=== PATIENT | male | born 1945 | race Two or more races ===

== ENCOUNTER 2017-09-21 13:43 | Emergency (ER) | payer MEDICARE, OTHER ==
[~2017-09-21] VITALS: Ht 185.4 cm; Wt 72.1 kg
[2017-09-21 13:50] VITALS: BP 144/87
--- NOTE | 2017-09-21 17:06 | NUR ---
CALLED [facility] FOR TRANSPORT ETA OF 1830 WAS GIVEN. TRIP#[id number]
== END 2017-09-21 18:44 | disposition home or self-care (01) ==
LOC: ER 13:46
DX: L89.619 Pressure ulcer of right heel, unspecified stage (principal); E11.9 Type 2 diabetes mellitus without complications; F32.9 Major depressive disorder, single episode, unspecified; G47.00 Insomnia, unspecified; I10 Essential (primary) hypertension; Z86.73 Personal history of transient ischemic attack (TIA), and cerebral infarction without residual deficits
CPT/HCPCS: 99283; A4606 ×2; Z7610

== ENCOUNTER 2017-09-29 12:20 | Inpatient (IN) | payer MEDICARE, OTHER ==
[~2017-09-29] VITALS: Ht 170.2 cm; Wt 70.3 kg
--- NOTE | 2017-09-29 12:20 | NUR ---
[facility],SENT BY DR BRICEÑO FOR FAILURE TO THRIVE POOR PO INTAKE
--- NOTE | 2017-09-29 12:35 | NUR ---
DR BRICEÑO WAS PAGED.
--- NOTE | 2017-09-29 12:42 | NUR ---
R HAND 20G INSERTED, BLOOD DRAWN, CALLED LAB FOR STEAM FINISHER
--- NOTE | 2017-09-29 12:50 | NUR ---
CALLED NURSING LOOM CHECKER AND REQUESTED A MED SURG BED FOR THIS PT.
[2017-09-29 13:10] LABS: BASOPHILS # (AUTO) 0.1 /CMM (0.0-0.2); BASOPHILS % (AUTO) 1.3 % (0.0-2.0); EOSINOPHILS % (AUTO) 3.8 % (0.0-6.0); HEMATOCRIT 31 % (39-51); HEMOGLOBIN 10.3 g/dL (13.5-17.5); LYMPHOCYTES # (AUTO) 1.8 /CMM (0.8-4.8); LYMPHOCYTES % (AUTO) 25.1 % (20.0-44.0); MEAN CORPUSCULAR HGB CONC 34 g/dl (31.0-36.0); MEAN CORPUSCULAR VOLUME 84 fL (80-96); MONOCYTES # (AUTO) 0.4 /CMM (0.1-1.30); MONOCYTES % (AUTO) 4.9 % (2.0-12.0); NEUTROPHILS # (AUTO) 4.6 /CMM (1.8-8.9); NEUTROPHILS % (AUTO) 64.9 % (43.0-81.0); PLATELET COUNT (AUTO) 134 /CMM (150-450); RDW COEFFICIENT OF VARIATION 13.4 (11.5-15.0); RED BLOOD CELL COUNT(AUTO) 3.64 MIL/uL (4.5-6.0); WHITE BLOOD COUNT (AUTO) 7.2 K/uL (4.3-11.0)
[2017-09-29 13:19] LABS: CALCIUM, SERUM 8.3 mg/dL (8.5-10.1); CREATININE 1.2 mg/dL (0.6-1.3); POTASSIUM 4.6 mmol/L (3.5-5.1)
[2017-09-29 13:25] LABS: ALBUMIN 2.9 g/dL (3.4-5.0); BILIRUBIN,DIRECT 0.1 mg/dL (0.0-0.2); BILIRUBIN,TOTAL 0.6 mg/dL (0.2-1.0); TOTAL PROTEIN, SERUM 6.6 g/dL (6.4-8.2)
[2017-09-29] MEDS ORDERED: Z GUARD REMEDY 2 OZ OINT TP PRN (13:30)
[2017-09-29] MEDS ORDERED: HYDROCODONE/APAP 5/325MG 1 EACH TABLET PO PRN (13:30)
[2017-09-29] MEDS ORDERED: MAG HYDROX/AL HYDROX/SIMETH 30 ML UDC PO PRN (13:30)
[2017-09-29] MEDS ORDERED: MAGNESIUM HYDROXIDE 30 ML UDC PO PRN ×2 (13:30→18:00)
[2017-09-29] MEDS ORDERED: ONDANSETRON HCL/PF 4 MG/2 ML VIAL IVP PRN (13:30)
[2017-09-29] MEDS ORDERED: ACETAMINOPHEN 325 MG TABLET PO PRN ×2 (13:30→18:00)
--- NOTE | 2017-09-29 13:35 | NUR ---
UNABLE TO PROVIDE URINE DR DELGADO AWARE
--- NOTE | 2017-09-29 13:48 | NUR ---
PATIENT ASSIGNED TO 310-2, PEDRO PABLO RUGGIERO KINZA
--- NOTE | 2017-09-29 13:56 | NUR ---
given report to [facility] admitting . failure to thrive
[2017-09-29] MEDS ORDERED: ASPI-1169 PO (13:57)
[2017-09-29] MEDS ORDERED: LISI40TA4 PO (13:57)
[2017-09-29] MEDS ORDERED: BISA10SU61 RC (13:57)
[2017-09-29] MEDS ORDERED: HYDR-4076 PO (13:57)
[2017-09-29] MEDS ORDERED: CHOL20004 PO (13:57)
[2017-09-29] MEDS ORDERED: ASCO500T9 PO (13:57)
[2017-09-29] MEDS ORDERED: ZOLP10TA2 PO (13:57)
[2017-09-29] MEDS ORDERED: ATOR10TA PO (13:57)
[2017-09-29] MEDS ORDERED: LIDO30AD10 TP (13:57)
[2017-09-29] MEDS ORDERED: TRAZ-182 PO (13:57)
[2017-09-29] MEDS ORDERED: FERR325T23 PO (13:57)
[2017-09-29] MEDS ORDERED: DOCU-141 PO (13:57)
[2017-09-29] MEDS ORDERED: ZINC220C6 PO (13:57)
[2017-09-29] MEDS ORDERED: AMIN887L PO (13:57)
[2017-09-29] MEDS ORDERED: INSU100V30 SQ (13:57)
[2017-09-29] MEDS ORDERED: ACET325T53 PO (13:57)
[2017-09-29] MEDS ORDERED: TAMS0.4C34 PO (13:57)
[2017-09-29] MEDS ORDERED: ONDA4TAB8 PO (13:57)
[2017-09-29] MEDS ORDERED: MAGN400O6 PO (13:57)
[2017-09-29] MEDS ORDERED: AMLO10TA6 PO (13:57)
[2017-09-29] MEDS ORDERED: METF-440 PO (13:57)
[2017-09-29] MEDS ORDERED: MAGN400T6 PO (13:57)
[2017-09-29] MEDS ORDERED: MULT-447 PO (13:57)
[2017-09-29] MEDS ORDERED: NA P133E RC (13:57)
[2017-09-29 15:00] VITALS: BP 109/73
--- NOTE | 2017-09-29 15:00 | NUR ---
RN NOTES PATIENT RECEIVED FROM ER VIA GURNEY, PT AWAKE ALERT AND VERBALLY RESPONSIVE ABLE TO MAKE NEEDS KNOWN. RESPIRATIONS EVEN AND UNLABORED, DENIES ANY PAIN OR DISCOMFORT. 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 IV ACCESS TO RIGHT HAND PATENT AND INTACT NO REDNESS OR INFILTRATION NOTED. DR. BRICEÑO AWARE PT IS ON UNIT, AWARE OF MED RECON WILL CARRY OUT ADMISSION ORDERS. ORIENTED PT TO ROOM AND UNIT, WILL CONTINUE TO MONITOR
[2017-09-29] MEDS: ENOXAPARIN SODIUM 40 MG/0.4 ML DISP.SYRIN SQ SCH (15:12)
[2017-09-29] MEDS ORDERED: hydrALAZINE HCL 25 MG TABLET PO PRN (18:00)
[2017-09-29] MEDS ORDERED: ZOLPIDEM TARTRATE 10 MG TABLET PO PRN (18:00)
[2017-09-29] MEDS ORDERED: BISACODYL SUPP (10 MG) 10 MG/SUPP.RECT SUPP.RECT RC PRN (18:00)
[2017-09-29] MEDS ORDERED: NA PHOS,M-B/NA PHOS,DI-BA 1 EA ENEMA RC PRN (18:00)
[2017-09-29] MEDS ORDERED: ONDANSETRON 4 MG TAB.RAPDIS PO PRN (18:00)
--- NOTE | 2017-09-29 19:36 | NUR ---
RN CLOSING NOTES PATIENT AWAKE ALERT AND VERBALLY RESPONSIVE,RESPIRATIONS EVEN AND UNLABORED, DENIES ANY PAIN OR DISCOMFORT. 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 IV ACCESS TO RIGHT HAND PATENT AND INTACT NO REDNESS OR INFILTRATION NOTED. DR. BRICEÑO AWARE PT IS ON UNIT, AWARE OF MED RECON WILL CARRY OUT ADMISSION ORDERS. ORIENTED PT TO ROOM AND UNIT, ENDORSED TO NEXT SHIFT FOR CONTINUITY OF CARE
[2017-09-29 20:00] VITALS: BP 117/72
--- NOTE | 2017-09-29 20:00 | NUR ---
MS JO-ANN INITIAL NOTES SEEN PT IN BED ON SITTING POSITION AWAKE AND ALERT WATCHING TV AT THIS TIME. DENIES ANY PAIN OR ANY DISCOMFORT. BREATHING EVEN AND NON-LABORED . KEPT HIM WARM AND COMFORTABLE AT ALL TIME. PLACE CALL LIGHT AT REACH. WILL CONTINUE TO MONITOR.
[2017-09-29] MEDS: MAGNESIUM OXIDE 400 MG TABLET PO SCH (21:18)
[2017-09-29] MEDS: TAMSULOSIN 0.4 MG CAP.SR.24H PO SCH (21:18)
[2017-09-29] MEDS: TRAZODONE 50 MG TABLET PO SCH (21:19)
[2017-09-29] MEDS: ATORVASTATIN 10 MG TABLET PO SCH (21:19)
[2017-09-29] MEDS: ZOLPIDEM TARTRATE 5 MG TABLET PO PRN (21:19)
--- NOTE | 2017-09-30 | NUR ---
MS MACHINIST GENERAL NOTES PT SLEEPING COMFORTABLY AFTER SLEEP MEDICATION GIVEN ORDERED. RESPIRATION EVEN AND NON-LABORED. KEPT HIM WARM AND COMFORTABLE AT ALL TIMES. PLACE CALL LIGHT AT REACH.
--- NOTE | 2017-09-30 06:54 | NUR ---
MS COTTON PICKER CLOSING NOTES PT WOKE UP AND MORNING CARE DONE . SLEPT WELL AND STABLE RAPHAEL THE NIGHT AND ALL DUE MEDS GIVEN . KEPT HIM WARM AND COMFORTABLE AT ALL TIMES. PLACE CALL LIGHT AT REACH. ENDORSE TO AM NURSE FOR CONTINUITY OF CARE. PLACE CALL LIGHT AT REACH.
[2017-09-30 06:55] LABS: BASOPHILS # (AUTO) 0.1 /CMM (0.0-0.2); HEMATOCRIT 29 % (39-51); HEMOGLOBIN 9.4 g/dL (13.5-17.5); LYMPHOCYTES # (AUTO) 1.8 /CMM (0.8-4.8); LYMPHOCYTES % (AUTO) 28.7 % (20.0-44.0); MEAN CORPUSCULAR HGB CONC 33 g/dl (31.0-36.0); MEAN CORPUSCULAR VOLUME 85 fL (80-96); MONOCYTES # (AUTO) 0.5 /CMM (0.1-1.30); MONOCYTES % (AUTO) 7.2 % (2.0-12.0); NEUTROPHILS # (AUTO) 3.7 /CMM (1.8-8.9); NEUTROPHILS % (AUTO) 59.1 % (43.0-81.0); PLATELET COUNT (AUTO) 123 /CMM (150-450); RDW COEFFICIENT OF VARIATION 14.3 (11.5-15.0); RED BLOOD CELL COUNT(AUTO) 3.36 MIL/uL (4.5-6.0); WHITE BLOOD COUNT (AUTO) 6.3 K/uL (4.3-11.0)
[2017-09-30 07:18] LABS: CALCIUM, SERUM 8.5 mg/dL (8.5-10.1); CREATININE 0.9 mg/dL (0.6-1.3); PHOSPHORUS 3.2 mg/dL (2.5-4.9)
[2017-09-30 08:00] VITALS: BP 106/50
--- NOTE | 2017-09-30 08:00 | NUR ---
MS RN NOTES PATIENT IN BED RESTING NO SOB OR ACUTE DISTRESS NOTED. PATIENT ALERT, ORIENTED X 3. PERIPHERAL IV INTACT PATENT. BED IN LOW LOCKED POSITION, CALL LIGHT WITHIN REACH. WILL CONTINUE TO MONITOR.
[2017-09-30] MEDS: ASPIRIN 81 MG TAB.CHEW PO SCH (08:23)
[2017-09-30] MEDS: CHOLECALCIFEROL 1,000 UNIT TABLET (VIT D3) PO SCH (08:23)
[2017-09-30] MEDS: FERROUS SULFATE (325 MG) 325 MG/TAB TABLET PO SCH ×2 (08:23→16:47)
[2017-09-30] MEDS: ZINC SULFATE 220 MG CAPSULE PO SCH (08:23)
[2017-09-30] MEDS: ASCORBIC ACID 500 MG TABLET PO SCH (08:23)
[2017-09-30] MEDS: MULTIVIT, IRON, MIN NO. 8, FA 1 TAB PO SCH (08:23)
[2017-09-30] MEDS: DOCUSATE SODIUM 100 MG CAPSULE PO SCH (08:23)
[2017-09-30] MEDS: AMLODIPINE BESYLATE 10 MG TABLET PO SCH (08:24)
[2017-09-30] MEDS: LISINOPRIL (20MG) 20 MG TABLET PO SCH (08:24)
[2017-09-30] MEDS: LIDOCAINE 5% (PATCH) 1 EA PATCH TP SCH (08:24)
[2017-09-30] MEDS: PROSTAT (PYXIS) 30 ML UDC PO SCH (09:00)
[2017-09-30] MEDS ORDERED: LIDOCAINE 1% INJ 50 ML MDV IJ ONE (14:00)
--- NOTE | 2017-09-30 15:30 | NUR ---
MS RN NOTES PATIENT SEEN BY DR LOMBARDI PEDIATRIST CONSENT OBTAINED FOR DEBRIDEMENT OF THE LEFT HEEL. PATIENT VERBALIZED UNDERSTANDING OF PROCEDURE. DEBRIDEMENT PERFORMED PATIENT TOLERATED WELL. WILL CONTINUE TO MONITOR FOR BLEEDING.
[2017-09-30 16:00] VITALS: BP 143/86
--- NOTE | 2017-09-30 18:42 | NUR ---
MS RN NOTES PATIENT IN BED RESTING NO SOB OR ACUTE DISTRESS NOTED. ALL DUE MEDICATIONS ADMINISTERED. ALL NEEDS MET. WILL ENDORSE CARE TP PM SHIFT.
[2017-09-30 20:00] VITALS: BP 127/77
[2017-09-30] MEDS: ATORVASTATIN 10 MG TABLET PO SCH (21:10)
[2017-09-30] MEDS: TRAZODONE 50 MG TABLET PO SCH (21:10)
[2017-09-30] MEDS: MAGNESIUM OXIDE 400 MG TABLET PO SCH (21:10)
[2017-09-30] MEDS: TAMSULOSIN 0.4 MG CAP.SR.24H PO SCH (21:10)
[2017-09-30] MEDS: ENOXAPARIN SODIUM 40 MG/0.4 ML DISP.SYRIN SQ SCH (21:10)
[2017-09-30] MEDS: ZOLPIDEM TARTRATE 5 MG TABLET PO PRN (22:29)
[2017-10-01 04:00] VITALS: BP 135/84
--- NOTE | 2017-10-01 06:16 | NUR ---
MS RN NOTES AWAKE & RESPONSIVE. NOT IN ANY DISTRESS. NO SOB NOTED. DENIES ANY PAIN OR DISCOMFORT AT THIS TIME. WITH IV-HL PATENT & INTACT. MONITORED ACCORDINGLY. CALL LIGHT WITHIN REACH. BED IN LOWEST POSITION. SR UP X 2 FOR SAFETY. WILL ENDORSE TO NEXT SHIFT.
--- NOTE | 2017-10-01 07:15 | NUR ---
RN NOTES PT IS LAYING DOWN IN BED, RESTING COMFORTABLY. PT ON RA, RESPIRATIONS ARE EVEN AND UNLABORED. IV ON R HAND INTACT AND SL. NO SIGNS OF DISTRESS NOTED. SAFETY MEASURES ARE IN PLACE, CALL LIGHT IS IN REACH. WILL CONTINUE TO MONITOR.
[2017-10-01 08:00] VITALS: BP 120/75
[2017-10-01] MEDS: CHOLECALCIFEROL 1,000 UNIT TABLET (VIT D3) PO SCH (08:24)
[2017-10-01] MEDS: ASPIRIN 81 MG TAB.CHEW PO SCH (08:24)
[2017-10-01] MEDS: ZINC SULFATE 220 MG CAPSULE PO SCH (08:24)
[2017-10-01] MEDS: ASCORBIC ACID 500 MG TABLET PO SCH (08:24)
[2017-10-01] MEDS: FERROUS SULFATE (325 MG) 325 MG/TAB TABLET PO SCH ×2 (08:24→16:38)
[2017-10-01] MEDS: MULTIVIT, IRON, MIN NO. 8, FA 1 TAB PO SCH (08:24)
[2017-10-01] MEDS: DOCUSATE SODIUM 100 MG CAPSULE PO SCH (08:24)
[2017-10-01] MEDS: AMLODIPINE BESYLATE 10 MG TABLET PO SCH (08:24)
[2017-10-01] MEDS: LISINOPRIL (20MG) 20 MG TABLET PO SCH (08:24)
[2017-10-01] MEDS: PROSTAT (PYXIS) 30 ML UDC PO SCH (08:25)
[2017-10-01] MEDS: LIDOCAINE 5% (PATCH) 1 EA PATCH TP SCH (08:25)
[2017-10-01 16:00] VITALS: BP 129/78
[2017-10-01 16:03] VITALS: BP 129/78
--- NOTE | 2017-10-01 18:31 | NUR ---
RN NOTES PT IS SITTING UP IN BED, AWAKE AND ALERT. PT ON RA, RESPIRATIONS ARE EVEN AND UNLABORED. IV ON R HAND INTACT AND SL. ALL MEDS WERE GIVEN ORDERED AND PT NEEDS MET. WOUND TREATMENT DONE ORDERED. NO SIGNS OF DISTRESS NOTED. SAFETY MEASURES ARE IN PLACE, CALL LIGHT IS IN REACH. WILL ENDORSE TO ENGAGEMENT LEAD RN FOR CONTINUITY OF CARE.
[2017-10-01 20:00] VITALS: BP 126/76
[2017-10-01 20:43] VITALS: BP 169/105
[2017-10-01] MEDS: TAMSULOSIN 0.4 MG CAP.SR.24H PO SCH (21:50)
[2017-10-01] MEDS: MAGNESIUM OXIDE 400 MG TABLET PO SCH (21:50)
[2017-10-01] MEDS: TRAZODONE 50 MG TABLET PO SCH (21:50)
[2017-10-01] MEDS: ATORVASTATIN 10 MG TABLET PO SCH (21:50)
[2017-10-01] MEDS: ENOXAPARIN SODIUM 40 MG/0.4 ML DISP.SYRIN SQ SCH (21:51)
[2017-10-01] MEDS: ZOLPIDEM TARTRATE 5 MG TABLET PO PRN (22:03)
--- NOTE | 2017-10-01 22:11 | NUR ---
AMBIEN 5 MG TAB 1 PO GIVEN FOR SLEEP, PER PATIENT'S REQUEST
--- NOTE | 2017-10-02 06:10 | NUR ---
MS RN NOTES RECEIVED PT FROM [facility] , ENDORSED BY BAHMAN SHAFFER . PT IS AWAKE, A/O X 3 , VERBALLY RESPONSIVE NO DISTRESS NOR SOB NOTED. DENIES ANY PAIN OR DISCOMFORT AT THIS TIME. IV ON RIGHT HAND INTACT AND PATENT, NO S/S OF INFILTRATION NOTED. WITH CLEAN AND INTACT DRESSING ON RIGHT HEEL. ALL NEEDS ATTENDED AND MET. BARNEY CONT TO MONITOR
--- NOTE | 2017-10-02 06:12 | NUR ---
TRANSFERRED TO ROOM 2071, REPORT GIVEN TO BAHMAN DE LA TORRE FOR CONTINUITY OF CARE
--- NOTE | 2017-10-02 07:00 | NUR ---
MS RN NOTES PT IN BED, RESTING AT THIS TIME, APPEARS COMFORTABLE. NO DISTRESS, NO SOB NOTED, STABLE. NEEDS ATTENDED. IV SITE ON RIGHT HAND INTACT AND PATENT. CALL LIGHT WITHIN REACH. SAFETY PRECAUTIONS OBSERVED. WILL ENDORSE TO NEXT SHIFT FOR KINZA.
--- NOTE | 2017-10-02 07:30 | NUR ---
AM RN NOTE Receive patient awake, A/O X3 verbally responsive. No SOB noted resp even and non-labored. RU arm contracted. IV site intact and patent. Bed in low locked position. Will continue to monitor. Call light with in reach.
[2017-10-02 08:00] VITALS: BP 128/75
[2017-10-02] MEDS: ASCORBIC ACID 500 MG TABLET PO SCH (08:48)
[2017-10-02] MEDS: AMLODIPINE BESYLATE 10 MG TABLET PO SCH (08:48)
[2017-10-02] MEDS: FERROUS SULFATE (325 MG) 325 MG/TAB TABLET PO SCH ×2 (08:48→16:17)
[2017-10-02] MEDS: DOCUSATE SODIUM 100 MG CAPSULE PO SCH (08:48)
[2017-10-02] MEDS: CHOLECALCIFEROL 1,000 UNIT TABLET (VIT D3) PO SCH (08:49)
[2017-10-02] MEDS: MULTIVIT, IRON, MIN NO. 8, FA 1 TAB PO SCH (08:49)
[2017-10-02] MEDS: ZINC SULFATE 220 MG CAPSULE PO SCH (08:49)
[2017-10-02] MEDS: LIDOCAINE 5% (PATCH) 1 EA PATCH TP SCH (08:49)
[2017-10-02] MEDS: LISINOPRIL (20MG) 20 MG TABLET PO SCH (08:49)
[2017-10-02] MEDS: ASPIRIN 81 MG TAB.CHEW PO SCH (08:49)
[2017-10-02] MEDS: PROSTAT (PYXIS) 30 ML UDC PO SCH (08:57)
[2017-10-02 16:00] VITALS: BP 120/78
--- NOTE | 2017-10-02 18:40 | NUR ---
AM RN NOTE Patient resting in his bed, no acute distress noted. Will endorse care to next shift.
[2017-10-02 20:00] VITALS: BP 123/77
[2017-10-02] MEDS: ENOXAPARIN SODIUM 40 MG/0.4 ML DISP.SYRIN SQ SCH (21:09)
[2017-10-02] MEDS: ZOLPIDEM TARTRATE 5 MG TABLET PO PRN (22:51)
[2017-10-02] MEDS: ATORVASTATIN 10 MG TABLET PO SCH (22:51)
[2017-10-02] MEDS: TRAZODONE 50 MG TABLET PO SCH (22:51)
[2017-10-02] MEDS: MAGNESIUM OXIDE 400 MG TABLET PO SCH (22:51)
[2017-10-02] MEDS: TAMSULOSIN 0.4 MG CAP.SR.24H PO SCH (22:52)
--- NOTE | 2017-10-03 07:34 | NUR ---
MS RN OPENING NOTE PATIENT IS ALERT AND ORIENTED X3. NO PAIN AT THIS TIME. NO SOB OR DISTRESS NOTED. CALL LIGHT WITHIN REACH. SAFETY MEASURES IMPLEMENTED. ABLE TO COMMUNICATE NEEDS. IV INTACT AND PATENT NO REDNESS OR SWELLING NOTED. WOUND DRESSING TO BE DONE DAILY. AWAITING SNF PLACEMENT WILL FOLLOW UP WITH CASE MANAGEMENT. WILL CONTINUE TO MONITOR THROUGHOUT SHIFT.
[2017-10-03 08:00] VITALS: BP 130/88
[2017-10-03] MEDS: ASPIRIN 81 MG TAB.CHEW PO SCH (08:56)
[2017-10-03] MEDS: DOCUSATE SODIUM 100 MG CAPSULE PO SCH (08:56)
[2017-10-03] MEDS: ASCORBIC ACID 500 MG TABLET PO SCH (08:56)
[2017-10-03] MEDS: LISINOPRIL (20MG) 20 MG TABLET PO SCH (08:56)
[2017-10-03] MEDS: ZINC SULFATE 220 MG CAPSULE PO SCH (08:56)
[2017-10-03] MEDS: FERROUS SULFATE (325 MG) 325 MG/TAB TABLET PO SCH ×2 (08:56→16:11)
[2017-10-03] MEDS: MULTIVIT, IRON, MIN NO. 8, FA 1 TAB PO SCH (08:56)
[2017-10-03] MEDS: CHOLECALCIFEROL 1,000 UNIT TABLET (VIT D3) PO SCH (08:56)
[2017-10-03] MEDS: AMLODIPINE BESYLATE 10 MG TABLET PO SCH (08:57)
[2017-10-03] MEDS: LIDOCAINE 5% (PATCH) 1 EA PATCH TP SCH (08:57)
[2017-10-03] MEDS: PROSTAT (PYXIS) 30 ML UDC PO SCH (08:57)
[2017-10-03] MEDS: HYDROGEL DRESSING 90 GM TUBE TP SCH (09:30)
--- NOTE | 2017-10-03 12:59 | NUR ---
MS RN NOTE WOUND DRESSING CHANGED, WILL CHANGED NEEDED IF SOILED.
[2017-10-03 16:00] VITALS: BP 125/83
--- NOTE | 2017-10-03 19:47 | NUR ---
MS RN CLOSING NOTES PATIENT IN STABLE CONDITION. IN NO APPARENT DISTRESS. BEDSIDE RAILS ARE UPX2. BED IS LOCKED AND LOWERED. CALL LIGHT IS WITHIN REACH. IV LINE IS INTACT AND PATENT. WILL ENDORSE CARE TO BORDEREAU CLERK NURSE FOR KINZA.
--- NOTE | 2017-10-03 19:55 | NUR ---
RN OPENING NOTES RECEIVED REPORT FROM DAYSHIFT RN RADHA. FOUND Pt AWAKE, RESTING IN BED, WATCHING TV. NO S/S OF ACUTE DISTRESS OR SOB NOTED. Pt IS A/OX3, VERBAL, ABLE TO MAKE NEEDS KNOWN. NO C/O PAIN AT THIS TIME. IV ACCESS ON RHAND #20G, SL. SAFETY MEASURES IN PLACE. BED LOW, LOCKED, HOB ELEVATED, SIDE RAILS UP, CALL LIGHT AND BEDSIDE TABLE WITHIN REACH. WILL CONTINUE TO MONITOR Pt THROUGHOUT THE NIGHT FOR SAFETY.
[2017-10-03 20:00] VITALS: BP 115/75
[2017-10-03] MEDS: MAGNESIUM OXIDE 400 MG TABLET PO SCH (22:29)
[2017-10-03] MEDS: TAMSULOSIN 0.4 MG CAP.SR.24H PO SCH (22:29)
[2017-10-03] MEDS: TRAZODONE 50 MG TABLET PO SCH (22:29)
[2017-10-03] MEDS: ATORVASTATIN 10 MG TABLET PO SCH (22:29)
[2017-10-03] MEDS: ENOXAPARIN SODIUM 40 MG/0.4 ML DISP.SYRIN SQ SCH (22:30)
[2017-10-03] MEDS: ZOLPIDEM TARTRATE 5 MG TABLET PO PRN (22:32)
--- NOTE | 2017-10-03 22:51 | NUR ---
RN NOTES Pt REFUSED PICTURE OF SACRUM. ONLY ALLOWED PICTURE TO BE TAKEN OF HIS RT HEEL WOUND.
--- NOTE | 2017-10-04 06:55 | NUR ---
RN CLOSING NOTES NO SIGNIFICANT CHANGES IN Pt's CONDITION. Pt REMAINS STABLE AT THIS TIME. NO S/S OF ACUTE DISTRESS OR SOB NOTED DURING THE NIGHT. ALL NEEDS MET AND ATTENDED TO. SAFETY MEASURES IN PLACE. WILL ENDORSE TO DAYSHIFT RN FOR Pt's KINZA.
--- NOTE | 2017-10-04 07:37 | NUR ---
MS RN OPENING NOTES RECEIVED PATIENT IN STABLE CONDITION. IN NO APPARENT DISTRESS. BEDSIDE RAILS ARE UPX2. BED IS LOCKED AND LOWERED. CALL LIGHT IS WITHIN REACH. IV LINE IS INTACT AND PATENT. WILL CONTINUE TO MONITOR.
[2017-10-04 08:00] VITALS: BP 125/79
[2017-10-04] MEDS: ZINC SULFATE 220 MG CAPSULE PO SCH (08:25)
[2017-10-04] MEDS: AMLODIPINE BESYLATE 10 MG TABLET PO SCH (08:25)
[2017-10-04] MEDS: FERROUS SULFATE (325 MG) 325 MG/TAB TABLET PO SCH ×2 (08:25→16:11)
[2017-10-04] MEDS: ASCORBIC ACID 500 MG TABLET PO SCH (08:25)
[2017-10-04] MEDS: CHOLECALCIFEROL 1,000 UNIT TABLET (VIT D3) PO SCH (08:25)
[2017-10-04] MEDS: LISINOPRIL (20MG) 20 MG TABLET PO SCH (08:26)
[2017-10-04] MEDS: MULTIVIT, IRON, MIN NO. 8, FA 1 TAB PO SCH (08:26)
[2017-10-04] MEDS: ASPIRIN 81 MG TAB.CHEW PO SCH (08:26)
[2017-10-04] MEDS: DOCUSATE SODIUM 100 MG CAPSULE PO SCH (08:26)
[2017-10-04] MEDS: LIDOCAINE 5% (PATCH) 1 EA PATCH TP SCH (08:27)
[2017-10-04] MEDS: PROSTAT (PYXIS) 30 ML UDC PO SCH (08:27)
[2017-10-04] MEDS: HYDROGEL DRESSING 90 GM TUBE TP SCH (08:27)
--- NOTE | 2017-10-04 19:00 | NUR ---
MS RN CLOSING NOTES PATIENT IN STABLE CONDITION. IN NO APPARENT DISTRESS. BEDSIDE RAILS ARE UPX2. BED IS LOCKED AND LOWERED. CALL LIGHT IS WITHIN REACH. ALL NEEDS WERE MET. IV LINE IS INTACT AND PATENT. WILL ENDORSE CARE TO SUPERVISOR PORCELAIN DEPARTMENT NURSE FOR KINZA.
[2017-10-04 20:00] VITALS: BP 160/68
[2017-10-04] MEDS: TRAZODONE 50 MG TABLET PO SCH (22:04)
[2017-10-04] MEDS: ATORVASTATIN 10 MG TABLET PO SCH (22:04)
[2017-10-04] MEDS: MAGNESIUM OXIDE 400 MG TABLET PO SCH (22:04)
[2017-10-04] MEDS: TAMSULOSIN 0.4 MG CAP.SR.24H PO SCH (22:04)
[2017-10-04] MEDS: ENOXAPARIN SODIUM 40 MG/0.4 ML DISP.SYRIN SQ SCH (22:07)
[2017-10-04] MEDS: ZOLPIDEM TARTRATE 5 MG TABLET PO PRN (22:08)
--- NOTE | 2017-10-05 06:55 | NUR ---
RN CLOSING NOTES NO SIGNIFICANT CHANGES IN Pt's CONDITION. Pt REMAINS STABLE AT THIS TIME. NO S/S OF ACUTE DISTRESS OR SOB NOTED DURING THE NIGHT. ALL NEEDS MET AND ATTENDED TO. SAFETY MEASURES IN PLACE. POSSIBLE DC TODAY IN THE AM. WILL ENDORSE TO DAYSHIFT RN FOR Pt's KINZA.
--- NOTE | 2017-10-05 07:25 | NUR ---
RN NOTES PT IS SITTING UP IN BED, RESTING COMFORTABLY. PT ON RA, RESPIRATIONS ARE EVEN AND UNLABORED. IV ON R HAND INTACT AND SL. NO SIGNS OF DISTRESS NOTED. SAFETY MEASURES ARE IN PLACE, CALL LIGHT IS IN REACH. WILL CONTINUE TO MONITOR.
[2017-10-05 08:00] VITALS: BP 119/68
[2017-10-05] MEDS: ASPIRIN 81 MG TAB.CHEW PO SCH (08:32)
[2017-10-05] MEDS: MULTIVIT, IRON, MIN NO. 8, FA 1 TAB PO SCH (08:32)
[2017-10-05] MEDS: CHOLECALCIFEROL 1,000 UNIT TABLET (VIT D3) PO SCH (08:32)
[2017-10-05] MEDS: PROSTAT (PYXIS) 30 ML UDC PO SCH (08:32)
[2017-10-05] MEDS: LISINOPRIL (20MG) 20 MG TABLET PO SCH (08:32)
[2017-10-05] MEDS: FERROUS SULFATE (325 MG) 325 MG/TAB TABLET PO SCH ×2 (08:32→16:23)
[2017-10-05] MEDS: LIDOCAINE 5% (PATCH) 1 EA PATCH TP SCH (08:32)
[2017-10-05] MEDS: AMLODIPINE BESYLATE 10 MG TABLET PO SCH (08:32)
[2017-10-05] MEDS: DOCUSATE SODIUM 100 MG CAPSULE PO SCH (08:32)
[2017-10-05] MEDS: ASCORBIC ACID 500 MG TABLET PO SCH (08:32)
[2017-10-05] MEDS: ZINC SULFATE 220 MG CAPSULE PO SCH (08:32)
[2017-10-05] MEDS: HYDROGEL DRESSING 90 GM TUBE TP SCH (08:37)
[2017-10-05 12:00] VITALS: BP 111/71
[2017-10-05 16:00] VITALS: BP 117/68
--- NOTE | 2017-10-05 18:53 | NUR ---
RN NOTES PT IS SITTING UP IN BED, RESTING COMFORTABLY. PT ON RA, RESPIRATIONS ARE EVEN AND UNLABORED. IV ON R HAND INTACT AND PATENT. ALL MEDS WERE GIVEN ORDERED AND PT NEEDS MET. WOUND CARE PROVIDED ORDERED. NO SIGNS OF DISTRESS NOTED. SAFETY MEASURES ARE IN PLACE, CALL LIGHT IS IN REACH. WILL ENDORSE TO FAMILY LAW LEGAL ASSISTANT RN FOR CONTINUITY OF CARE.
--- NOTE | 2017-10-05 19:55 | NUR ---
RN OPENING NOTES RECEIVED REPORT FROM DAVY FRANZ. FOUND Pt AWAKE, RESTING IN BED. NO S/S OF ACUTE DISTRESS OR SOB NOTED. Pt IS A/OX3, VERBAL, ABLE TO MAKE NEEDS KNOWN. NO C/O PAIN AT THIS TIME. IV ACCESS ON RHAND #20G, SL. SAFETY MEASURES IN PLACE. BED LOW, LOCKED, HOB ELEVATED, SIDE RAILS UP, CALL LIGHT AND BEDSIDE TABLE WITHIN REACH. WILL CONTINUE TO MONITOR Pt THROUGHOUT THE NIGHT FOR SAFETY.
[2017-10-05 20:00] VITALS: BP 108/69
[2017-10-05] MEDS: ENOXAPARIN SODIUM 40 MG/0.4 ML DISP.SYRIN SQ SCH (21:44)
[2017-10-05] MEDS: TAMSULOSIN 0.4 MG CAP.SR.24H PO SCH (21:44)
[2017-10-05] MEDS: ZOLPIDEM TARTRATE 5 MG TABLET PO PRN (21:44)
[2017-10-05] MEDS: MAGNESIUM OXIDE 400 MG TABLET PO SCH (21:45)
[2017-10-05] MEDS: TRAZODONE 50 MG TABLET PO SCH (21:45)
[2017-10-05] MEDS: ATORVASTATIN 10 MG TABLET PO SCH (21:45)
--- NOTE | 2017-10-06 06:55 | NUR ---
RN CLOSING NOTES NO SIGNIFICANT CHANGES IN Pt's CONDITION. Pt REMAINS STABLE AT THIS TIME. NO S/S OF ACUTE DISTRESS OR SOB NOTED DURING THE NIGHT. ALL NEEDS MET AND ATTENDED TO. SAFETY MEASURES IN PLACE. WAITING FOR DC TODAY IN THE AM. WILL ENDORSE TO DAYSHIFT RN FOR Pt's KINZA.
--- NOTE | 2017-10-06 08:09 | NUR ---
RN NOTES PATIENT A/OX3, NO SOB NOTED, DENIES PAIN OR DISCOMFORT, RIGHT HEEL DRESSING C/D/I. NEEDS ATTENDED AND ANTICIPATED, CALL LIGHT WITHIN REACH, WILL CONTINUE TO MONITOR.
[2017-10-06] MEDS: LISINOPRIL (20MG) 20 MG TABLET PO SCH (09:00)
[2017-10-06] MEDS: AMLODIPINE BESYLATE 10 MG TABLET PO SCH (09:00)
[2017-10-06] MEDS: PROSTAT (PYXIS) 30 ML UDC PO SCH (09:00)
[2017-10-06 09:04] VITALS: BP 97/63
[2017-10-06] MEDS: ASPIRIN 81 MG TAB.CHEW PO SCH (09:25)
[2017-10-06] MEDS: FERROUS SULFATE (325 MG) 325 MG/TAB TABLET PO SCH (09:25)
[2017-10-06] MEDS: DOCUSATE SODIUM 100 MG CAPSULE PO SCH (09:25)
[2017-10-06] MEDS: CHOLECALCIFEROL 1,000 UNIT TABLET (VIT D3) PO SCH (09:26)
[2017-10-06] MEDS: ZINC SULFATE 220 MG CAPSULE PO SCH (09:26)
[2017-10-06] MEDS: MULTIVIT, IRON, MIN NO. 8, FA 1 TAB PO SCH (09:26)
[2017-10-06] MEDS: ASCORBIC ACID 500 MG TABLET PO SCH (09:27)
[2017-10-06] MEDS: LIDOCAINE 5% (PATCH) 1 EA PATCH TP SCH (09:29)
[2017-10-06] MEDS: HYDROGEL DRESSING 90 GM TUBE TP SCH (09:31)
--- NOTE | 2017-10-06 14:15 | NUR ---
DISCHARGE NOTE PATIENT A/OX3, VERBALLY RESPONSIVE, RECEIVED DISCHARGE INSTRUCTIONS AND VERBALIZED UNDERSTANDING, PATIENT SIGNED DISCHARGE PAPERWORKS, SKIN ASSESSMENT COMPLETED, PHOTOS TAKEN AND PLACED IN CHART. WOUND TREATMENT RENDERED, DRESSING CHANGED. PIV REMOVED, APPLIED GAUZE AND TAPE. [facility]. PATIENT LEFT VIA AMBULANCE IN NO DISTRESS. BELONGINGS RECONCILED, PATIENT BROUGHT EYEGLASSES, CELLPHONE AND HOSPICE SOCIAL WORKER WITH HIM.
== END 2017-10-06 14:15 | DRG 570 ==
LOC: ER 12:21 → MED 14:32 → MEDSG2 10-02 06:07
PROVIDERS: ADMIT Internal Medicine; ATTEND Internal Medicine
PROC: 0JBR0ZZ Excision of Left Foot Subcutaneous Tissue and Fascia, Open Approach (ICD-10-PCS; principal; 2017-09-30)
DX: L89.613 Pressure ulcer of right heel, stage 3 (principal); E43 Unspecified severe protein-calorie malnutrition; R53.2 Functional quadriplegia; I69.351 Hemiplegia and hemiparesis following cerebral infarction affecting right dominant side; E11.9 Type 2 diabetes mellitus without complications; R62.7 Adult failure to thrive; I10 Essential (primary) hypertension; F32.9 Major depressive disorder, single episode, unspecified; E78.5 Hyperlipidemia, unspecified; Z79.4 Long term (current) use of insulin; Z79.84 Long term (current) use of oral hypoglycemic drugs; Z79.82 Long term (current) use of aspirin; Z79.899 Other long term (current) drug therapy; E55.9 Vitamin D deficiency, unspecified; N40.0 Benign prostatic hyperplasia without lower urinary tract symptoms; E66.01 Morbid (severe) obesity due to excess calories; Z68.24 Body mass index [BMI] 24.0-24.9, adult
CPT/HCPCS: 36415; 80048-TC; 80076-TC; 83735-TC; 84100-TC; 85025-TC; 87081-TC; A4606; A6248; A6402; A6403; J1650; J3490; Z7610

== ENCOUNTER 2019-07-27 05:24 | Emergency (ER) | payer MEDICARE, OTHER ==
[~2019-07-27] VITALS: Ht 170.2 cm; Wt 85.3 kg
[~2019-07-27 05:24] MED LIST: ACET325T53 PO; AMIN887L PO; AMLO10TA7 PO; ASCO500T9 PO; ASPI-1169 PO; BISA10SU61 RC; BLOO-668 IN; CHOL20004 PO; DOCU-141 PO; FERR325T23 PO; HYDR-4076 PO; HYDR-4384 PO; INSU100V11 SQ; LISI40TA4 PO; MAGN400O6 PO; MAGN400T8 PO; METF-440 PO; MULT-447 PO; NA P133E RC; POLY15DR40 EACHEYE; TAMS0.4C34 PO; TRAZ-182 PO; ZINC220C6 PO; ZOLP10TA2 PO
--- NOTE | 2019-07-27 05:38 | NUR ---
ETIENNE FROM [facility]. TO ER BED 9. AAOX2. NO RESP DISTRESS NOTED, BREATHING EVEN AND UNLABORED. PT IS BED BOUND. BROUGHT IN D/T FOUND ON FLOOR BEDSIDE HIS BED C/O PAIN ON FROM AND BACK PELVIC AREA (HIPS), R ANKLE PAIN AND A BUMP AT THE BACK OF THE HEAD. PER EMS REPORT, PT'S BED WAS ALREADY ON A LOW SETTING FOR FALL PRECAUTION, NO PADS NOTED. PT DENIES KO. NO NOTED BUMP AT THE BACK OF THE HEAD UPON PALPATION BUT PT DO COMPLAIN OF PAIN. BACK OG THE HEAD 5/10, PELVIS 7/10 AND R ANKLE 2/10. PT IS NOTED WITH CONTRACTURE ON RANGEL AND AND BILAT FOOT. AWAITING MD FOR EVAL.
--- NOTE | 2019-07-27 05:49 | NUR ---
PT VERBALIZED AT THIS TIME THE HE IS ALSO HURTING ON HIS NECK, RATES PAIN 7/10. ROM INTACT.
[2019-07-27] MEDS ORDERED: LIDOCAINE 2% JEL UROJET 10 ML MM ONE ×2 (06:37→07:30)
--- NOTE | 2019-07-27 07:03 | NUR ---
CANDLES POURER AT BEDSIDE FOR BLOOD DRAW
--- NOTE | 2019-07-27 07:03 | NUR ---
URINE COLLECTED VIA IN AND OUT CATH WITH STRICT STERILE TECHNIQUE OBSERVED DURING PROCEDURE.
[2019-07-27 07:21] LABS: BASOPHILS # (AUTO) 0.2 /CMM (0.0-0.2); BASOPHILS % (AUTO) 1.7 % (0.0-2.0); EOSINOPHILS % (AUTO) 0.6 % (0.0-6.0); HEMATOCRIT 36 % (39-51); HEMOGLOBIN 11.6 g/dL (13.5-17.5); LYMPHOCYTES # (AUTO) 0.9 /CMM (0.8-4.8); LYMPHOCYTES % (AUTO) 8.8 % (20.0-44.0); MEAN CORPUSCULAR HGB CONC 32 g/dl (31.0-36.0); MEAN CORPUSCULAR VOLUME 87 fL (80-96); MONOCYTES # (AUTO) 0.5 /CMM (0.1-1.30); MONOCYTES % (AUTO) 4.2 % (2.0-12.0); NEUTROPHILS # (AUTO) 9.1 /CMM (1.8-8.9); NEUTROPHILS % (AUTO) 84.7 % (43.0-81.0); PLATELET COUNT (AUTO) 98 /CMM (150-450); RED BLOOD CELL COUNT(AUTO) 4.14 MIL/uL (4.5-6.0); WHITE BLOOD COUNT (AUTO) 10.8 K/uL (4.3-11.0)
--- NOTE | 2019-07-27 07:22 | NUR ---
RECEIVED REPORT FROM BAHMAN FIGUEROA FOR KINZA, PT IS AAOX2, NOT IN RESPIRATORY DISTRESS, V/S STABLE, KEPT RESTED AND COMFORTABLE, WILL CONTINUE TO MONITOR.
--- NOTE | 2019-07-27 07:23 | NUR ---
PT ENDORSED TO BAHMAN KRISHNA FOR KINZA
[2019-07-27 07:29] LABS: APPEARANCE,URINE Cloudy (CLEAR); BILIRUBIN,URINE Negative (NEGATIVE); BLOOD, URINE Small Ery/uL (NEGATIVE); COLOR,URINE Yellow (YELLOW); KETONES,URINE Trace (NEGATIVE); LEUKOCYTE ESTERASE ,URINE Trace (NEGATIVE); NITRITE, URINE Negative (NEGATIVE); PH,URINE 5.5 (5.0-8.0); PROTEIN,URINE 30 mg/dl (NEGATIVE); UGLUCOSE Negative (NEGATIVE); UROBILINOGEN,URINE 0.2 EU/dL (0.2)
[2019-07-27 07:37] LABS: ALANINE AMINOTRANSFERASE 43 U/L (12-78); ALBUMIN 3.7 g/dL (3.4-5.0); ALKALINE PHOSPHATASE 126 U/L (46-116); ASPARTATE AMINOTRANSFERASE 26 U/L (15-37); BILIRUBIN,DIRECT 0.1 mg/dL (0.0-0.2); BILIRUBIN,TOTAL 0.5 mg/dL (0.2-1.0); CALCIUM, SERUM 9.5 mg/dL (8.5-10.1); CARBON DIOXIDE 22 mmol/L (21-32); CHLORIDE 104 mmol/L (98-107); CREATININE 1.6 mg/dL (0.6-1.3); GLUCOSE 160 mg/dL (74-106); POTASSIUM 4.6 mmol/L (3.5-5.1); SODIUM SERUM 138 mmol/L (136-145); TOTAL PROTEIN, SERUM 7.8 g/dL (6.4-8.2); UREA NITROGEN, BLOOD 33 mg/dL (7-18)
[2019-07-27 07:53] LABS: BACTERIA,URINE 3+ /HPF (None Seen); RBC,URINE 0-2 /HPF (0-2)
[2019-07-27 08:17] LABS: EOSINOPHILS % (MANUAL) 3 % (0-4); LYMPHOCYTES % (MANUAL) 8 % (16-48); MONOCYTES % (MANUAL) 3 % (0-11.0); NEUTROPHILS % (MANUAL) 86 (42-76)
[2019-07-27] MEDS ORDERED: CEFTRIAXONE 1 G VIAL ONE (09:16)
[2019-07-27] MEDS ORDERED: LIDOCAINE /MPF 1% VIAL 5 ML VIAL ONE (09:17)
--- NOTE | 2019-07-27 09:29 | NUR ---
called transport eta is 15 min trip number [id number] cindi
[2019-07-27] MEDS ORDERED: CEFTRIAXONE 1 G VIAL IM ONE (09:30)
--- NOTE | 2019-07-27 09:35 | NUR ---
REPORT GIVEN TO RON RUGGIERO OF [facility].
--- NOTE | 2019-07-27 09:40 | NUR ---
FOOD TRAY PROVIDED.
--- NOTE | 2019-07-27 10:03 | NUR ---
REPORT GIVEN TO EMT FOR PT TRANSFER BACK TO [facility].
--- NOTE | 2019-07-27 10:04 | NUR ---
Patient discharged to home in stable condition. Written and verbal after care instructions given. Patient verbalizes understanding of instruction.
[2019-07-27 10:05] VITALS: BP 148/64
== END 2019-07-27 10:18 | disposition home or self-care (01) ==
LOC: ER 05:26
DX: S09.8XXA Other specified injuries of head, initial encounter (principal); R41.0 Disorientation, unspecified; N39.0 Urinary tract infection, site not specified; I10 Essential (primary) hypertension; E78.5 Hyperlipidemia, unspecified; E11.9 Type 2 diabetes mellitus without complications; Z86.73 Personal history of transient ischemic attack (TIA), and cerebral infarction without residual deficits; Z79.899 Other long term (current) drug therapy; Z79.4 Long term (current) use of insulin; Z79.82 Long term (current) use of aspirin; Z79.84 Long term (current) use of oral hypoglycemic drugs; X58.XXXA Exposure to other specified factors, initial encounter; Y93.89 Activity, other specified; Y92.89 Other specified places as the place of occurrence of the external cause; Y99.8 Other external cause status
CPT/HCPCS: 36415; 70450; 72125; 80048; 80076; 81001; 84484; 85025; 87086; 96372; 99285; J0696; J3490 ×2; 81000-TC

== ENCOUNTER 2020-10-23 10:45 | Inpatient (IN) | payer MEDICARE, OTHER ==
[2020-10-23] VITALS (7 sets, daily range): BP systolic 103–171; BP diastolic 59–75
[~2020-10-23] VITALS: Ht 170.2 cm; Wt 87.1 kg
[~2020-10-23 10:45] MED LIST changes: +AMLO-213 PO; -AMLO10TA7 PO; +ASCO-352 PO; -ASCO500T9 PO; +LISI40TA13 PO; -LISI40TA4 PO
--- NOTE | 2020-10-23 11:00 | NUR ---
THE PATIENT IS KAREN MCKEON, FROM SNF, FOR EVALUATION OF LEFT HEEL DIABETIC ULCER. DENIES PAIN. IN ROOM AIR AND DENIES SOB. RESPIRATION REGULAR AND UNLABORED. ATTACHED TO THE MONITOR. WILL CONTINUE TO MONITOR THE PATIENT.
[2020-10-23] MEDS ORDERED: VANCOMYCIN 1 GM in IV D5W 250 ML IV ONE (11:30)
[2020-10-23] MEDS ORDERED: PIPERACILLIN /TAZOBACTAM 3.375 G in IV D5W 50 ML IV ONE (11:30)
[2020-10-23] MEDS ORDERED: IV NS 0.9% 1,000 ML IV ONE (11:30)
[2020-10-23 11:46] LABS: BASOPHILS # (AUTO) 0.1 /CMM (0.0-0.2); BASOPHILS % (AUTO) 1.1 % (0.0-2.0); EOSINOPHILS % (AUTO) 0.5 % (0.0-6.0); LYMPHOCYTES % (AUTO) 9.7 % (20.0-44.0); MEAN CORPUSCULAR HGB CONC 32 g/dl (31.0-36.0); MEAN CORPUSCULAR VOLUME 87 fL (80-96); MONOCYTES # (AUTO) 0.7 /CMM (0.1-1.30); NEUTROPHILS # (AUTO) 8.4 /CMM (1.8-8.9); NEUTROPHILS % (AUTO) 81.7 % (43.0-81.0); PLATELET COUNT (AUTO) 148 /CMM (150-450); RED BLOOD CELL COUNT(AUTO) 2.31 MIL/uL (4.5-6.0); WHITE BLOOD COUNT (AUTO) 10.3 K/uL (4.3-11.0)
[2020-10-23 11:49] LABS: CALCIUM, SERUM 8.3 mg/dL (8.5-10.1); CARBON DIOXIDE 24 mmol/L (21-32); CHLORIDE 105 mmol/L (98-107); CREATININE 1.9 mg/dL (0.6-1.3); GLUCOSE 228 mg/dL (74-106); HEMATOCRIT 20 % (39-51); POTASSIUM 4.3 mmol/L (3.5-5.1); SODIUM SERUM 139 mmol/L (136-145); UREA NITROGEN, BLOOD 48 mg/dL (7-18)
[2020-10-23 11:51] LABS: HEMOGLOBIN 6.3 g/dL (13.5-17.5)
[2020-10-23] MEDS ORDERED: hydrALAZINE HCL 25 MG TABLET PO PRN (12:00)
[2020-10-23] MEDS ORDERED: ACETAMINOPHEN 325 MG TABLET PO PRN (12:00)
[2020-10-23] MEDS ORDERED: MAGNESIUM HYDROXIDE 30 ML UDC PO PRN (12:00)
[2020-10-23] MEDS ORDERED: BISACODYL SUPP (10 MG) 10 MG/SUPP.RECT SUPP.RECT RC PRN (12:00)
--- NOTE | 2020-10-23 12:14 | NUR ---
covid swab done and sent to the lab
[2020-10-23 12:18] LABS: C-REACTIVE PROTEIN 15.8 mg/dL (0.0-0.9)
--- NOTE | 2020-10-23 13:30 | NUR ---
Dina velásquez in [facility] - 10/23/20 at 1331 by ROXANNE NURSING SUP GAVE [facility] BED 101.
--- NOTE | 2020-10-23 13:30 | NUR ---
NURSING SUP GAVE M/S BED 101.
[2020-10-23] MEDS ORDERED: ESCI5TAB PO (13:59)
[2020-10-23] MEDS ORDERED: RISP0.5T5 PO (13:59)
[2020-10-23] MEDS ORDERED: MELA3TAB41 PO (13:59)
[2020-10-23] MEDS ORDERED: CRAN425C6 PO (13:59)
[2020-10-23] MEDS ORDERED: CYCL30DR OP (13:59)
[2020-10-23] MEDS ORDERED: ACET325T53 PO (13:59)
[2020-10-23] MEDS ORDERED: KRIL1CAP PO (13:59)
[2020-10-23] MEDS ORDERED: ATOR20TA PO (13:59)
[2020-10-23 15:30] LABS: BAND % (MANUAL) 1 % (0.0-5.0); LYMPHOCYTES % (MANUAL) 11 % (16-48); MONOCYTES % (MANUAL) 6 % (0-11.0); NEUTROPHILS % (MANUAL) 82 (42-76)
--- NOTE | 2020-10-23 16:25 | NUR ---
report given to nurse tapia
--- NOTE | 2020-10-23 17:00 | NUR ---
ADMITTING NOTES RECEIVED PATIENT VIA GURNEY FROM ER, MED SURG STATUS, A/OX3, ON ROOM AIR, NO SOB, IV LINE NOT FLUSHING, INFILTRATED, BED REST, WOUND NOTED ON L HEEL, PICTURES TAKEN AND PLACED IN CHART, SAFETY MEASURES IN PLACE, BED LOCKED IN LOWEST POSITION, WILL CONT TO MONITOR
--- NOTE | 2020-10-23 17:04 | NUR ---
THE PATIENT IS TRANSFERED TO ASSIGNED ROOM PER POLICY.
[2020-10-23] MEDS: METFORMIN 500 MG TABLET PO SCH (17:34)
[2020-10-23] MEDS: FERROUS SULFATE (325 MG) 325 MG/TAB TABLET PO SCH (17:34)
[2020-10-23 18:12] LABS: HEMOGLOBIN 6.3 g/dL (13.5-17.5)
--- NOTE | 2020-10-23 19:30 | NUR ---
MS RN NOTE RECEIVED PATIENT ON ISOLATION RO R/O COVID. PATIENT IN BED. A/OX3. TOLERATING ROOM AIR. RESPIRATIONS ARE EVEN AND UNLABORED. NO S/S SOB NOTED. NO C/O PAIN AT THIS TIME. IN NO APPARENT DISTRESS. ORDER FOR MIDLINE TO BE INSERTED. BED IS LOW AND LOCKED, HOB ELEVATED IN SEMI FOWLERS, SIDE RIALS UP X2, CALL LIGHT WITHIN REACH. WILL CONTINUE TO MONITOR.
--- NOTE | 2020-10-23 20:30 | NUR ---
MS RN NOTE LAB CALLED TO INFORM BLOOD IS READY. OBTAINED CONSENT FOR BLOOD TRANSFUSION, PLACED IN CHART.
--- NOTE | 2020-10-23 20:49 | NUR ---
MS RN NOTE INFORMED DR. RODGERS PATIENT TEMP IS 99.5 BEFORE BLOOD TRANSFUSION. MD TELEPHONE ORDER PRE-MEDICATE WITH TYLENOL 650MG AND BENADRYL 25MG PO. ORDERS READ BACK NOTED AND CARRIED OUT.
[2020-10-23] MEDS: ACETAMINOPHEN 325 MG TABLET PO PRN (20:59)
[2020-10-23] MEDS ORDERED: diphenhydrAMINE HCL 25 MG CAPSULE PO ONE (21:00)
[2020-10-23] MEDS: ENOXAPARIN SODIUM 40 MG/0.4 ML DISP.SYRIN SQ SCH (21:00)
--- NOTE | 2020-10-23 21:00 | NUR ---
MS RN NOTE DID NOT ADMINISTER LOVENOX 40MG D/T LOW H/H 6.3.
[2020-10-23] MEDS: ZOSYN IVPB 2.25 G in IV D5W 50ml IV SCH (21:11)
[2020-10-23] MEDS: MAGNESIUM OXIDE 400 MG TABLET PO SCH (21:17)
[2020-10-23] MEDS: TAMSULOSIN 0.4 MG CAP.SR.24H PO SCH (21:17)
[2020-10-23] MEDS: IV NS 0.9% 1,000 ML IV PRN (21:44)
--- NOTE | 2020-10-23 21:55 | NUR ---
MS RN NOTE ABOUT TO BEGIN BLOOD TRANSFUSION. PATIENT REFUSED TO HAVE VITAL SIGNS TAKEN ON THE ARM SO THE BP WAS TAKEN ON PATIENTS RIGHT LEG. INFORMED PATIENT TO LET ME KNOW OR PRESS CALL LIGHT IF FELT ANY ADVERSE REACTION SUCH BACK PAIN, SWEATING, SOB.
[2020-10-23] MEDS: TRAZODONE 50 MG TABLET PO SCH (22:57)
[2020-10-24] MEDS ORDERED: ZOSYN IVPB 3.375 G in IV D5W 50ml IV SCH
[2020-10-24 00:34] VITALS: BP 161/72
[2020-10-24] MEDS: ZOSYN IVPB 2.25 G in IV D5W 50ml IV SCH ×4 (01:00→20:23)
[2020-10-24 04:00] VITALS: BP 178/77
[2020-10-24] MEDS: VANCOMYCIN 0.75 GM in IV D5W 250 ML IV SCH ×2 (05:08→23:23)
[2020-10-24 06:24] VITALS: BP 115/69
--- NOTE | 2020-10-24 06:30 | NUR ---
MS RN NOTE REMAINS ON ISOLATION RO R/O COVID. RESTING IN BED. A/OX3. REMAINS TOLERATING ROOM AIR.NO RESP DISTRESS. NO C/O PAIN. NO DISTRESS. IV ACCESS IN LILIBETH MIDLINE RUNNING NS@75ML/HR. ADMINISTERED 1 UNIT PRBC THIS SHIFT WITH NO ADVERSE REACTION. BED REMAINS LOW AND LOCKED, HOB ELEVATED IN SEMI FOWLERS, SIDE RIALS UP X2, CALL LIGHT WITHIN REACH. WILL ENDORSE TO ONCOMING SHIFT.
[2020-10-24 06:51] LABS: CALCIUM, SERUM 7.7 mg/dL (8.5-10.1); CARBON DIOXIDE 23 mmol/L (21-32); CHLORIDE 107 mmol/L (98-107); CREATININE 1.8 mg/dL (0.6-1.3); GLUCOSE 138 mg/dL (74-106); POTASSIUM 4.5 mmol/L (3.5-5.1); SODIUM SERUM 139 mmol/L (136-145); UREA NITROGEN, BLOOD 42 mg/dL (7-18)
[2020-10-24] MEDS: BLOOD SUGAR DIAGNOSTIC 1 EACH STRIP IN SCH (07:34)
[2020-10-24] MEDS: PANTOPRAZOLE 40 MG TABLET.DR PO SCH (07:38)
--- NOTE | 2020-10-24 07:45 | NUR ---
RN NOTE PATIENT IS IN BED WITH HOB AT SEMI FOWLERS POSITION. PATIENT IS ON ROOM AIR WITH NO SIGNS OF LABORED BREATHING. PATIENT IS AOX3. LILIBETH MIDLINE IS PATENT AND INTACT. BED IS LOCKED IN THE LOWEST POSITION, 3 GUARD RAILS RAISED, CALL PEREA WITHIN REACH, AND ALL HOSPITAL SAFETY PRECAUTIONS ARE BEING FOLLOWED. WILL CONTINUE TO MONITOR THROUGHOUT SHIFT.
[2020-10-24] MEDS: ASPIRIN 81 MG TAB.CHEW PO SCH (08:04)
[2020-10-24] MEDS: ASCORBIC ACID 500 MG TABLET PO SCH (08:04)
[2020-10-24] MEDS: AMLODIPINE BESYLATE 10 MG TABLET PO SCH (08:04)
[2020-10-24] MEDS: ZINC SULFATE 220 MG CAPSULE PO SCH (08:04)
[2020-10-24] MEDS: LISINOPRIL (20MG) 20 MG TABLET PO SCH (08:04)
[2020-10-24] MEDS: DOCUSATE SODIUM 100 MG CAPSULE PO SCH (08:04)
[2020-10-24] MEDS: FERROUS SULFATE (325 MG) 325 MG/TAB TABLET PO SCH ×2 (08:04→16:23)
[2020-10-24] MEDS: METFORMIN 500 MG TABLET PO SCH ×2 (08:05→16:23)
--- NOTE | 2020-10-24 09:00 | NUR ---
was notified re; hgb 6.3 hct 21 and orders given will give 2 units prbc when ready
[2020-10-24 10:28] LABS: BASOPHILS # (AUTO) 0.1 /CMM (0.0-0.2); BASOPHILS % (AUTO) 0.6 % (0.0-2.0); EOSINOPHILS % (AUTO) 1.2 % (0.0-6.0); HEMATOCRIT 22 % (39-51); HEMOGLOBIN 7.1 g/dL (13.5-17.5); LYMPHOCYTES # (AUTO) 1.4 /CMM (0.8-4.8); LYMPHOCYTES % (AUTO) 14.5 % (20.0-44.0); MEAN CORPUSCULAR HGB CONC 32 g/dl (31.0-36.0); MEAN CORPUSCULAR VOLUME 85 fL (80-96); MONOCYTES # (AUTO) 0.8 /CMM (0.1-1.30); MONOCYTES % (AUTO) 8.3 % (2.0-12.0); NEUTROPHILS # (AUTO) 7.1 /CMM (1.8-8.9); NEUTROPHILS % (AUTO) 75.4 % (43.0-81.0); PLATELET COUNT (AUTO) 144 /CMM (150-450); RED BLOOD CELL COUNT(AUTO) 2.63 MIL/uL (4.5-6.0); WHITE BLOOD COUNT (AUTO) 9.5 K/uL (4.3-11.0)
[2020-10-24] MEDS ORDERED: LORAZEPAM INJ 2 MG/ML VIAL IV PRN (11:30)
--- NOTE | 2020-10-24 11:30 | NUR ---
RN NOTE DR. RODGERS NOTIFIED OF HGB OF 7.1. OKAY TO HOLD OFF ON INFUSING RBC TODAY.
[2020-10-24 12:00] VITALS: BP 124/68
--- NOTE | 2020-10-24 14:00 | NUR ---
RN NOTE PATIENT REFUSED URINE COLLECTION VIA CLEAN CATCH.
[2020-10-24] MEDS: IV NS 0.9% 1,000 ML IV PRN (18:43)
--- NOTE | 2020-10-24 19:18 | NUR ---
RN NOTE PATIENT IS IN BED WITH HOB AT SEMI FOWLERS POSITION. PATIENT IS ON ROOM AIR WITH NO SIGNS OF LABORED BREATHING. PATIENT IS AOX3. LILIBETH MIDLINE IS PATENT AND INTACT. BED IS LOCKED IN THE LOWEST POSITION, 3 GUARD RAILS RAISED, CALL PEREA WITHIN REACH, AND ALL HOSPITAL SAFETY PRECAUTIONS ARE BEING FOLLOWED. ALL DUE MEDS GIVEN AND PATIENT REMAINED STABLE THROUGHOUT SHIFT. WILL ENDORSE TO PATIENT EXPERIENCE COORDINATOR RN.
[2020-10-24 20:00] VITALS: BP 135/67
[2020-10-24] MEDS: ENOXAPARIN SODIUM 40 MG/0.4 ML DISP.SYRIN SQ SCH (20:24)
--- NOTE | 2020-10-24 20:24 | NUR ---
RN NOTE DID NOT ADMINISTER LOVENOX 40MG D/T PATIENT H/H LOW. 7.06/14.
--- NOTE | 2020-10-24 20:49 | NUR ---
RN NOTE INFORMED DR. RODGERS THAT PATIENT HAS URINE STUDIES AND IS INCONTINENT. PATIENT STATED HE WOULD LIKE TO BE STRAIGHT CATHED. MD TELEPHONE ORDER OK TO STRAIGHT CATH. ORDER READ BACK, NOTED AND CARRIED OUT.
[2020-10-24] MEDS: TAMSULOSIN 0.4 MG CAP.SR.24H PO SCH (21:52)
[2020-10-24] MEDS: ACETAMINOPHEN 325 MG TABLET PO PRN (21:52)
[2020-10-24] MEDS: TRAZODONE 50 MG TABLET PO SCH (21:52)
[2020-10-24] MEDS: MAGNESIUM OXIDE 400 MG TABLET PO SCH (21:52)
[2020-10-25] VITALS (8 sets, daily range): BP systolic 102–140; BP diastolic 53–74
[2020-10-25] MEDS: ZOSYN IVPB 2.25 G in IV D5W 50ml IV SCH ×4 (01:14→20:16)
[2020-10-25 02:28] LABS: BILIRUBIN,URINE NEGATIVE (NEGATIVE); COLOR,URINE YELLOW (YELLOW); LEUKOCYTE ESTERASE ,URINE MODERATE (NEGATIVE); NITRITE, URINE NEGATIVE (NEGATIVE); PH,URINE 5.5 (5.0-8.0); PROTEIN,URINE NEGATIVE (NEGATIVE); UGLUCOSE NEGATIVE (NEGATIVE); UROBILINOGEN,URINE 0.2 EU/dL (0.2)
[2020-10-25 02:41] LABS: CREATININE, URINE 88.8 MG/DL (30.0-125.0)
[2020-10-25 02:45] LABS: BACTERIA,URINE Rare /HPF (None Seen); SQUAMOUS EPITHELIAL CELL,UR None Seen /HPF (None Seen)
[2020-10-25 02:46] LABS: URIC ACID CRYSTALS,URINE Many /HPF (None Seen)
[2020-10-25 03:19] LABS: EOSINOPHIL,URINE None Seen
--- NOTE | 2020-10-25 04:23 | NUR ---
MS RN NOTE RECEIVED PATIENT ON ISOLATION TO R/O COVID 19. PATIENT IN BED. A/OX3. TOLERATING ROOM AIR. RESPIRATIONS ARE EVEN AND UNLABORED. NO S/S SOB NOTED. NO C/O PAIN AT THIS TIME. IN NO APPARENT DISTRESS. IV ACCESS LILIBETH MIDLINE RUNNING NS@75ML/HR. BED IS LOW AND LOCKED, HOB ELEVATED IN SEMI FOWLERS, SIDE RIALS UP X2, CALL LIGHT WITHIN REACH. WILL CONTINUE TO MONITOR THROUGHOUT SHIFT. Addendum: 10/25/20 at 0625 by RAUL BERGMAN RN date for this note is 10/24/20 at 1930 - opening note to shift
[2020-10-25] MEDS: ACETAMINOPHEN 325 MG TABLET PO PRN (04:47)
--- NOTE | 2020-10-25 06:25 | NUR ---
MS RN NOTE PATIENT IS NEGATIVE FOR COVID19. PATIENT IS RESTING IN BED. A/OX3. NO RESP DISTRESS. NO PAIN. TYLENOL GIVEN THROUGHOUT SHIFT TO MANAGE TEMPERATURE. NO DISTRESS. IV ACCESS MAINTAINED IN LILIBETH MIDLINE RUNNING NS@75ML/HR. BED REMAINS LOW AND LOCKED, HOB ELEVATED IN SEMI FOWLERS, SIDE RIALS UP X2, CALL LIGHT WITHIN REACH. WILL ENDORSE TO COMING SHIFT.
[2020-10-25 06:40] LABS: BASOPHILS # (AUTO) 0.1 /CMM (0.0-0.2); BASOPHILS % (AUTO) 0.7 % (0.0-2.0); EOSINOPHILS % (AUTO) 1.1 % (0.0-6.0); HEMATOCRIT 22 % (39-51); LYMPHOCYTES # (AUTO) 1.3 /CMM (0.8-4.8); LYMPHOCYTES % (AUTO) 13.5 % (20.0-44.0); MEAN CORPUSCULAR HGB CONC 32 g/dl (31.0-36.0); MEAN CORPUSCULAR VOLUME 84 fL (80-96); MONOCYTES # (AUTO) 0.8 /CMM (0.1-1.30); MONOCYTES % (AUTO) 8.4 % (2.0-12.0); NEUTROPHILS # (AUTO) 7.6 /CMM (1.8-8.9); NEUTROPHILS % (AUTO) 76.3 % (43.0-81.0); PLATELET COUNT (AUTO) 131 /CMM (150-450); RED BLOOD CELL COUNT(AUTO) 2.61 MIL/uL (4.5-6.0); WHITE BLOOD COUNT (AUTO) 9.9 K/uL (4.3-11.0)
[2020-10-25 06:49] LABS: ALANINE AMINOTRANSFERASE 20 U/L (12-78); ALBUMIN 1.8 g/dL (3.4-5.0); ALKALINE PHOSPHATASE 76 U/L (46-116); ASPARTATE AMINOTRANSFERASE 21 U/L (15-37); BILIRUBIN,TOTAL 0.5 mg/dL (0.2-1.0); CALCIUM, SERUM 7.9 mg/dL (8.5-10.1); CARBON DIOXIDE 22 mmol/L (21-32); CHLORIDE 108 mmol/L (98-107); CREATININE 1.8 mg/dL (0.6-1.3); GLUCOSE 86 mg/dL (74-106); MAGNESIUM 2.4 mg/dL (1.8-2.4); PHOSPHORUS 2.7 mg/dL (2.5-4.9); SODIUM SERUM 136 mmol/L (136-145); TOTAL PROTEIN, SERUM 6.1 g/dL (6.4-8.2); UREA NITROGEN, BLOOD 37 mg/dL (7-18)
--- NOTE | 2020-10-25 07:30 | NUR ---
RN OPENING NOTE PT AWAKE IN BED. A/O X3 AND SAUDI ARABIAN SPEAKING. NO COMPLAINT OF PAIN OR NAUSEA AT THE TIME. CURRENTLY ON RA WITH NO SOB OR RESPIRATORY DISTRESS PRESENT. NO EDEMA PRESENT. PT IS ON BEDREST WITH DIAPER PRESENT. R ARM IS CONTRACTED. L HEEL WOUND PRESENT AND WOUND CARE APPLIED. FALL RISK PRECAUTIONS. MIDLINE PRESENT ON LILIBETH AND FLUSHES WELL. SAFETY MEASURES IN PLACE. SIDE RAILS RAISED. BED LOWERED. CALL LIGHT WITHIN REACH. WILL CONTINUE TO MONITOR.
[2020-10-25] MEDS: BLOOD SUGAR DIAGNOSTIC 1 EACH STRIP IN SCH (07:43)
--- NOTE | 2020-10-25 07:44 | NUR ---
RN NOTE RECEIVED CRITICAL LAB VALUE FROM LAB OF HGB 7.0/ MD NOTIFIED. ORDER OF 1U PRBC TO BE TRANSFUSED. WILL CONTINUE TO MONITOR.
[2020-10-25] MEDS: DOCUSATE SODIUM 100 MG CAPSULE PO SCH (08:40)
[2020-10-25] MEDS: ASPIRIN 81 MG TAB.CHEW PO SCH (08:40)
[2020-10-25] MEDS: FERROUS SULFATE (325 MG) 325 MG/TAB TABLET PO SCH ×2 (08:40→17:23)
[2020-10-25] MEDS: AMLODIPINE BESYLATE 10 MG TABLET PO SCH (08:41)
[2020-10-25] MEDS: ZINC SULFATE 220 MG CAPSULE PO SCH (08:41)
[2020-10-25] MEDS: METFORMIN 500 MG TABLET PO SCH ×2 (08:41→17:23)
[2020-10-25] MEDS: PANTOPRAZOLE 40 MG TABLET.DR PO SCH (08:41)
[2020-10-25] MEDS: LISINOPRIL (20MG) 20 MG TABLET PO SCH (08:41)
[2020-10-25] MEDS: ASCORBIC ACID 500 MG TABLET PO SCH (08:41)
--- NOTE | 2020-10-25 08:49 | NUR ---
WOUND CARE CONSULT: PT PRESENTS WITH MULTIPLE AREAS OF SKIN DISCOLORATION AND SCARRING INCLUDING SACRUM AND RT HEEL, PRESENT ON ADMISSION. PT IS FOLLOWED BY CASHIER GREETER FOR LEFT FOOT WOUND, PRESENT ON ADMISSION. RECOMMENDATIONS MADE FOR SKIN PROTECTION. DISCUSSED WITH NURSING STAFF. MD IN AGREEMENT WITH PLAN OF CARE.
[2020-10-25] MEDS ORDERED: Z GUARD REMEDY 2 OZ OINT TP PRN (09:00)
[2020-10-25] MEDS: DAKINS QUARTER STRENGTH (0.125%) 480 ML BOTTLE TOP SCH (09:37)
[2020-10-25] MEDS: Z GUARD REMEDY 2 OZ OINT TP SCH (09:37)
--- NOTE | 2020-10-25 10:19 | NUR ---
RN NOTE PT 1 UNIT OF PRBC TRANSFUSION STARTED. PRE TRANSFUSION VITALS CHECKED. WILL CONTINUE TO MONITOR.
--- NOTE | 2020-10-25 14:18 | NUR ---
RN NOTE PT FINISHED TRANSFUSION ON 1U ON PRBC. NO SIGNS OF ADVERSE REACTION. V/S WNL. SAFETY MEASURES IN PLACE. WILL CONTINUE TO MONITOR.
[2020-10-25] MEDS: IV NS 0.9% 1,000 ML IV PRN (17:23)
--- NOTE | 2020-10-25 20:00 | NUR ---
MS RN NOTE RECEIVED PATIENT IN BED. A/OX3. DAY RN REPORTED DELUSIONS, NONE AT THIS TIME. TOLERATING ROOM AIR. RESPIRATIONS ARE EVEN AND UNLABORED. NO S/S SOB NOTED. NO C/O PAIN AT THIS TIME. IN NO APPARENT DISTRESS. IV ACCESS LILIBETH MIDLINE RUNNING NS@75ML/HR. BED IS LOW AND LOCKED, HOB ELEVATED IN SEMI FOWLERS, SIDE RIALS UP X2, CALL LIGHT WITHIN REACH. WILL CONTINUE TO MONITOR THROUGHOUT SHIFT.
[2020-10-25] MEDS: ENOXAPARIN SODIUM 40 MG/0.4 ML DISP.SYRIN SQ SCH (20:16)
--- NOTE | 2020-10-25 20:16 | NUR ---
RN NOTE DID NOT ADMINISTER LOVEOX 40MG D/T PATIENT H/H LOW 12/12.
[2020-10-25] MEDS: TRAZODONE 50 MG TABLET PO SCH (21:39)
[2020-10-25] MEDS: MAGNESIUM OXIDE 400 MG TABLET PO SCH (21:39)
[2020-10-25] MEDS: TAMSULOSIN 0.4 MG CAP.SR.24H PO SCH (21:40)
[2020-10-25] MEDS: VANCOMYCIN 0.75 GM in IV D5W 250 ML IV SCH (22:53)
[2020-10-26] MEDS: ZOSYN IVPB 2.25 G in IV D5W 50ml IV SCH ×4 (01:01→20:31)
[2020-10-26 04:00] VITALS: BP 123/66
[2020-10-26 06:07] LABS: BASOPHILS # (AUTO) 0.1 /CMM (0.0-0.2); BASOPHILS % (AUTO) 0.6 % (0.0-2.0); EOSINOPHILS % (AUTO) 1.3 % (0.0-6.0); HEMATOCRIT 23 % (39-51); HEMOGLOBIN 7.6 g/dL (13.5-17.5); LYMPHOCYTES # (AUTO) 1.4 /CMM (0.8-4.8); MEAN CORPUSCULAR HGB CONC 32 g/dl (31.0-36.0); MEAN CORPUSCULAR VOLUME 83 fL (80-96); MONOCYTES # (AUTO) 0.8 /CMM (0.1-1.30); MONOCYTES % (AUTO) 7.6 % (2.0-12.0); NEUTROPHILS # (AUTO) 8.4 /CMM (1.8-8.9); NEUTROPHILS % (AUTO) 77.5 % (43.0-81.0); PLATELET COUNT (AUTO) 126 /CMM (150-450); RED BLOOD CELL COUNT(AUTO) 2.82 MIL/uL (4.5-6.0); WHITE BLOOD COUNT (AUTO) 10.8 K/uL (4.3-11.0)
[2020-10-26 06:08] LABS: CALCIUM, SERUM 7.7 mg/dL (8.5-10.1); CARBON DIOXIDE 20 mmol/L (21-32); CHLORIDE 107 mmol/L (98-107); CREATININE 1.7 mg/dL (0.6-1.3); GLUCOSE 80 mg/dL (74-106); POTASSIUM 3.8 mmol/L (3.5-5.1); SODIUM SERUM 138 mmol/L (136-145); UREA NITROGEN, BLOOD 35 mg/dL (7-18)
--- NOTE | 2020-10-26 06:15 | NUR ---
MS RN NOTE PATIENT RESTING IN BED. A/OX2-3. NO DELUSIONS THROUGHOUT SHIFT. REMAINS TOLERATING ROOM AIR. NO RESP DISTRESS. NO PAIN. NO DISTRESS. ALL NEEDS MET. IV ACCESS LILIBETH MIDLINE RUNNING NS@75ML/HR. BED REMAINS LOW AND LOCKED, HOB ELEVATED IN SEMI FOWLERS, SIDE RIALS UP X2, CALL LIGHT WITHIN REACH. WOUND CARE PROVIDED. WILL ENDORSE TO ONCOMING SHIFT.
--- NOTE | 2020-10-26 07:30 | NUR ---
MS RN AM NOTE PT AWAKE IN BED. A/O X3, ABLE TO EXPRESS SELF, CURRENTLY ON RA WITH NO SOB OR RESPIRATORY DISTRESS PRESENT. RESPIRATION UNLABORED. NO COMPLAINT OF PAIN OR NAUSEA AT THE TIME. MIDLINE PRESENT ON LILIBETH AND FLUSHES WELL. ONGOING IVF AT 75 ML/HR. SITE CLEAR. SOFT DIET. ASSIST IN FEEDING. NO EDEMA PRESENT. PT IS ON BEDREST WITH DIAPER PRESENT. R ARM IS CONTRACTED. L HEEL WOUND PRESENT AND WOUND CARE APPLIED. FALL RISK PRECAUTIONS. SAFETY MEASURES IN PLACE. SIDE RAILS RAISED. BED LOWERED. CALL LIGHT WITHIN REACH. WILL CONTINUE TO MONITOR.
[2020-10-26 08:00] VITALS: BP 128/68
[2020-10-26] MEDS: BLOOD SUGAR DIAGNOSTIC 1 EACH STRIP IN SCH (08:08)
[2020-10-26] MEDS: FERROUS SULFATE (325 MG) 325 MG/TAB TABLET PO SCH ×2 (08:20→16:41)
[2020-10-26] MEDS: METFORMIN 500 MG TABLET PO SCH ×2 (08:20→16:41)
[2020-10-26] MEDS: ZINC SULFATE 220 MG CAPSULE PO SCH (08:20)
[2020-10-26] MEDS: DOCUSATE SODIUM 100 MG CAPSULE PO SCH (08:20)
[2020-10-26] MEDS: ASCORBIC ACID 500 MG TABLET PO SCH (08:20)
[2020-10-26] MEDS: PANTOPRAZOLE 40 MG TABLET.DR PO SCH (08:20)
[2020-10-26] MEDS: LISINOPRIL (20MG) 20 MG TABLET PO SCH (08:21)
[2020-10-26] MEDS: AMLODIPINE BESYLATE 10 MG TABLET PO SCH (08:21)
[2020-10-26] MEDS: DAKINS QUARTER STRENGTH (0.125%) 480 ML BOTTLE TOP SCH (08:25)
[2020-10-26] MEDS: ASPIRIN 81 MG TAB.CHEW PO SCH (08:25)
[2020-10-26] MEDS: Z GUARD REMEDY 2 OZ OINT TP SCH (08:26)
--- NOTE | 2020-10-26 09:30 | NUR ---
RN NOTES DUE MEDS GIVEN
[2020-10-26] MEDS: IV NS 0.9% 1,000 ML IV PRN (11:27)
[2020-10-26] MEDS ORDERED: CT SWABBABLE VALVE TRANS SET 1 EA INFUS.SET MC ONE (14:25)
[2020-10-26] MEDS ORDERED: IV NS 0.9% 250 ML IV ONE (14:25)
[2020-10-26] MEDS ORDERED: IOHEXOL-350 100 ML VIAL IV ONE (14:25)
[2020-10-26 16:00] VITALS: BP 119/68
--- NOTE | 2020-10-26 18:25 | NUR ---
MS RN CLOSING NOTE PT RESTING COMFORTABLY IN BED. A/O X3, ON RA WITH NO SOB OR RESPIRATORY DISTRESS, RESPIRATION UNLABORED. DENIES PAIN, MIDLINE PRESENT ON LILIBETH AND FLUSHES WELL. ONGOING IVF AT 75 ML/HR. SITE CLEAR. SOFT DIET. ASSIST IN FEEDING. USES DIAPER. R ARM IS CONTRACTED. L HEEL WOUND PRESENT AND CDI DRESSING. SAFETY MEASURES IN PLACE. SIDE RAILS RAISED. BED LOWERED. CALL LIGHT WITHIN REACH. PM CARE DONE EARLIER. ALL NEEDS MET. NO OTHER SIGNIFICANT CHANGE IN CONDITION. WILL ENDORSE TO NEXT SHIFT FOR KINZA.
[2020-10-26 20:00] VITALS: BP 117/68
[2020-10-26] MEDS: MAGNESIUM OXIDE 400 MG TABLET PO SCH (20:37)
[2020-10-26] MEDS: ENOXAPARIN SODIUM 40 MG/0.4 ML DISP.SYRIN SQ SCH (20:39)
[2020-10-26] MEDS: TAMSULOSIN 0.4 MG CAP.SR.24H PO SCH (21:11)
[2020-10-26] MEDS: TRAZODONE 50 MG TABLET PO SCH (21:11)
[2020-10-26] MEDS: VANCOMYCIN 0.75 GM in IV D5W 250 ML IV SCH (23:12)
[2020-10-27] MEDS: ZOSYN IVPB 2.25 G in IV D5W 50ml IV SCH ×3 (02:10→13:00)
--- NOTE | 2020-10-27 03:50 | NUR ---
RN notes In bed resting comfortably with no distress noted. Breathing even and unlabored. On room air, tolerating well. Alert with confusion. No complaint of pain or discomfort. No significant change of condition. Vital signs wnl. Kept clean and dry. Will endorse to next shift for continuity of care.
[2020-10-27 04:00] VITALS: BP 116/68
[2020-10-27 06:15] LABS: BASOPHILS # (AUTO) 0.1 /CMM (0.0-0.2); BASOPHILS % (AUTO) 0.6 % (0.0-2.0); HEMATOCRIT 25 % (39-51); LYMPHOCYTES # (AUTO) 1.2 /CMM (0.8-4.8); LYMPHOCYTES % (AUTO) 12.1 % (20.0-44.0); MEAN CORPUSCULAR HGB CONC 33 g/dl (31.0-36.0); MEAN CORPUSCULAR VOLUME 83 fL (80-96); MONOCYTES # (AUTO) 0.6 /CMM (0.1-1.30); MONOCYTES % (AUTO) 6.7 % (2.0-12.0); NEUTROPHILS # (AUTO) 7.6 /CMM (1.8-8.9); NEUTROPHILS % (AUTO) 78.6 % (43.0-81.0); PLATELET COUNT (AUTO) 125 /CMM (150-450); RED BLOOD CELL COUNT(AUTO) 2.96 MIL/uL (4.5-6.0); WHITE BLOOD COUNT (AUTO) 9.7 K/uL (4.3-11.0)
[2020-10-27] MEDS: IV NS 0.9% 1,000 ML IV PRN ×2 (06:31→20:14)
[2020-10-27 07:07] LABS: CALCIUM, SERUM 7.5 mg/dL (8.5-10.1); CARBON DIOXIDE 19 mmol/L (21-32); CHLORIDE 108 mmol/L (98-107); CREATININE 2.1 mg/dL (0.6-1.3); GLUCOSE 108 mg/dL (74-106); MAGNESIUM 2.2 mg/dL (1.8-2.4); POTASSIUM 3.8 mmol/L (3.5-5.1); SODIUM SERUM 139 mmol/L (136-145); UREA NITROGEN, BLOOD 35 mg/dL (7-18)
[2020-10-27] MEDS: BLOOD SUGAR DIAGNOSTIC 1 EACH STRIP IN SCH (07:41)
[2020-10-27] MEDS: PANTOPRAZOLE 40 MG TABLET.DR PO SCH (07:42)
[2020-10-27] MEDS: DOCUSATE SODIUM 100 MG CAPSULE PO SCH (09:09)
[2020-10-27] MEDS: ASPIRIN 81 MG TAB.CHEW PO SCH (09:10)
[2020-10-27] MEDS: ASCORBIC ACID 500 MG TABLET PO SCH (09:10)
[2020-10-27] MEDS: ZINC SULFATE 220 MG CAPSULE PO SCH (09:10)
[2020-10-27] MEDS: AMLODIPINE BESYLATE 10 MG TABLET PO SCH (09:10)
[2020-10-27] MEDS: FERROUS SULFATE (325 MG) 325 MG/TAB TABLET PO SCH ×3 (09:10→16:22)
[2020-10-27] MEDS: METFORMIN 500 MG TABLET PO SCH ×3 (09:10→16:22)
[2020-10-27] MEDS: Z GUARD REMEDY 2 OZ OINT TP SCH (09:12)
[2020-10-27] MEDS: DAKINS QUARTER STRENGTH (0.125%) 480 ML BOTTLE TOP SCH (09:12)
--- NOTE | 2020-10-27 11:18 | NUR ---
Patient gown and linen change after vomiting episode. Daren Lam RN
[2020-10-27] MEDS: LISINOPRIL (20MG) 20 MG TABLET PO SCH (11:31)
[2020-10-27] MEDS: ONDANSETRON 4 MG TAB.RAPDIS PO PRN ×2 (11:32→16:19)
[2020-10-27 16:00] VITALS: BP 125/69
--- NOTE | 2020-10-27 19:30 | NUR ---
MS RN NOTE RECEIVED PATIENT IN BED. A/OX3. TOLERATING ROOM AIR. RESPIRATIONS ARE EVEN AND UNLABORED. NO S/S SOB NOTED. NO C/O PAIN AT THIS TIME. IN NO APPARENT DISTRESS. IV ACCESS LILIBETH MIDLINE RUNNING NS@75ML/HR. BED IS LOW AND LOCKED, HOB ELEVATED IN SEMI FOWLERS, SIDE RIALS UP X2, CALL LIGHT WITHIN REACH. INFORMED PATIENT I WILL BE TAKEN PHOTOS OF HIS WOUNDS PER OUR PROTOCOL, PATIENT AGREED. WILL CONTINUE TO MONITOR THROUGHOUT SHIFT.
[2020-10-27 20:00] VITALS: BP 121/66
[2020-10-27] MEDS: AMPICILLIN SODIUM 2 GM in IV NS 0.9% 100 ML IV SCH (20:14)
[2020-10-27] MEDS: TAMSULOSIN 0.4 MG CAP.SR.24H PO SCH (21:16)
[2020-10-27] MEDS: TRAZODONE 50 MG TABLET PO SCH (21:16)
[2020-10-27] MEDS: MAGNESIUM OXIDE 400 MG TABLET PO SCH (21:16)
[2020-10-27] MEDS: VANCOMYCIN 0.75 GM in IV D5W 250 ML IV SCH (22:49)
[2020-10-27] MEDS: ENOXAPARIN SODIUM 40 MG/0.4 ML DISP.SYRIN SQ SCH (22:54)
[2020-10-28 04:00] VITALS: BP 123/60
[2020-10-28] MEDS: AMPICILLIN SODIUM 2 GM in IV NS 0.9% 100 ML IV SCH ×2 (04:09→12:46)
[2020-10-28 05:52] LABS: BASOPHILS # (AUTO) 0.1 /CMM (0.0-0.2); BASOPHILS % (AUTO) 0.7 % (0.0-2.0); EOSINOPHILS % (AUTO) 1.1 % (0.0-6.0); HEMATOCRIT 23 % (39-51); HEMOGLOBIN 7.3 g/dL (13.5-17.5); LYMPHOCYTES # (AUTO) 1.3 /CMM (0.8-4.8); LYMPHOCYTES % (AUTO) 14.1 % (20.0-44.0); MEAN CORPUSCULAR HGB CONC 32 g/dl (31.0-36.0); MEAN CORPUSCULAR VOLUME 85 fL (80-96); MONOCYTES # (AUTO) 0.6 /CMM (0.1-1.30); MONOCYTES % (AUTO) 6.9 % (2.0-12.0); NEUTROPHILS # (AUTO) 7.1 /CMM (1.8-8.9); NEUTROPHILS % (AUTO) 77.2 % (43.0-81.0); PLATELET COUNT (AUTO) 117 /CMM (150-450); RED BLOOD CELL COUNT(AUTO) 2.74 MIL/uL (4.5-6.0); WHITE BLOOD COUNT (AUTO) 9.3 K/uL (4.3-11.0)
--- NOTE | 2020-10-28 06:17 | NUR ---
MS RN NOTE RESTING IN BED. A/OX3. REMAINS TOLERATING ROOM AIR. NO RESP DISTRESS. NO C/O PAIN. NO C/O OF NAUSEA. NO DISTRESS. IV ACCESS MAINTAINED LILIBETH MIDLINE RUNNING NS@75ML/HR. BED REMAINS LOW AND LOCKED, HOB ELEVATED IN SEMI FOWLERS, SIDE RIALS UP X2, CALL LIGHT WITHIN REACH. WOUND PCS TAKEN PER PROTOCOL, PLACED IN CHART. WILL ENDORSE TO NEXT SHIFT.
[2020-10-28 06:35] LABS: CALCIUM, SERUM 7.6 mg/dL (8.5-10.1); CARBON DIOXIDE 18 mmol/L (21-32); CHLORIDE 109 mmol/L (98-107); CREATININE 3.1 mg/dL (0.6-1.3); GLUCOSE 72 mg/dL (74-106); MAGNESIUM 2.2 mg/dL (1.8-2.4); SODIUM SERUM 140 mmol/L (136-145); UREA NITROGEN, BLOOD 38 mg/dL (7-18)
[2020-10-28] MEDS: BLOOD SUGAR DIAGNOSTIC 1 EACH STRIP IN SCH (08:16)
[2020-10-28] MEDS: PANTOPRAZOLE 40 MG TABLET.DR PO SCH (08:16)
[2020-10-28] MEDS: ASPIRIN 81 MG TAB.CHEW PO SCH (08:36)
[2020-10-28] MEDS: LISINOPRIL (20MG) 20 MG TABLET PO SCH (08:37)
[2020-10-28] MEDS: METFORMIN 500 MG TABLET PO SCH ×2 (08:37→16:08)
[2020-10-28] MEDS: ZINC SULFATE 220 MG CAPSULE PO SCH (08:38)
[2020-10-28] MEDS: AMLODIPINE BESYLATE 10 MG TABLET PO SCH (08:38)
[2020-10-28] MEDS: DOCUSATE SODIUM 100 MG CAPSULE PO SCH (08:38)
[2020-10-28] MEDS: FERROUS SULFATE (325 MG) 325 MG/TAB TABLET PO SCH ×2 (08:38→16:07)
[2020-10-28] MEDS: ASCORBIC ACID 500 MG TABLET PO SCH (08:38)
[2020-10-28] MEDS: Z GUARD REMEDY 2 OZ OINT TP SCH (08:40)
[2020-10-28] MEDS: DAKINS QUARTER STRENGTH (0.125%) 480 ML BOTTLE TOP SCH (08:40)
[2020-10-28] MEDS: GLUCERNA SHAKE 237 ML CAN PO SCH ×3 (08:52→16:09)
--- NOTE | 2020-10-28 09:30 | NUR ---
RN NOTES DUE MEDS GIVEN
--- NOTE | 2020-10-28 11:16 | NUR ---
RN NOTES SPOKE WITH DR. LAWSON, PER HER, PATIENT STILL HAS ABSCESS COMING OUT FROM HIS LEFT HEEL AND INFECTION IS VERY HARD WITH BONE EXPOSED AND STILL RECOMMENDS BKA, SHE SPOKE WITH PATIENT BUT PATIENT DOES NOT WANT BKA. WILL INFORM DR. RODGERS.
[2020-10-28] MEDS: ONDANSETRON 4 MG TAB.RAPDIS PO PRN ×2 (12:17→21:14)
[2020-10-28] MEDS: IV NS 0.9% 1,000 ML IV PRN (12:43)
[2020-10-28 14:09] VITALS: BP 140/69
[2020-10-28] MEDS: CEFTRIAXONE 1 G in IV D5W 50 ML IV SCH (15:23)
--- NOTE | 2020-10-28 18:52 | NUR ---
MS RN CLOSING NOTE PT RESTING COMFORTABLY IN BED. A/O X3, ON RA WITH NO SOB OR RESPIRATORY DISTRESS, RESPIRATION UNLABORED. DENIES PAIN, MIDLINE PRESENT ON LILIBETH AND FLUSHES WELL. ONGOING IVF AT 75 ML/HR. SITE CLEAR. SOFT DIET. ASSIST IN FEEDING. USES DIAPER. R ARM IS CONTRACTED. L HEEL WOUND PRESENT AND CDI DRESSING. SEEN BY DR. LAWSON EARLIER. SAFETY MEASURES IN PLACE. SIDE RAILS RAISED. BED LOWERED. CALL LIGHT WITHIN REACH. PM CARE DONE EARLIER. ALL NEEDS MET. NO OTHER SIGNIFICANT CHANGE IN CONDITION. WILL ENDORSE TO NEXT SHIFT FOR [facility].
--- NOTE | 2020-10-28 19:30 | NUR ---
MS RN NOTE RECEIVED PATIENT IN BED. A/OX3. TOLERATING ROOM AIR. RESPIRATIONS ARE EVEN AND UNLABORED. NO S/S SOB NOTED. NO C/O PAIN AT THIS TIME. IN NO APPARENT DISTRESS. IV ACCESS LILIBETH MIDLINE RUNNING NS@75ML/HR. BED IS LOW AND LOCKED, HOB ELEVATED IN SEMI FOWLERS, SIDE RIALS UP X2, CALL LIGHT WITHIN REACH. WILL CONTINUE TO MONITOR THROUGHOUT SHIFT.
[2020-10-28 20:00] VITALS: BP 126/63
[2020-10-28] MEDS ORDERED: Sodium Bicarbonate 75 MEQ in IV 1/2NS 1000 ML 1,000 ML IV PRN (20:00)
[2020-10-28] MEDS: TRAZODONE 50 MG TABLET PO SCH (21:05)
[2020-10-28] MEDS: TAMSULOSIN 0.4 MG CAP.SR.24H PO SCH (21:05)
[2020-10-28] MEDS: MAGNESIUM OXIDE 400 MG TABLET PO SCH (21:05)
--- NOTE | 2020-10-28 21:30 | NUR ---
MS RN NOTE INFORMED DR. RODGERS THAT PATIENT HAS SCHEDULE LOVENOX 40MG AND H/H IS 7.3. TELEPHONE ORDER OK TO GIVE.
[2020-10-28] MEDS: ENOXAPARIN SODIUM 40 MG/0.4 ML DISP.SYRIN SQ SCH (21:48)
[2020-10-28] MEDS ORDERED: VANCOMYCIN 0.75 GM in IV D5W 250 ML IV SCH (23:00)
[2020-10-29 04:00] VITALS: BP 139/69
--- NOTE | 2020-10-29 06:25 | NUR ---
MS RN NOTE PATIENT RESTING IN BED. A/OX3. REMAINS TOLERATING ROOM AIR. NO RESP DISTRESS. NO PAIN, PATIENT DID HAVE AN EPISODE OF EMESIS, 200ML, CLEAR, SLIGHTLY YELLOW, RIGHT AFTER MED ADMINISTRATION, NAUSEA MANAGED WITH ZOFRAN. NO DISTRESS. IV ACCESS LILIBETH MIDLINE RUNNING NA BICARB 75MEQ@100ML/HR. BED IS LOW AND LOCKED, HOB ELEVATED IN SEMI FOWLERS, SIDE RIALS UP X2, CALL LIGHT WITHIN REACH. WILL ENDORSE TO ONCOMING SHIFT.
[2020-10-29 06:37] LABS: CALCIUM, SERUM 7.8 mg/dL (8.5-10.1); CARBON DIOXIDE 16 mmol/L (21-32); CHLORIDE 109 mmol/L (98-107); CREATININE 4.1 mg/dL (0.6-1.3); GLUCOSE 65 mg/dL (74-106); SODIUM SERUM 140 mmol/L (136-145); UREA NITROGEN, BLOOD 39 mg/dL (7-18)
[2020-10-29 08:00] VITALS: BP 155/70
[2020-10-29] MEDS: GLUCERNA SHAKE 237 ML CAN PO SCH ×3 (08:00→17:00)
[2020-10-29] MEDS: BLOOD SUGAR DIAGNOSTIC 1 EACH STRIP IN SCH (08:10)
[2020-10-29] MEDS ORDERED: DEXTROSE 50%-WATER 50 ML DISP.SYRIN IVP ONE (08:30)
--- NOTE | 2020-10-29 08:32 | NUR ---
BS 63. OJ GIVEN AND PT HAD TWO EPISODES OF EMESIS. CALLED TO MD AND RECEIVED T.O. FOR ZOFRAN IV, 1/2 AMP D50 AND CHANGE IVF TO D51/2 NS WITH SODIUM BICARB. ORDERS REPEATED BACK AND WILL CARRY OUT.
[2020-10-29] MEDS: ONDANSETRON HCL/PF 4 MG/2 ML VIAL IV PRN ×2 (08:49→17:40)
[2020-10-29] MEDS ORDERED: SODIUM BICARBONATE IV SCH (09:00)
[2020-10-29] MEDS ORDERED: D5 IV SCH (09:00)
[2020-10-29] MEDS: ASPIRIN 81 MG TAB.CHEW PO SCH (09:00)
[2020-10-29] MEDS: DOCUSATE SODIUM 100 MG CAPSULE PO SCH (09:00)
[2020-10-29] MEDS: ASCORBIC ACID 500 MG TABLET PO SCH (09:00)
[2020-10-29] MEDS: LISINOPRIL (20MG) 20 MG TABLET PO SCH (09:00)
[2020-10-29] MEDS: AMLODIPINE BESYLATE 10 MG TABLET PO SCH (09:00)
[2020-10-29] MEDS ORDERED: NACL IV SCH (09:00)
[2020-10-29] MEDS: FERROUS SULFATE (325 MG) 325 MG/TAB TABLET PO SCH ×2 (09:00→17:00)
[2020-10-29] MEDS: ZINC SULFATE 220 MG CAPSULE PO SCH (09:00)
[2020-10-29] MEDS: DAKINS QUARTER STRENGTH (0.125%) 480 ML BOTTLE TOP SCH (09:05)
[2020-10-29] MEDS: Z GUARD REMEDY 2 OZ OINT TP SCH (09:06)
[2020-10-29] MEDS: CEFTRIAXONE 1 G in IV D5W 50 ML IV SCH (15:35)
[2020-10-29 17:07] VITALS: BP 142/71
--- NOTE | 2020-10-29 18:35 | NUR ---
RN CLOSING NOTE Giovany is A/ox3, in no acute distress, VSS on room air. BS resolved from 63 to 132. Had 2 episodes of emesis today, refuse PO meds and refuse meals. MD made aware and given Zofran IV, D50, IVF Nabicarb in d51/2 NS @100mls/hr. Pt denies pain or SOB. Wound care completed as ordered, S/B podiatry and Dr. knott, continues to recommend BKA but pt refuses. Psych consult per MD to evaluate pt's LOC and ability to provide consent. As per pt request, he did not want me to call his sister. Skin protection measures implemented, pt turned and repositioned q2hrs, call light within reach, fall safety and aspiration precautions in place, will endorse to next shift for KINZA.
[2020-10-29 20:00] VITALS: BP 140/71
[2020-10-29] MEDS ORDERED: Sodium Bicarbonate 150 MEQ in IV D5W 1,000 ML IV STA (20:49)
[2020-10-29] MEDS: TRAZODONE 50 MG TABLET PO SCH (21:36)
[2020-10-29] MEDS: TAMSULOSIN 0.4 MG CAP.SR.24H PO SCH (21:36)
[2020-10-29] MEDS: MAGNESIUM OXIDE 400 MG TABLET PO SCH (21:36)
[2020-10-29] MEDS: ENOXAPARIN SODIUM 40 MG/0.4 ML DISP.SYRIN SQ SCH (21:37)
[2020-10-30 04:00] VITALS: BP 119/69
--- NOTE | 2020-10-30 06:01 | NUR ---
MS RN NOTE PT REFUSED MORNING LABS DRAW. ASKED HIM X 3.
[2020-10-30] MEDS: BLOOD SUGAR DIAGNOSTIC 1 EACH STRIP IN SCH (07:49)
[2020-10-30 08:00] VITALS: BP 133/69
[2020-10-30] MEDS: GLUCERNA SHAKE 237 ML CAN PO SCH ×3 (08:24→17:34)
[2020-10-30 09:03] LABS: CALCIUM, SERUM 7.6 mg/dL (8.5-10.1); CARBON DIOXIDE 20 mmol/L (21-32); CREATININE 4.6 mg/dL (0.6-1.3); GLUCOSE 169 mg/dL (74-106); UREA NITROGEN, BLOOD 38 mg/dL (7-18)
[2020-10-30 09:31] LABS: CHLORIDE 106 mmol/L (98-107); POTASSIUM 3.2 mmol/L (3.5-5.1); SODIUM SERUM 137 mmol/L (136-145)
[2020-10-30] MEDS: ASPIRIN 81 MG TAB.CHEW PO SCH (10:04)
[2020-10-30] MEDS: FERROUS SULFATE (325 MG) 325 MG/TAB TABLET PO SCH ×2 (10:04→17:34)
[2020-10-30] MEDS: DOCUSATE SODIUM 100 MG CAPSULE PO SCH (10:04)
[2020-10-30] MEDS: LISINOPRIL (20MG) 20 MG TABLET PO SCH (10:05)
[2020-10-30] MEDS: ASCORBIC ACID 500 MG TABLET PO SCH (10:05)
[2020-10-30] MEDS: AMLODIPINE BESYLATE 10 MG TABLET PO SCH (10:05)
[2020-10-30] MEDS: DAKINS QUARTER STRENGTH (0.125%) 480 ML BOTTLE TOP SCH (10:05)
[2020-10-30] MEDS: ZINC SULFATE 220 MG CAPSULE PO SCH (10:05)
[2020-10-30] MEDS: Z GUARD REMEDY 2 OZ OINT TP SCH (10:06)
[2020-10-30 12:00] VITALS: BP 131/72
--- NOTE | 2020-10-30 14:02 | NUR ---
Wound Care performed dressing change on patient heel. Daren Lam RN
[2020-10-30] MEDS: CEFTRIAXONE 1 G in IV D5W 50 ML IV SCH (15:09)
[2020-10-30 16:00] VITALS: BP 144/76
--- NOTE | 2020-10-30 19:30 | NUR ---
RN OPENING NOTES: RECEIVED PT A/OX3 IN BED RESTING COMFORTABLY. PATIENT IN NO S/SX OF ACUTE DISTRESS AT THIS TIME. NO SOB NOTED. PATIENT'S BREATHING IS EVEN AND UNLABORED. PATIENT IS ON ROOM AIR; TOLERATING WELL WITH 02 SAT OF 95% AT THE TIME OF RECEIVED .PATIENT ON TELE MONITORING READING SINUS RHYTHM HR IS @90S AT THE TIME OF RECEIVED. PATIENT ON SOFT DIET; TOLERATES WELL. NOTED IV SITE ON L UA MIDLINE; PATENT, INTACT AND FLUSHING WELL; NO S/S OF INFECTION OR INFILTRATION. WITH IV FLUID RUNNING ORDERED. SAFETY MEASURES HAVE BEEN PROVIDED AND IMPLEMENTED. PATIENT BED ALARM IS ON. HEAD OF BED ELEVATED. BED IS LOCKED, IN LOWEST POSITION AND SIDE RAILS UP. CALL LIGHT WITHIN REACH OF THE PATIENT. APPLICABLE ISOLATION PRECAUTIONS IN PLACE. WILL CONTINUE TO MONITOR AND REASSESS FOR ANY CHANGES AND WILL CARRY OUT ANY ONGOING AND ACTIVE MD ORDER.
[2020-10-30 20:00] VITALS: BP 143/79
[2020-10-30] MEDS ORDERED: SODIUM BICARBONATE SYR 150 MEQ in IV D5/0.45 NACL 1,000 ML IV SCH (20:30)
--- NOTE | 2020-10-30 20:50 | NUR ---
RN NOTES COMMUNICATED WITH DR. RODGERS REGARDING POTASSIUM LEVEL OF PT THAT WAS NOT COVERED DURING THE MORNING SHIFT, POTASSIUM IS @3.2 RESULT IN THE MORNING. VERIFIED WITH MD IF HE WANTS TO REPLACE AND HE ORDERED POTASSIUM 20MEQ IV. WILL CARRY OUT ORDERED. WOOD TURNER MADE AWARE.
[2020-10-30] MEDS ORDERED: POTASSIUM CL. PREMIX PERIPHER. 50 ML IV SCH (21:00)
[2020-10-30] MEDS ORDERED: risperiDONE 1 MG TABLET PO SCH (21:00)
[2020-10-30] MEDS ORDERED: Sodium Bicarbonate 150 MEQ in IV D5/0.45 NACL 1,000 ML IV SCH (21:00)
[2020-10-30] MEDS ORDERED: Sodium Bicarbonate 100 MEQ in IV D5/0.45 NACL 1,000 ML IV SCH (21:00)
[2020-10-30] MEDS ORDERED: TRAZODONE 50 MG TABLET PO SCH (22:00)
[2020-10-30] MEDS: POTASSIUM CL. PREMIX PERIPHER. 50 ML IV SCH ×2 (22:09→23:19)
[2020-10-30] MEDS: MAGNESIUM OXIDE 400 MG TABLET PO SCH (22:10)
[2020-10-30] MEDS: TAMSULOSIN 0.4 MG CAP.SR.24H PO SCH (22:11)
[2020-10-30] MEDS: HEPARIN SODIUM, PORCINE 5000 UNITS/1 ML VIAL SQ SCH (22:13)
--- NOTE | 2020-10-30 23:00 | NUR ---
RN NOTES NO CHANGE IN PATIENT CONDITION AT THIS TIME PATIENT VITALS STABLE, NO SIGNS OF ACUTE RESPIRATORY DISTRESS. THERMAL ENGINEER MADE AWARE. WILL CONTINUE TO MONITOR AND REASSESS FOR ANY CHANGES THROUGHOUT THE SHIFT.
[2020-10-31 04:00] VITALS: BP 140/68
--- NOTE | 2020-10-31 04:00 | NUR ---
RN NOTES PATIENT REMAINS IN NO ACUTE RESPIRATORY DISTRESS AT THIS TIME, NO CHANGES TO CONDITION/STATUS. AM PATIENT CARE DONE. SENIOR RD ENGINEER WELL AWARE. WILL CONTINUE TO MONITOR AND REASSESS FOR ANY CHANGES THROUGHOUT THE SHIFT
--- NOTE | 2020-10-31 06:51 | NUR ---
RN CLOSING NOTE: PATIENT REMAINS IN ROOM IN NO SIGNS OF RESPIRATORY DISTRESS, PATIENT STILL ON ROOM AIR;TOLERATING WELL SATURATING @ >95% SP02. SAFETY MEASURES IMPLEMENTED, BED IN LOWEST POSITION, LOCKED, SIDE RAILS UP, CALL LIGHT WITHIN REACH. ALL NEEDS AND ORDERS ADDRESSED DURING THE SHIFT. IV ACCESS MAINTAINED INTACT, SECURED AND FLUSHING WELL. ALL DUE MEDS GIVEN ORDERED & SCHEDULED ; PATIENT TOLERATED WELL. PATIENT KEPT CLEAN AND COMFORTABLE WITHIN THE SHIFT. PATIENT ENDORSED TO INCOMING SHIFT RN WITH STABLE VITAL SIGN AND FOR CONTINUITY OF CARE.
--- NOTE | 2020-10-31 07:25 | NUR ---
RN OPENING NOTE PATIENT RECEIVED IN BED RESTING IN SEMI-FOWLERS POSITION. PATIENT IN NO SIGNS OF RESPIRATORY DISTRESS. PATIENT ON ROOM AIR TOLERATING WELL. LEFT UPPER ARM MIDLINE IV ACCESS MAINTAINED INTACT AND PATIENT AND FLUSHING WELL. SAFETY PRECAUTIONS IMPLEMENTED, BED LOCKED IN LOWEST POSITION, SIDE RAILS UP X2, CALL LIGHT WITHIN REACH. WILL CONTINUE TO MONITOR AND PROVIDE CARE THROUGHOUT SHIFT.
[2020-10-31] MEDS: BLOOD SUGAR DIAGNOSTIC 1 EACH STRIP IN SCH (07:30)
[2020-10-31 08:00] VITALS: BP 137/72
[2020-10-31] MEDS: GLUCERNA SHAKE 237 ML CAN PO SCH ×3 (08:00→17:15)
[2020-10-31] MEDS: LISINOPRIL (20MG) 20 MG TABLET PO SCH ×2 (09:00→09:04)
[2020-10-31] MEDS: AMLODIPINE BESYLATE 10 MG TABLET PO SCH ×2 (09:00→09:03)
[2020-10-31] MEDS: ZINC SULFATE 220 MG CAPSULE PO SCH ×2 (09:00→09:03)
[2020-10-31] MEDS: HEPARIN SODIUM, PORCINE 5000 UNITS/1 ML VIAL SQ SCH ×3 (09:00→20:56)
[2020-10-31] MEDS: DOCUSATE SODIUM 100 MG CAPSULE PO SCH ×2 (09:00→09:02)
[2020-10-31] MEDS: ASCORBIC ACID 500 MG TABLET PO SCH ×2 (09:00→09:03)
[2020-10-31] MEDS: ASPIRIN 81 MG TAB.CHEW PO SCH ×2 (09:00→09:02)
[2020-10-31] MEDS: FERROUS SULFATE (325 MG) 325 MG/TAB TABLET PO SCH ×2 (09:02→17:17)
[2020-10-31] MEDS: Z GUARD REMEDY 2 OZ OINT TP SCH (09:04)
[2020-10-31] MEDS: DAKINS QUARTER STRENGTH (0.125%) 480 ML BOTTLE TOP SCH (09:04)
[2020-10-31 10:05] LABS: CALCIUM, SERUM 7.9 mg/dL (8.5-10.1); CARBON DIOXIDE 20 mmol/L (21-32); CHLORIDE 104 mmol/L (98-107); CREATININE 4.2 mg/dL (0.6-1.3); GLUCOSE 133 mg/dL (74-106); POTASSIUM 3.3 mmol/L (3.5-5.1); SODIUM SERUM 139 mmol/L (136-145); UREA NITROGEN, BLOOD 34 mg/dL (7-18)
--- NOTE | 2020-10-31 11:24 | NUR ---
patient refused all morning meds. cons of refusing meds explained to patient. patient A&Ox3 and verbalized understanding and still refused. patient also expressed disagreement and refusal with possible BKA.
[2020-10-31] MEDS: POTASSIUM CL. PREMIX PERIPHER. 50 ML IV SCH ×2 (13:45→14:00)
[2020-10-31] MEDS: SODIUM BICARBONATE IV SCH (14:15)
[2020-10-31] MEDS: D5 IV SCH (14:15)
[2020-10-31] MEDS: NACL IV SCH (14:15)
[2020-10-31] MEDS: CEFTRIAXONE 1 G in IV D5W 50 ML IV SCH (15:00)
[2020-10-31 16:00] VITALS: BP 135/73
--- NOTE | 2020-10-31 19:00 | NUR ---
RN CLOSING NOTE PATIENT IN BED RESTING IN SEMI-FOWLERS POSITION. PATIENT IN NO SIGNS OF RESPIRATORY DISTRESS. PATIENT ON ROOM AIR TOLERATING WELL. LEFT UPPER ARM MIDLINE IV ACCESS MAINTAINED INTACT AND PATIENT AND FLUSHING WELL RUNNING SODIUM BICARB D5 1/2 NS AT 60 ML/HR. SAFETY PRECAUTIONS IMPLEMENTED, BED LOCKED IN LOWEST POSITION, SIDE RAILS UP X2, CALL LIGHT WITHIN REACH. WILL ENDORSE CARE TO UPCOMING SHIFT.
[2020-10-31 20:00] VITALS: BP 148/77
[2020-10-31] MEDS: risperiDONE 1 MG TABLET PO SCH (20:52)
[2020-10-31] MEDS: MAGNESIUM OXIDE 400 MG TABLET PO SCH (21:23)
[2020-10-31] MEDS: TAMSULOSIN 0.4 MG CAP.SR.24H PO SCH (21:23)
[2020-11-01 04:00] VITALS: BP 132/68
[2020-11-01] MEDS: NACL IV SCH ×2 (06:13→06:20)
[2020-11-01] MEDS: D5 IV SCH ×2 (06:13→06:20)
[2020-11-01] MEDS: SODIUM BICARBONATE IV SCH ×2 (06:13→06:20)
--- NOTE | 2020-11-01 06:56 | NUR ---
RN notes In bed. resting comfortably with no distress noted. Breathing even and unlabored. On room air tolerating well. Alert and oriented, able to verbally communicate needs. No complaint of pain or discomfort. Kept clean and dry. Will endorse to next shift for continuity of care.
[2020-11-01] MEDS: GLUCERNA SHAKE 237 ML CAN PO SCH ×3 (08:00→16:15)
[2020-11-01] MEDS: BLOOD SUGAR DIAGNOSTIC 1 EACH STRIP IN SCH (08:05)
[2020-11-01] MEDS: LISINOPRIL (20MG) 20 MG TABLET PO SCH (09:00)
[2020-11-01] MEDS: DOCUSATE SODIUM 100 MG CAPSULE PO SCH ×2 (09:00→09:52)
[2020-11-01] MEDS: ASCORBIC ACID 500 MG TABLET PO SCH ×2 (09:00→09:52)
[2020-11-01] MEDS: ASPIRIN 81 MG TAB.CHEW PO SCH (09:00)
[2020-11-01] MEDS: AMLODIPINE BESYLATE 10 MG TABLET PO SCH ×2 (09:00→09:52)
[2020-11-01] MEDS: ZINC SULFATE 220 MG CAPSULE PO SCH ×2 (09:00→09:52)
[2020-11-01] MEDS ORDERED: VANCOMYCIN 0.75 GM in IV D5W 250 ML IV SCH ×2 (09:00→15:00)
--- NOTE | 2020-11-01 09:00 | NUR ---
SPOKE TO DR RODGERS REGARDING ASPIRIN AND HEPARIN DUE TO LOW HGB AND PLATELETS. PER MD TO GIVE BOTH MEDS.
[2020-11-01] MEDS: DAKINS QUARTER STRENGTH (0.125%) 480 ML BOTTLE TOP SCH (09:53)
[2020-11-01] MEDS: FERROUS SULFATE (325 MG) 325 MG/TAB TABLET PO SCH ×2 (09:53→16:15)
[2020-11-01] MEDS: Z GUARD REMEDY 2 OZ OINT TP SCH (09:54)
[2020-11-01] MEDS: HEPARIN SODIUM, PORCINE 5000 UNITS/1 ML VIAL SQ SCH ×2 (10:07→22:34)
[2020-11-01 13:45] LABS: CALCIUM, SERUM 7.7 mg/dL (8.5-10.1); CARBON DIOXIDE 30 mmol/L (21-32); CHLORIDE 102 mmol/L (98-107); CREATININE 3.1 mg/dL (0.6-1.3); GLUCOSE 137 mg/dL (74-106); SODIUM SERUM 139 mmol/L (136-145); UREA NITROGEN, BLOOD 22 mg/dL (7-18)
[2020-11-01] MEDS ORDERED: POTASSIUM CL. PREMIX PERIPHER. 50 ML IV SCH (14:30)
[2020-11-01 16:00] VITALS: BP 142/78
[2020-11-01] MEDS: CEFTRIAXONE 1 G in IV D5W 50 ML IV SCH (16:03)
[2020-11-01] MEDS: POTASSIUM CL. PREMIX PERIPHER. 50 ML IV SCH ×3 (18:47→22:33)
--- NOTE | 2020-11-01 19:26 | NUR ---
RN CLOSING NOTES Patient is alert and oriented. Patient is on room air. Left upper arm midline noted, flushed well. Patient did not eat breakfast, lunch or dinner. Patient had 1 apple and one banana. Endorsed to next shift to give two bags of potassium. Bed is in lowest and locked position. Call light within reach.
[2020-11-01 20:00] VITALS: BP 129/81
[2020-11-01] MEDS: TAMSULOSIN 0.4 MG CAP.SR.24H PO SCH (22:35)
[2020-11-01] MEDS: risperiDONE 1 MG TABLET PO SCH (22:35)
[2020-11-01] MEDS: MAGNESIUM OXIDE 400 MG TABLET PO SCH (22:35)
[2020-11-02 04:00] VITALS: BP 143/63
--- NOTE | 2020-11-02 06:37 | NUR ---
RN notes Resting comfortably in bed. No respiratory distress noted. Breathing even and unlabored. On room air tolerating well. Alert and oriented, able to verbally communicate needs. No complaint of pain or discomfort. Vital signs wnl. Compliant with medications and allowed blood draw. Kept clean and dry. Will endorse to next shift for continuity of care.
[2020-11-02] MEDS: BLOOD SUGAR DIAGNOSTIC 1 EACH STRIP IN SCH (07:34)
[2020-11-02 07:39] LABS: CALCIUM, SERUM 7.5 mg/dL (8.5-10.1); CARBON DIOXIDE 28 mmol/L (21-32); CHLORIDE 103 mmol/L (98-107); CREATININE 2.6 mg/dL (0.6-1.3); GLUCOSE 106 mg/dL (74-106); POTASSIUM 3.4 mmol/L (3.5-5.1); SODIUM SERUM 138 mmol/L (136-145); UREA NITROGEN, BLOOD 19 mg/dL (7-18)
[2020-11-02 08:00] VITALS: BP 136/78
[2020-11-02] MEDS: GLUCERNA SHAKE 237 ML CAN PO SCH ×3 (08:00→16:31)
[2020-11-02] MEDS: DOCUSATE SODIUM 100 MG CAPSULE PO SCH (08:50)
[2020-11-02] MEDS: ASCORBIC ACID 500 MG TABLET PO SCH (08:50)
[2020-11-02] MEDS: ZINC SULFATE 220 MG CAPSULE PO SCH (08:51)
[2020-11-02] MEDS: LISINOPRIL (20MG) 20 MG TABLET PO SCH (08:51)
[2020-11-02] MEDS: AMLODIPINE BESYLATE 10 MG TABLET PO SCH (08:51)
[2020-11-02] MEDS: ASPIRIN 81 MG TAB.CHEW PO SCH (08:51)
[2020-11-02] MEDS: FERROUS SULFATE (325 MG) 325 MG/TAB TABLET PO SCH ×2 (08:51→16:31)
[2020-11-02] MEDS: HEPARIN SODIUM, PORCINE 5000 UNITS/1 ML VIAL SQ SCH ×2 (08:59→21:31)
[2020-11-02] MEDS: Z GUARD REMEDY 2 OZ OINT TP SCH (09:00)
[2020-11-02] MEDS: DAKINS QUARTER STRENGTH (0.125%) 480 ML BOTTLE TOP SCH (09:00)
--- NOTE | 2020-11-02 12:32 | NUR ---
RN OPENING NOTES RN OPENING NOTES Patient is alert and oriented. Patient is on room air with 02 saturation of 99%. Left upper arm midline noted, flushed well and saline locked. Bed is in lowest and locked position. Call light within reach.
[2020-11-02 16:00] VITALS: BP 146/82
[2020-11-02] MEDS: CEFTRIAXONE 1 G in IV D5W 50 ML IV SCH (16:25)
--- NOTE | 2020-11-02 19:09 | NUR ---
RN CLOSING NOTES Patient is alert and oriented.Patient ate 25% breakfast and 25% lunch and refused dinner. Offered alternatives but to no avail. Patient refused Glucerna , offered x 3. Patient is on room air with 02 saturation of 96%. Left upper arm midline noted, flushed well and saline locked. Bed is in lowest and locked position. Call light within reach.
[2020-11-02 20:00] VITALS: BP 142/68
--- NOTE | 2020-11-02 20:00 | NUR ---
RN NOTE RECEIVED PT IN BED, ALERT AND ORIENTED. VERBALLY RESPONSIVE. NO SIGNS OF ANY DISTRESS, TOLERATING ROOM AIR. O2 SAT AT 99%. PT WITH LILIBETH MIDLINE PATENT AND INTACT, FLUSHES WELL. WOUND DRESSING ON L HEEL CLEAN DRY AND INTACT. WILL CONTINUE TO MONITOR. ALL SAFETY MEASURES IN PLACE. CALL LIGHT WITHIN REACH, BED LOCKED IN LOWEST POSITION. SIDE RAILS UP.
[2020-11-02] MEDS: risperiDONE 1 MG TABLET PO SCH (21:30)
[2020-11-02] MEDS: TAMSULOSIN 0.4 MG CAP.SR.24H PO SCH (21:30)
[2020-11-02] MEDS: MAGNESIUM OXIDE 400 MG TABLET PO SCH (21:30)
[2020-11-03] VITALS (8 sets, daily range): BP systolic 117–142; BP diastolic 63–81
--- NOTE | 2020-11-03 00:57 | NUR ---
RN NOTE PT SLEEPING, AROUSES EASILY. NO SIGNS OF DISTRESS NOTED. WILL CONTINUE TO MONITOR.
[2020-11-03 06:25] LABS: BASOPHILS % (AUTO) 0.6 % (0.0-2.0); EOSINOPHILS % (AUTO) 3.9 % (0.0-6.0); HEMATOCRIT 21 % (39-51); LYMPHOCYTES # (AUTO) 1.2 /CMM (0.8-4.8); LYMPHOCYTES % (AUTO) 18.4 % (20.0-44.0); MEAN CORPUSCULAR HGB CONC 33 g/dl (31.0-36.0); MEAN CORPUSCULAR VOLUME 82 fL (80-96); MONOCYTES # (AUTO) 0.5 /CMM (0.1-1.30); MONOCYTES % (AUTO) 7.7 % (2.0-12.0); NEUTROPHILS # (AUTO) 4.4 /CMM (1.8-8.9); NEUTROPHILS % (AUTO) 69.4 % (43.0-81.0); PLATELET COUNT (AUTO) 118 /CMM (150-450); WHITE BLOOD COUNT (AUTO) 6.3 K/uL (4.3-11.0)
--- NOTE | 2020-11-03 06:30 | NUR ---
RN NOTE PT AWAKE, WATCHING TV. DENIES ANY PAIN. NOT IN ANY ACUTE DISTRESS. TOLERATING ROOM AIR. REMAIN AFEBRILE, NO CHANGES IN LOC NOTED. KEPT CLEAN AND COMFORTABLE. REPOSITIONED. ALL SAFETY MEASURES IN PLACE. WILL ENDORSE TO NEXT SHIFT NURSE FOR KINZA.
[2020-11-03 06:50] LABS: CALCIUM, SERUM 7.6 mg/dL (8.5-10.1); CARBON DIOXIDE 31 mmol/L (21-32); CHLORIDE 102 mmol/L (98-107); GLUCOSE 101 mg/dL (74-106); MAGNESIUM 1.6 mg/dL (1.8-2.4); PHOSPHORUS 2.1 mg/dL (2.5-4.9); POTASSIUM 3.2 mmol/L (3.5-5.1); SODIUM SERUM 138 mmol/L (136-145); UREA NITROGEN, BLOOD 14 mg/dL (7-18)
--- NOTE | 2020-11-03 07:00 | NUR ---
RN NOTE RECEIVED CALL FROM LAB, PT HGB 7.0. EVENT COORDINATOR DR GARCIA NOTIFIED, AWAITING FOR ORDERS.
--- NOTE | 2020-11-03 07:22 | NUR ---
RN NOTE LOW HGB REPORTED TO ONCOMING NURSEEULOGIO.
[2020-11-03] MEDS ORDERED: POTASSIUM CHLORIDE 20 MEQ TAB.PRT.SR PO ONE ×2 (08:00→20:00)
[2020-11-03] MEDS ORDERED: MAGNESIUM OXIDE 400 MG TABLET PO ONE (08:00)
[2020-11-03] MEDS: HEPARIN SODIUM, PORCINE 5000 UNITS/1 ML VIAL SQ SCH ×2 (09:00→21:00)
[2020-11-03] MEDS: ASPIRIN 81 MG TAB.CHEW PO SCH (09:00)
[2020-11-03] MEDS: GLUCERNA SHAKE 237 ML CAN PO SCH ×2 (09:12→12:14)
[2020-11-03] MEDS: BLOOD SUGAR DIAGNOSTIC 1 EACH STRIP IN SCH (09:12)
[2020-11-03] MEDS: LISINOPRIL (20MG) 20 MG TABLET PO SCH (09:13)
[2020-11-03] MEDS: AMLODIPINE BESYLATE 10 MG TABLET PO SCH (09:13)
[2020-11-03] MEDS: FERROUS SULFATE (325 MG) 325 MG/TAB TABLET PO SCH ×2 (09:13→18:12)
[2020-11-03] MEDS: ASCORBIC ACID 500 MG TABLET PO SCH (09:14)
[2020-11-03] MEDS: DOCUSATE SODIUM 100 MG CAPSULE PO SCH (09:14)
[2020-11-03] MEDS: ZINC SULFATE 220 MG CAPSULE PO SCH (09:14)
[2020-11-03] MEDS: DAKINS QUARTER STRENGTH (0.125%) 480 ML BOTTLE TOP SCH (09:14)
[2020-11-03] MEDS: Z GUARD REMEDY 2 OZ OINT TP SCH (09:15)
--- NOTE | 2020-11-03 09:15 | NUR ---
RN NOTE HELD HEPARIN AND ASA DUE TO LOW HGB, PLATELET COUNT
[2020-11-03] MEDS ORDERED: NEUTRA PHOS 1 POWD.PACKET PO ONE (11:30)
[2020-11-03] MEDS: CEFTRIAXONE 1 G in IV D5W 50 ML IV SCH (15:55)
[2020-11-03] MEDS: VANCOMYCIN 0.75 GM in IV D5W 250 ML IV SCH (16:48)
--- NOTE | 2020-11-03 19:30 | NUR ---
RN OPENING NOTE RECEIVED PT IN BED AWAKE, ON ROOM AIR. NO SOB OR RESP DISTRESS NOTED. PT TOLERATING WELL. O2 SAT 100% PT IS A/O X2 COOPERATIVE WITH CARE. PT ON MED SURG MONITORING. PT HAS BLOOD TRANSFUSION ONGOING. TOLERATING WELL. LILIBETH MIDLINE FLUSHED ASEPTICALLY. LEFT HEEL WOUND NOTED. SAFETY MEASURES IN PLACE HOB ELEVATED SIDE RAILS UP X2 BED LOCKED IN LOWEST POSITION WITH BED ALARM ON. CALL LIGHT WITHIN REACH.
--- NOTE | 2020-11-03 20:29 | NUR ---
RN NOTE POTASSIUM OF 3.2 FROM AM LABS, NOTIFIED DIESEL MECHANIC HELPER DR GARCIA. ORDERS FOR 40MEQ POTASSIUM CHLORIDE PO ONCE, CARRIED OUT. Addendum: 11/03/20 at 2107 by JUAN F DAVIS RN PREVIOUS ADMINISTRATION, RECORDS FROM 0900 ADMINISTERED ACCORDING TO EMAR. 2000 DOSE NOT GIVEN. WILL RETURN PULLED OUT POTASSIUM CHLORIDE.
[2020-11-03] MEDS: MAGNESIUM OXIDE 400 MG TABLET PO SCH (21:27)
[2020-11-03] MEDS: TAMSULOSIN 0.4 MG CAP.SR.24H PO SCH (21:27)
[2020-11-03] MEDS: risperiDONE 1 MG TABLET PO SCH (21:27)
[2020-11-04 01:09] LABS: OCCULT BLOOD STOOL NEGATIVE (NEGATIVE)
[2020-11-04 04:00] VITALS: BP 143/70
[2020-11-04 06:31] LABS: BASOPHILS # (AUTO) 0.1 /CMM (0.0-0.2); BASOPHILS % (AUTO) 0.7 % (0.0-2.0); EOSINOPHILS % (AUTO) 3.5 % (0.0-6.0); HEMATOCRIT 25 % (39-51); LYMPHOCYTES # (AUTO) 1.3 /CMM (0.8-4.8); LYMPHOCYTES % (AUTO) 19.2 % (20.0-44.0); MEAN CORPUSCULAR HGB CONC 33 g/dl (31.0-36.0); MEAN CORPUSCULAR VOLUME 84 fL (80-96); MONOCYTES # (AUTO) 0.6 /CMM (0.1-1.30); MONOCYTES % (AUTO) 8.7 % (2.0-12.0); NEUTROPHILS # (AUTO) 4.7 /CMM (1.8-8.9); NEUTROPHILS % (AUTO) 67.9 % (43.0-81.0); PLATELET COUNT (AUTO) 133 /CMM (150-450); RED BLOOD CELL COUNT(AUTO) 2.94 MIL/uL (4.5-6.0)
[2020-11-04 06:59] LABS: ALANINE AMINOTRANSFERASE 12 U/L (12-78); ALBUMIN 1.7 g/dL (3.4-5.0); ALKALINE PHOSPHATASE 68 U/L (46-116); ASPARTATE AMINOTRANSFERASE 14 U/L (15-37); BILIRUBIN,TOTAL 0.5 mg/dL (0.2-1.0); CALCIUM, SERUM 7.7 mg/dL (8.5-10.1); CARBON DIOXIDE 31 mmol/L (21-32); CHLORIDE 103 mmol/L (98-107); CREATININE 1.7 mg/dL (0.6-1.3); GLUCOSE 104 mg/dL (74-106); MAGNESIUM 1.7 mg/dL (1.8-2.4); PHOSPHORUS 1.4 mg/dL (2.5-4.9); POTASSIUM 3.8 mmol/L (3.5-5.1); SODIUM SERUM 138 mmol/L (136-145); TOTAL PROTEIN, SERUM 5.8 g/dL (6.4-8.2); UREA NITROGEN, BLOOD 13 mg/dL (7-18)
[2020-11-04 07:12] LABS: IRON, SERUM 39 ug/dl (50-175); TOTAL IRON BINDING CAPACITY 87 ug/dl (250-450)
[2020-11-04 07:23] LABS: FERRITIN 623 ng/mL (8-388)
--- NOTE | 2020-11-04 07:27 | NUR ---
RN CLOSING NOTE PT STILL REMAINS ON ROOM AIR NO DISTRESS NOTED. ALL NEEDS ATTENDED AT THIS TIME. NO SIGNIFICANT CHANGES TO PT CONDITION THROUGHOUT SHIFT. PT AFEBRILE. ALL SAFETY MEASURES IN PLACE. HOB ELEVATED. SIDE RAILS UP X2 BED LOCKED IN LOWEST POSITION WITH BED ALARM ON. CALL LIGHT WITHIN REACH. WILL ENDORSE TO DAY SHIFT FOR CONTINUATION OF CARE.
[2020-11-04] MEDS: BLOOD SUGAR DIAGNOSTIC 1 EACH STRIP IN SCH (07:30)
--- NOTE | 2020-11-04 07:30 | NUR ---
RN OPENING NOTE PATIENT RECEIVED IN BED RESTING IN SEMI-FOWLERS POSITION. PATIENT ON ROOM AIR TOLERATING WELL. NO SOB OR RESP DISTRESS NOTED. LILIBETH MIDLINE INTACT AND PATENT FLUSHING WELL. LEFT HEEL WOUND NOTED. SAFETY PRECAUTIONS IMPLEMENTED, HOB ELEVATED, SIDE RAILS UP X2, BED LOCKED IN LOWEST POSITION, BED ALARM ON, CALL LIGHT WITHIN REACH. WILL CONTINUE TO MONITOR AND PROVIDE CARE THROUGHOUT SHIFT.
[2020-11-04 08:00] VITALS: BP 144/75
--- NOTE | 2020-11-04 08:46 | NUR ---
WOUND CARE CONSULT/FOLLOW UP: PT EATING AT THIS TIME. REVIEWED CHART,NURSING DOCUMENTATION AND PHOTO WHICH INDICATES INCONTINENCE ASSOCIATED SKIN DAMAGE OVER PREVIOUS SACRAL SCARRING. SCARRING WAS NOTED TO BE PRESENT ON ADMISSION. RECOMMENDATIONS MADE FOR SKIN PROTECTION AND DISCUSSED WITH NURSING STAFF. FIRST STEP LOW AIRLOSS MATTRESS IS ON ORDER. MD IN AGREEMENT WITH PLAN OF CARE.
[2020-11-04] MEDS: DAKINS QUARTER STRENGTH (0.125%) 480 ML BOTTLE TOP SCH (09:00)
[2020-11-04] MEDS: HEPARIN SODIUM, PORCINE 5000 UNITS/1 ML VIAL SQ SCH ×3 (09:00→21:11)
[2020-11-04] MEDS: ZINC SULFATE 220 MG CAPSULE PO SCH ×2 (09:00→09:56)
[2020-11-04] MEDS: Z GUARD REMEDY 2 OZ OINT TP SCH (09:00)
[2020-11-04] MEDS: DOCUSATE SODIUM 100 MG CAPSULE PO SCH ×2 (09:00→09:55)
[2020-11-04] MEDS: ASPIRIN 81 MG TAB.CHEW PO SCH (09:55)
[2020-11-04] MEDS: ASCORBIC ACID 500 MG TABLET PO SCH (09:55)
[2020-11-04] MEDS: FERROUS SULFATE (325 MG) 325 MG/TAB TABLET PO SCH ×2 (09:55→16:03)
[2020-11-04] MEDS: AMLODIPINE BESYLATE 10 MG TABLET PO SCH (09:58)
[2020-11-04] MEDS: LISINOPRIL (20MG) 20 MG TABLET PO SCH (09:58)
[2020-11-04] MEDS ORDERED: K PHOS NEUTRAL 250 MG TABLET PO ONE (11:30)
[2020-11-04] MEDS: ESCITALOPRAM OXALATE (10 MG) 10 MG TABLET PO SCH (13:46)
[2020-11-04] MEDS: CEFTRIAXONE 1 G in IV D5W 50 ML IV SCH (14:24)
[2020-11-04 16:00] VITALS: BP 130/69
--- NOTE | 2020-11-04 18:50 | NUR ---
RN OPENING NOTE PATIENT IN BED RESTING IN SEMI-FOWLERS POSITION. PATIENT ON ROOM AIR TOLERATING WELL. NO SOB OR RESP DISTRESS NOTED. LILIBETH MIDLINE INTACT AND PATENT FLUSHING WELL. LEFT HEEL WOUND NOTED. SAFETY PRECAUTIONS IMPLEMENTED, HOB ELEVATED, SIDE RAILS UP X2, BED LOCKED IN LOWEST POSITION, BED ALARM ON, CALL LIGHT WITHIN REACH. CONSENT SIGNED FOR LEFT LOWER EXTREMITY ANGIOGRAM. WILL ENDORSE CARE TO UPCOMING SHIFT.
[2020-11-04 20:00] VITALS: BP 141/77
--- NOTE | 2020-11-04 20:34 | NUR ---
RN NOTE RECEIVED PT IN BED, ALERT AND ORIENTED. ON ROOM AIR, NO SIGNS OF ANY DISTRESS, O2 SAT AT 99%. DENIES ANY PAIN AT THIS TIME. PT WITH LILIBETH MIDLINE PATENT AND INTACT, FLUSHES WELL. WOUND DRESSING ON L HEEL CLEAN DRY AND INTACT. WITH SWELLING ON LEFT HEEL. WILL CONTINUE TO MONITOR. ALL SAFETY MEASURES IN PLACE. CALL LIGHT WITHIN REACH, BED LOCKED IN LOWEST POSITION. SIDE RAILS UP.
[2020-11-04] MEDS: TAMSULOSIN 0.4 MG CAP.SR.24H PO SCH (21:09)
[2020-11-04] MEDS: MAGNESIUM OXIDE 400 MG TABLET PO SCH (21:09)
[2020-11-04] MEDS: risperiDONE 1 MG TABLET PO SCH (21:09)
[2020-11-04] MEDS ORDERED: Sodium Phosphate 30 MMOL in IV NS 0.9% 250 ML IV SCH (21:30)
[2020-11-04] MEDS ORDERED: Magnesium 1GM/D5W 100ML PREMIX 100 ML IV SCH ×2 (21:30→22:00)
[2020-11-04] MEDS: IV NS 0.9% 1,000 ML IV SCH (22:17)
[2020-11-04] MEDS ORDERED: Magnesium 1GM/D5W 100ML PREMIX 100 ML IV ONE (23:00)
--- NOTE | 2020-11-05 00:31 | NUR ---
RN NOTE IV SODIUM PHOSPHATE NOT GIVEN DUE TO UNAVAILABILITY, CHECKED BY CHARGE NURSE AND NSG DIESEL POWER SHOVEL OPERATOR. PAGED DR CARVER. PER MD OK TO WAIT IN AM FOR PHARMACY. IV MG 1GM GIVEN AND IVF NS ALREADY STARTED. WILL CONTINUE TO MONITOR.
[2020-11-05 04:00] VITALS: BP 143/75
--- NOTE | 2020-11-05 06:49 | NUR ---
RN NOTE PT REMAINS IN BED, SLEEPING, AROUSES EASILY. NO SIGNIFICANT CHANGES NOTED. CONTINUE ON IV NS AT 75ML/HR. NO SIGNS OF INFILTRATION. DENIES ANY PAIN. NOT IN ANY ACUTE DISTRESS. WOUND TX DONE ON SACRUM. CALLED PHARMACY REGARDING SODIUM PHOSPHATE. PER PHARMACY THEY WILL PREPARE IT. ALL SAFETY MEASURES MAINTAINED. WILL ENDORSE TO NEXT SHIFT NURSE FOR KINZA.
[2020-11-05 06:56] LABS: CALCIUM, SERUM 7.4 mg/dL (8.5-10.1); CARBON DIOXIDE 31 mmol/L (21-32); CHLORIDE 103 mmol/L (98-107); CREATININE 1.4 mg/dL (0.6-1.3); GLUCOSE 105 mg/dL (74-106); POTASSIUM 4.3 mmol/L (3.5-5.1); SODIUM SERUM 138 mmol/L (136-145); UREA NITROGEN, BLOOD 11 mg/dL (7-18)
--- NOTE | 2020-11-05 07:06 | NUR ---
WOUND CARE: PT SEEN FOR INCONTINENCE ASSOCIATED SKIN DAMAGE OVER PREVIOUS SACRAL SCARRING. SACRAL SCARRING NOTED TO BE PRESENT ON ADMISSION. RECOMMENDATIONS MADE FOR SKIN PROTECTION AND DISCUSSED WITH NURSING STAFF. IN AGREEMENT WITH PLAN OF CARE. Addendum: 11/05/20 at 0707 by JONO ESCAMILLA WNDNU Amended: Links added.
--- NOTE | 2020-11-05 07:20 | NUR ---
ms rn received on bed, awake,alert,oriented x2,not in any form of distress, [id number] even and unlabored,no sob noted,denies pain at this time, will monitor patient's condition.all needs attended.
[2020-11-05 08:02] LABS: PHOSPHORUS 1.8 mg/dL (2.5-4.9)
[2020-11-05] MEDS: BLOOD SUGAR DIAGNOSTIC 1 EACH STRIP IN SCH (08:12)
--- NOTE | 2020-11-05 08:45 | NUR ---
ms rn patient refused breakfast,but was able to take his meds.
--- NOTE | 2020-11-05 09:00 | NUR ---
ms rn dressing to left foot done.
[2020-11-05] MEDS: ASPIRIN 81 MG TAB.CHEW PO SCH (09:21)
[2020-11-05] MEDS: DOCUSATE SODIUM 100 MG CAPSULE PO SCH (09:22)
[2020-11-05] MEDS: ESCITALOPRAM OXALATE (10 MG) 10 MG TABLET PO SCH (09:22)
[2020-11-05] MEDS: ASCORBIC ACID 500 MG TABLET PO SCH (09:22)
[2020-11-05] MEDS: ZINC SULFATE 220 MG CAPSULE PO SCH (09:22)
[2020-11-05] MEDS: FERROUS SULFATE (325 MG) 325 MG/TAB TABLET PO SCH ×2 (09:22→17:10)
[2020-11-05] MEDS: AMLODIPINE BESYLATE 10 MG TABLET PO SCH (09:23)
[2020-11-05] MEDS: LISINOPRIL (20MG) 20 MG TABLET PO SCH (09:23)
[2020-11-05] MEDS: HEPARIN SODIUM, PORCINE 5000 UNITS/1 ML VIAL SQ SCH ×2 (09:25→21:00)
--- NOTE | 2020-11-05 10:40 | NUR ---
ms rn was seen by dr. tom franco/ adeline ,patient npo before mn, for cardiac cath in am.
[2020-11-05] MEDS: IV NS 0.9% 1,000 ML IV SCH (10:50)
[2020-11-05] MEDS ORDERED: Sodium Phosphate 30 MMOL in IV NS 0.9% 250 ML IV SCH (11:00)
[2020-11-05] MEDS: PROSOURCE / PROSTAT (PYXIS) 30 ML UDC PO SCH ×3 (11:00→17:10)
[2020-11-05] MEDS: CEFTRIAXONE 1 G in IV D5W 50 ML IV SCH (15:01)
[2020-11-05] MEDS: VANCOMYCIN 0.75 GM in IV D5W 250 ML IV SCH (16:51)
[2020-11-05] MEDS: DAKINS QUARTER STRENGTH (0.125%) 480 ML BOTTLE TOP SCH (17:35)
[2020-11-05] MEDS: Z GUARD REMEDY 2 OZ OINT TP SCH (17:38)
--- NOTE | 2020-11-05 18:47 | NUR ---
ms rn on bed, no distress noted, all needs attended, npo post mn for sx in am, consent done.
--- NOTE | 2020-11-05 19:30 | NUR ---
RN OPENING NOTE PATIENT IN BED, EYES CLOSED, EASILY AWAKENED. PATIENT IS A/O X 2. PATIENT HAS A DRESSING PRESENT ON LEFT LOWER ANKLE, C/D/I. PATIENT IS TO BE NPO POST MIDNIGHT. PATIENT'S BREATHINING EVEN AND UNLABORED. TOLERATES ROOM AIR WITH 99% O2 SATURATION. SAFETY MEASURES IN PLACE: BED LOCKED AND IN LOWEST POSITION, CALL LIGHT WITHIN REACH, HOB ELEVATED, SIDE RAILS UP. WILL MONITOR PATIENT CLOSELY.
[2020-11-05 20:00] VITALS: BP 149/79
[2020-11-05] MEDS: risperiDONE 1 MG TABLET PO SCH (21:28)
[2020-11-05] MEDS: MAGNESIUM OXIDE 400 MG TABLET PO SCH (21:28)
[2020-11-05] MEDS: TAMSULOSIN 0.4 MG CAP.SR.24H PO SCH (21:28)
--- NOTE | 2020-11-05 21:30 | NUR ---
CORINA NOT GIVEN D/T LEFT LOWER EXTREMITY ANGIOGRAM IN AM Addendum: 11/05/20 at 2131 by PJ BAEZ RN HEPARIN*
[2020-11-06] VITALS (31 sets, daily range): BP systolic 80–151; BP diastolic 53–87
[2020-11-06] MEDS: IV NS 0.9% 1,000 ML IV SCH ×3 (00:53→23:00)
[2020-11-06] MEDS ORDERED: IODIXANOL 150 ML IV ONE (06:48)
[2020-11-06] MEDS ORDERED: IV NS 0.9% 1,000 ML ONE (06:48)
[2020-11-06] MEDS ORDERED: NITROGLYCERIN IN 5 % DEXTROSE 250 ML IV ONE (06:49)
[2020-11-06] MEDS ORDERED: LIDOCAINE HCL/PF 1% 30 ML SDV ONE (06:50)
--- NOTE | 2020-11-06 07:15 | NUR ---
RN CLOSING NOTE PATIENT IN BED, EYES CLOSED. PATIENT'S BREATHING EVEN AND UNLABORED. TOLERATES ROOM AIR AT 97% O2 SATURATION. WOUND TX PROVIDED ON SACRAL AND L HEEL WOUND. DOES NOT COMPLAIN OF PAIN AT THIS TIME. SAFETY MEASURES MAINTAINED, ALL NEEDS MET AND ATTENDED. ALL ORDERS CARRIED OUT. NO SIGNIFICANT CHANGES DURING THE SHIFT. TECHNICAL TRAINING INSTRUCTOR CALLED TO CONFIRM PROCEDURE. ENDORSED TO DAY SHIFT NURSE FOR KINZA.
[2020-11-06] MEDS ORDERED: MIDAZOLAM HCL 2 MG/2ML VIAL ONE (07:29)
[2020-11-06] MEDS ORDERED: FENTANYL PF 100MCG/2ML AMPUL ONE (07:29)
[2020-11-06] MEDS: BLOOD SUGAR DIAGNOSTIC 1 EACH STRIP IN SCH (07:30)
[2020-11-06 07:36] LABS: CALCIUM, SERUM 7.9 mg/dL (8.5-10.1); CREATININE 1.3 mg/dL (0.6-1.3); POTASSIUM 3.5 mmol/L (3.5-5.1)
[2020-11-06] MEDS ORDERED: HEPARIN SODIUM, PORCINE 1,000 UNIT/ML VIAL ONE (08:28)
[2020-11-06] MEDS ORDERED: IODIXANOL 320MG/ML 50 ML IV ONE (08:34)
[2020-11-06] MEDS ORDERED: IODIXANOL 320MG/ML 100 ML IV ONE (08:35)
[2020-11-06] MEDS ORDERED: CLOPIDOGREL BISULFATE 300 MG TABLET ONE (08:37)
[2020-11-06] MEDS ORDERED: ASPIRIN 81 MG TAB.CHEW ONE (08:38)
[2020-11-06] MEDS: AMLODIPINE BESYLATE 10 MG TABLET PO SCH (09:00)
[2020-11-06] MEDS: HEPARIN SODIUM, PORCINE 5000 UNITS/1 ML VIAL SQ SCH ×2 (09:00→20:30)
[2020-11-06] MEDS: PROSOURCE / PROSTAT (PYXIS) 30 ML UDC PO SCH ×3 (09:00→17:04)
[2020-11-06] MEDS: LISINOPRIL (20MG) 20 MG TABLET PO SCH (09:00)
[2020-11-06] MEDS: ASPIRIN 81 MG TAB.CHEW PO SCH (09:00)
--- NOTE | 2020-11-06 09:27 | NUR ---
RN NOTE GAVE REPORT TO COVERAGE SPECIALIST RNBHAMAN SAENZ FOR KINZA.
--- NOTE | 2020-11-06 09:30 | NUR ---
RN NOTE RECEIVED VERBAL REPORT FROM BAHMAN ABDI.
--- NOTE | 2020-11-06 09:45 | NUR ---
RN NOTE RECEIVED PATIENT AWAKE, ALERT, AND RESPONSIVE. NOT IN ANY RESPIRATORY DISTRESS AND SATURATING 99% ON RA. ST 100-110S ON ARRIVAL. LILIBETH MIDLINE INTACT. RIGHT GROIN DRESSING DRY AND INTACT, NO BLEEDING NO SWELLING NO HEMATOMA. PALPABLE DP PULSE AT RIGHT FT AND AUDIBLE DP PULSES VIA DOPPLER AT LEFT FT. DRESSING INTACT AT LEFT HEEL. KEEP ON BEDREST FOR TWO HOURS PER POST CATH PROTOCOL. ON FIRST STEP MATTRESS. SAFETY CHECKS IN PLACE. WILL CONTINUE TO MONITOR.
[2020-11-06] MEDS: DOCUSATE SODIUM 100 MG CAPSULE PO SCH (10:22)
[2020-11-06] MEDS: FERROUS SULFATE (325 MG) 325 MG/TAB TABLET PO SCH ×2 (10:23→17:04)
[2020-11-06] MEDS: ESCITALOPRAM OXALATE (10 MG) 10 MG TABLET PO SCH (10:23)
[2020-11-06] MEDS: ZINC SULFATE 220 MG CAPSULE PO SCH (10:23)
[2020-11-06] MEDS: ASCORBIC ACID 500 MG TABLET PO SCH (10:23)
[2020-11-06] MEDS: DAKINS QUARTER STRENGTH (0.125%) 480 ML BOTTLE TOP SCH (10:24)
[2020-11-06] MEDS: Z GUARD REMEDY 2 OZ OINT TP SCH (10:25)
[2020-11-06] MEDS: CEFTRIAXONE 1 G in IV D5W 50 ML IV SCH (14:35)
--- NOTE | 2020-11-06 16:00 | NUR ---
RN NOTE CONSENT OBTAINED FOR EXCISIONAL DEBRIDEMENT WITH PARTIAL CALCANECTOMY. PATIENT TOLERATING SOFT DIET WELL.
[2020-11-06] MEDS: VANCOMYCIN 0.75 GM in IV D5W 250 ML IV SCH (18:05)
--- NOTE | 2020-11-06 19:05 | NUR ---
RECEIVED PT ON BED AWAKE AA/O X2 WITH EPISODE OF FORGETFULNESS ON ROOM AIR TOLERATING WELL WITH SPO2 98% NO SOB AND PAIN COMPLAINT, TELE MONITOR READS SINUS RHYTHM 92, HAVE LILIBETH MIDLINE WITH ONGOING NS @ 100 ML/HR INFUSING WELL, HAVE CONDOM CATHETER BUT LEAKING WILL TRY NO PUT A NEW ONE, WITH YELLOW URINE, PT IS S/P LLE ANGIOGRAM INSIGHT DIRECTOR ! LEFT ANT TIBIAL ARTERY DRESSING IS DRY AND INTACT NO BLEEDING NOTED, PULSE ON LOWER EXTREMITIES CHECKED PALPABLE ON RIGHT AND STRONG,ON LEFT LOWER EXTREMITIES IS WEAK AND WE USE DOPPLER, BED ON LOWEST POSITION AND LOCKED SIDE RAIL UPS X 2 CALL LIGHT WITHIN REACH WILL CONT TO MONITOR
--- NOTE | 2020-11-06 19:10 | NUR ---
RN CLOSING NOTE PATIENT IS ASLEEP BUT EASILY ROUSABLE. NOT IN ANY RESPIRATORY DISTRESS AND SATURATING 99% ON RA. NSR 94 ON TELE MONITOR. LILIBETH MIDLINE INTACT WITH NS AT 100ML/HR. RIGHT GROIN DRESSING DRY AND INTACT, NO BLEEDING NO SWELLING NO HEMATOMA. PALPABLE DP PULSE AT RIGHT FT AND AUDIBLE DP PULSES VIA DOPPLER AT LEFT FT. GOOD COLOR AND WARMTH ON BOTH FEET. MOVEMENT PRESENT ON LEFT FOOT BUT RIGHT FOOT MOVES MINIMALLY. DRESSING INTACT AT LEFT HEEL. SAFETY CHECKS IN PLACE. ENDORSED TO NIGHT RN FOR CONTINUITY OF CARE.
[2020-11-06] MEDS: risperiDONE 1 MG TABLET PO SCH (20:28)
[2020-11-06] MEDS: MAGNESIUM OXIDE 400 MG TABLET PO SCH (21:03)
[2020-11-06] MEDS: TAMSULOSIN 0.4 MG CAP.SR.24H PO SCH (21:03)
[2020-11-07] VITALS (27 sets, daily range): BP systolic 119–143; BP diastolic 58–79
--- NOTE | 2020-11-07 00:32 | NUR ---
PT ON BED ASLEEP EASY TO WAKE UP, NOSIGN OF ANY DISTRESS NO PAIN COMPLAINT, ANGIRAM EXCISSION DRESSING CLEAN AND DRY NO BEELING NOTED, LOWER EXTREMITIES PULSE CHECKED RIGHT LOWER DORSALIS PEDIS PALPABLE AND WITHIN NORMAL LEFT DORSALIS PEDIS IS WEAK AND USED DOPPLER TO CHECKED, SAFETY MEASURE MAINTAINED WILL CONT TO MONITOR
[2020-11-07 04:32] LABS: CALCIUM, SERUM 7.4 mg/dL (8.5-10.1); CREATININE 1.3 mg/dL (0.6-1.3); POTASSIUM 3.4 mmol/L (3.5-5.1)
--- NOTE | 2020-11-07 06:48 | NUR ---
PT ON BED ASLEEP EASY TO WAKE UP, ON ROOM AIR WITH SPO2 99% NO SIGN OF RESPIRATORY DISTRESS NOTED, NO COMPLAINT OF ANY PAIN, ANGIOGRAM ACCESS EXCISSION DRESSING CLEAN DRY AND INTACT, NO BLEEDING NOTED, NO SIGNIFICANT CHANGES ON CONDITION NOTED ALL NEEDS ATTENDED WOUND TREATMENT WAS DONE, BED ON LOWEST POSITION AND LOCKED SIDE RAILS UP X2 CALL LIGHT WITHIN REACH WILL ENDORSED TO AM SHIFT NURSE
[2020-11-07] MEDS: BLOOD SUGAR DIAGNOSTIC 1 EACH STRIP IN SCH (08:24)
[2020-11-07] MEDS: ASPIRIN 81 MG TAB.CHEW PO SCH (08:52)
[2020-11-07] MEDS: LISINOPRIL (20MG) 20 MG TABLET PO SCH (08:52)
[2020-11-07] MEDS: ESCITALOPRAM OXALATE (10 MG) 10 MG TABLET PO SCH (08:52)
[2020-11-07] MEDS: ZINC SULFATE 220 MG CAPSULE PO SCH (08:52)
[2020-11-07] MEDS: DOCUSATE SODIUM 100 MG CAPSULE PO SCH (08:52)
[2020-11-07] MEDS: CLOPIDOGREL BISULFATE 75 MG TABLET PO SCH (08:52)
[2020-11-07] MEDS: FERROUS SULFATE (325 MG) 325 MG/TAB TABLET PO SCH ×2 (08:52→16:25)
[2020-11-07] MEDS: PROSOURCE / PROSTAT (PYXIS) 30 ML UDC PO SCH ×3 (08:53→18:01)
[2020-11-07] MEDS: AMLODIPINE BESYLATE 10 MG TABLET PO SCH (08:53)
[2020-11-07] MEDS: Z GUARD REMEDY 2 OZ OINT TP SCH (08:53)
[2020-11-07] MEDS: ASCORBIC ACID 500 MG TABLET PO SCH (08:53)
[2020-11-07] MEDS: IV NS 0.9% 1,000 ML IV SCH ×2 (08:54→22:21)
[2020-11-07] MEDS: DAKINS QUARTER STRENGTH (0.125%) 480 ML BOTTLE TOP SCH (08:54)
[2020-11-07] MEDS ORDERED: POTASSIUM CHLORIDE 20 MEQ TAB.PRT.SR PO ONE (09:00)
--- NOTE | 2020-11-07 09:52 | NUR ---
RN NOTE 0715: Received patient resting. Tolerated room air. No c/o discomfort at this time. VSS. PIV intact, IVF infusing as ordered. Left foot dressing CDI. Kept heels elevated. Afebrile. Condom cath intact, noted clear pale yellow urine drained to BSD. Right side weakness, right arm contracted. 0830: Tolerated am meds but noted with poor appetite, assisted on feeding. 0950: No any significant changes noted. Kept clean, warm and dry.
[2020-11-07] MEDS: CEFTRIAXONE 1 G in IV D5W 50 ML IV SCH (16:25)
[2020-11-07] MEDS: VANCOMYCIN 0.75 GM in IV D5W 250 ML IV SCH (18:01)
--- NOTE | 2020-11-07 18:30 | NUR ---
RN NOTE Transferred patient via bed. VSS. No any significant changes. Kept clean, warm and dry. Needs attended. Endorsed care to Kay RUGGIERO.
--- NOTE | 2020-11-07 19:00 | NUR ---
RECEIVED PATIENT FROM THE ICU. A TRANSFER PATIENT. PATIENT IS ALERT AND ORIENTED X2, PERIODS OF FORGETFULNESS. INFECTED WOUND ON LEFT HEEL. BEDREST. ON ROOM AIR WITH NO DISTRESS NOTED. V/S TAKEN AND RECORDED FOLLOWS BP-124/66, T 98.2, RR-18, P-81 AND 98% O2 SAT. ON SOFT DIET. IV ACCESS ON LEFT UPPER ARM MIDLINE WITH A RUNNING NS @100 CC/HR. SAFETY PRECAUTIONS IN PLACED. BED LOCKED ON LOWEST POSITION, RALES UPX3, CALL LIGHT WITHIN REACH. WILL ENDORSE TO THE NEXT SHIFT FOR CARE.
--- NOTE | 2020-11-07 19:30 | NUR ---
MS/TELE/RN PATIENT IS AWAKE, ALERT, ORIENTED X 2, COMFORTABLE, NO C/O PAIN, NO DISTRESS NOTED, CALL LIGHT IN REACH, WILL MONITOR.
[2020-11-07] MEDS: TAMSULOSIN 0.4 MG CAP.SR.24H PO SCH (22:22)
[2020-11-07] MEDS: MAGNESIUM OXIDE 400 MG TABLET PO SCH (22:22)
[2020-11-07] MEDS: risperiDONE 1 MG TABLET PO SCH (22:22)
--- NOTE | 2020-11-07 23:00 | NUR ---
MS/TELE/RN PATIENT IS SLEEPING AT THIS TIME, APPEAR COMFORTABLE, NO SIGNS OF DISTRESS NOTED, CALL LIGHT IN REACH, WILL CONTINUE TO MONITOR.
[2020-11-08] MEDS: IV NS 0.9% 1,000 ML IV SCH ×2 (05:30→15:36)
[2020-11-08] MEDS ORDERED: BUPIVACAINE MPF 0.5% W/EPI INJ 30 ML VIAL ONE (06:54)
[2020-11-08] MEDS ORDERED: LIDOCAINE 1% INJ 50 ML MDV IJ ONE (06:54)
[2020-11-08] MEDS ORDERED: ANESTHESIA TRAY IN PYXIS 1 EA TRAY MC ONE (06:54)
[2020-11-08] MEDS ORDERED: BACITRACIN 50000 UNITS/VIAL ONE (06:55)
--- NOTE | 2020-11-08 07:00 | NUR ---
MS/TELE/RN PATIENT IS SLEEPING AT THIS TIME, APPEAR COMFORTABLE, NO DISTRESS NOTED, NPO POST MIDNIGHT. PER DIET ATTENDANT KAJAL, AN ORDER OF THE SURGERY NEEDS TO BE ORDERED IN THE COMPUTER, SENT A MESSAGE TO DR. LAWSON FOR ORDER, NO REPLY YET AT THIS TIME, ENDORSED TO NEXT RN. ALL NEEDS ATTENDED AT THIS TIME.WILL CONTINUE TO MONITOR.
[2020-11-08 07:15] LABS: CALCIUM, SERUM 7.4 mg/dL (8.5-10.1); CREATININE 1.2 mg/dL (0.6-1.3); POTASSIUM 3.7 mmol/L (3.5-5.1)
[2020-11-08 08:00] VITALS: BP 140/70
--- NOTE | 2020-11-08 08:00 | NUR ---
RN OPENING NOTE PT AWAKE IN BED. A/O X1 CONFUSED AND MAORI SPEAKING. NO COMPLAINT OF PAIN PRESENT. NO COMPLAINT OF NAUSEA. CURRENTLY ON RA WITH NO SOB OR RESPIRATORY DISTRESS PRESENT. NO CRIBBING SETTER PRESENT. NO EDEMA PRESENT. ON BEDREST WITH CONDOM CATHETER PRESENT. SACRAL WOUND PRESENT. L HEEL ULCER PRESENT. IV PRESENT ON LILIBETH MIDLINE AND FLUSHES WELL. KEPT NPO FOR UPCOMING PROCEDURE. LABS REVIEWED. SAFETY MEASURES IN PLACE. SIDE RAILS RAISED. BED LOWERED. CALL LIGHT WITHIN REACH. WILL CONTINUE TO MONITOR.
[2020-11-08] MEDS: BLOOD SUGAR DIAGNOSTIC 1 EACH STRIP IN SCH (08:09)
[2020-11-08] MEDS ORDERED: BUPIVACAINE 0.5 % PF 150 MG/30 ML VIAL ONE (08:10)
[2020-11-08] MEDS: AMLODIPINE BESYLATE 10 MG TABLET PO SCH (08:18)
[2020-11-08] MEDS: ESCITALOPRAM OXALATE (10 MG) 10 MG TABLET PO SCH (08:18)
[2020-11-08] MEDS: LISINOPRIL (20MG) 20 MG TABLET PO SCH (08:18)
[2020-11-08] MEDS: CLOPIDOGREL BISULFATE 75 MG TABLET PO SCH (08:18)
[2020-11-08] MEDS: FERROUS SULFATE (325 MG) 325 MG/TAB TABLET PO SCH ×2 (08:18→16:40)
[2020-11-08] MEDS: DOCUSATE SODIUM 100 MG CAPSULE PO SCH (08:18)
[2020-11-08] MEDS: ASPIRIN 81 MG TAB.CHEW PO SCH (08:18)
[2020-11-08] MEDS: ASCORBIC ACID 500 MG TABLET PO SCH (08:19)
[2020-11-08] MEDS: PROSOURCE / PROSTAT (PYXIS) 30 ML UDC PO SCH ×3 (08:19→16:40)
[2020-11-08] MEDS: ZINC SULFATE 220 MG CAPSULE PO SCH (08:19)
[2020-11-08] MEDS: DAKINS QUARTER STRENGTH (0.125%) 480 ML BOTTLE TOP SCH (08:36)
[2020-11-08] MEDS: Z GUARD REMEDY 2 OZ OINT TP SCH (08:41)
[2020-11-08] MEDS: CEFTRIAXONE 1 G in IV D5W 50 ML IV SCH (14:45)
[2020-11-08] MEDS: VANCOMYCIN 0.75 GM in IV D5W 250 ML IV SCH (17:01)
--- NOTE | 2020-11-08 18:18 | NUR ---
RN CLOSING NOTE PT AWAKE IN BED. A/O X1 CONFUSED AND BELGIAN SPEAKING. NO COMPLAINT OF PAIN PRESENT. NO COMPLAINT OF NAUSEA. CURRENTLY ON RA WITH NO SOB OR RESPIRATORY DISTRESS PRESENT. NO COLLEGE ASSOCIATE PRESENT. NO EDEMA PRESENT. ON BEDREST WITH CONDOM CATHETER PRESENT. SACRAL WOUND PRESENT. L HEEL ULCER PRESENT. WOUND CARE TO BE DONE BY MD. WOUND VAC PRESENT. IV PRESENT ON LILIBETH MIDLINE AND FLUSHES WELL. ROUTINE MEDS GIVEN. LABS REVIEWED. SAFETY MEASURES IN PLACE. SIDE RAILS RAISED. BED LOWERED. CALL LIGHT WITHIN REACH. REPORT TO BE GIVEN TO NIGHT NURSE FOR KINZA.
--- NOTE | 2020-11-08 19:31 | NUR ---
MS RN NOTES PT RECEIVED AWAKE IN BED. A/O X1 CONFUSED. NO COMPLAINT OF PAIN PRESENT. NO COMPLAINT OF NAUSEA. CURRENTLY ON RA WITH NO SOB OR RESPIRATORY DISTRESS PRESENT. NO CHOIR LEADER PRESENT. NO EDEMA PRESENT. ON BEDREST WITH CONDOM CATHETER PRESENT INTACT. SACRAL WOUND PRESENT. L HEEL ULCER PRESENT. WOUND CARE TO BE DONE BY MD. WOUND VAC PRESENT RUNNING @ 125. IV PRESENT ON LILIBETH MIDLINE AND FLUSHES WELL. SAFETY MEASURES IN PLACE. SIDE RAILS RAISED. BED LOWERED. CALL LIGHT WITHIN REACH.WILL CONTINUE TO MONITOR.
[2020-11-08 19:51] VITALS: BP 125/66
[2020-11-08] MEDS: TAMSULOSIN 0.4 MG CAP.SR.24H PO SCH (21:29)
[2020-11-08] MEDS: MAGNESIUM OXIDE 400 MG TABLET PO SCH (21:29)
[2020-11-08] MEDS: risperiDONE 1 MG TABLET PO SCH (21:29)
--- NOTE | 2020-11-09 06:35 | NUR ---
MS RN NOTES PT AWAKE IN BED. A/O X1 CONFUSED. NO COMPLAINT OF PAIN PRESENT. NO COMPLAINT OF NAUSEA. CURRENTLY ON RA WITH NO SOB OR RESPIRATORY DISTRESS PRESENT. NO ORTHODONTIST VICE PRESIDENT PRESENT. NO EDEMA PRESENT. ON BEDREST WITH CONDOM CATHETER PRESENT INTACT. SACRAL WOUND PRESENT. L HEEL ULCER PRESENT.. WOUND VAC PRESENT RUNNING @ 125. IV PRESENT ON LILIBETH MIDLINE AND FLUSHES WELL. SAFETY MEASURES IN PLACE. SIDE RAILS RAISED. BED LOWERED. CALL LIGHT WITHIN REACH.WILL ENDORSE TO DAY SHIFT NURSE.. Addendum: 11/09/20 at 0707 by DEVENDRA PATTERSON RN 100ML OUTPUT WOUND VAC
[2020-11-09] MEDS: BLOOD SUGAR DIAGNOSTIC 1 EACH STRIP IN SCH (06:45)
[2020-11-09 07:26] LABS: CALCIUM, SERUM 7.5 mg/dL (8.5-10.1); CREATININE 1.2 mg/dL (0.6-1.3); POTASSIUM 3.4 mmol/L (3.5-5.1)
--- NOTE | 2020-11-09 07:37 | NUR ---
MS/RN OPENING NOTES RECEIVED PATIENT ON BED AWAKE ALERT AND ORIENTED X1-2 CONFUSED. PATIENT IS ON ROOM AIR SATURATING WILL. PATIENT IN NO APPARENT RESPIRATORY DISTRESS NOTED. NO SIGN AND SYMPTOM OF PAIN AT THIS TIME. WILL CONTINUE TO MONITOR.
[2020-11-09] MEDS: POTASSIUM CL. PREMIX PERIPHER. 50 ML IV SCH ×2 (08:22→10:36)
[2020-11-09] MEDS: ASPIRIN 81 MG TAB.CHEW PO SCH (08:57)
[2020-11-09] MEDS: ASCORBIC ACID 500 MG TABLET PO SCH (08:58)
[2020-11-09] MEDS: ZINC SULFATE 220 MG CAPSULE PO SCH (08:58)
[2020-11-09] MEDS: DOCUSATE SODIUM 100 MG CAPSULE PO SCH (08:58)
[2020-11-09] MEDS: CLOPIDOGREL BISULFATE 75 MG TABLET PO SCH (08:58)
[2020-11-09] MEDS: AMLODIPINE BESYLATE 10 MG TABLET PO SCH (09:00)
[2020-11-09] MEDS: ESCITALOPRAM OXALATE (10 MG) 10 MG TABLET PO SCH (09:01)
[2020-11-09] MEDS: LISINOPRIL (20MG) 20 MG TABLET PO SCH (09:03)
[2020-11-09] MEDS: FERROUS SULFATE (325 MG) 325 MG/TAB TABLET PO SCH ×2 (09:04→17:56)
[2020-11-09] MEDS: PROSOURCE / PROSTAT (PYXIS) 30 ML UDC PO SCH ×3 (09:06→17:56)
[2020-11-09] MEDS: CEFTRIAXONE 1 G in IV D5W 50 ML IV SCH (15:12)
[2020-11-09] MEDS ORDERED: ZOLPIDEM TARTRATE 5 MG TABLET PO PRN (16:30)
[2020-11-09] MEDS: Z GUARD REMEDY 2 OZ OINT TP SCH (16:53)
[2020-11-09] MEDS: VANCOMYCIN 0.75 GM in IV D5W 250 ML IV SCH (18:00)
--- NOTE | 2020-11-09 19:29 | NUR ---
MS/RN CLOSING NOTE PATIENT IN BED. AWAKE ALERT AND ORIENTED X1-2, CONFUSED AND DANISH SPEAKING. PATIENT IS ON ROOM AIR SATURATING WELL. NO APPARENT RESPIRATORY DISTRESS NOTED. CONDOM CATHETER PRESENT. SACRAL WOUND PRESENT. IV ACCESS ON LILIBETH MIDLINE INTACT AND PATENT. SEEN AND EXAMINED BY MD WITH ORDERS MADE CARRIED OUT ALL DUE MEDICATIONS WAS GIVEN. SAFETY MEASURES IN PLACE. SIDE RAILS RAISED. BED LOWERED. CALL LIGHT WITHIN REACH. WILL ENDORSED TO NIGHT NURSE FOR KINZA.
--- NOTE | 2020-11-09 19:40 | NUR ---
MS RN NOTES PT RECEIVED AWAKE IN BED. A/O X1 CONFUSED. NO COMPLAINT OF PAIN PRESENT. NO COMPLAINT OF NAUSEA. CURRENTLY ON RA WITH NO SOB OR RESPIRATORY DISTRESS PRESENT. ON BEDREST WITH CONDOM CATHETER PRESENT INTACT. SACRAL WOUND PRESENT. L HEEL ULCER PRESENT WOUND VAC PRESENT RUNNING @ 125. IV PRESENT ON LILIBETH MIDLINE AND FLUSHES WELL. SAFETY MEASURES IN PLACE. SIDE RAILS RAISED. BED LOWERED. CALL LIGHT WITHIN REACH.WILL CONTINUE TO MONITOR.
[2020-11-09 20:00] VITALS: BP 120/74
[2020-11-09] MEDS: MAGNESIUM OXIDE 400 MG TABLET PO SCH (21:47)
[2020-11-09] MEDS: risperiDONE 1 MG TABLET PO SCH (21:47)
[2020-11-09] MEDS: TAMSULOSIN 0.4 MG CAP.SR.24H PO SCH (21:47)
[2020-11-10] MEDS: VANCOMYCIN 500 MG in IV D5W 100 ML IV SCH (02:25)
--- NOTE | 2020-11-10 06:44 | NUR ---
MS RN NOTES PT IN BED AWAKE IN BED. A/O X1 CONFUSED. NO COMPLAINT OF PAIN PRESENT. NO COMPLAINT OF NAUSEA. CURRENTLY ON RA WITH NO SOB OR RESPIRATORY DISTRESS PRESENT. ON BEDREST WITH CONDOM CATHETER PRESENT INTACT. SACRAL WOUND PRESENT. L HEEL ULCER PRESENT WOUND VAC PRESENT RUNNING @ 125. IV PRESENT ON LILIBETH MIDLINE AND FLUSHES WELL. SAFETY MEASURES IN PLACE. SIDE RAILS RAISED. BED LOWERED. CALL LIGHT WITHIN REACH.WILL ENDORSE CARE TO DAY SHIFT NURSE.
[2020-11-10] MEDS: BLOOD SUGAR DIAGNOSTIC 1 EACH STRIP IN SCH (06:50)
[2020-11-10 07:32] LABS: BASOPHILS # (AUTO) 0.1 /CMM (0.0-0.2); BASOPHILS % (AUTO) 1.2 % (0.0-2.0); EOSINOPHILS % (AUTO) 2.6 % (0.0-6.0); LYMPHOCYTES # (AUTO) 0.9 /CMM (0.8-4.8); LYMPHOCYTES % (AUTO) 17.7 % (20.0-44.0); MEAN CORPUSCULAR HGB CONC 33 g/dl (31.0-36.0); MEAN CORPUSCULAR VOLUME 85 fL (80-96); MONOCYTES # (AUTO) 0.5 /CMM (0.1-1.30); MONOCYTES % (AUTO) 9.3 % (2.0-12.0); NEUTROPHILS # (AUTO) 3.7 /CMM (1.8-8.9); NEUTROPHILS % (AUTO) 69.2 % (43.0-81.0); PLATELET COUNT (AUTO) 102 /CMM (150-450); RED BLOOD CELL COUNT(AUTO) 2.32 MIL/uL (4.5-6.0); WHITE BLOOD COUNT (AUTO) 5.3 K/uL (4.3-11.0)
[2020-11-10 07:39] LABS: HEMOGLOBIN 6.4 g/dL (13.5-17.5)
[2020-11-10 07:40] LABS: HEMATOCRIT 20 % (39-51)
--- NOTE | 2020-11-10 07:44 | NUR ---
MS/RN OPENING NOTES RECEIVED PATIENT ON BED AWAKE ALERT AND ORIENTED X1-2 CONFUSED. PATIENT IS ON ROOM AIR SATURATING WILL. PATIENT IN NO APPARENT RESPIRATORY DISTRESS NOTED. NO SIGN AND SYMPTOM OF PAIN AT THIS TIME. NICOLAS FROM LABORATORY REPORTED HGB 6.4 HCT 20 MD WAS AWARE NO NEW ORDER AT THIS TIME. WILL CONTINUE TO MONITOR.
[2020-11-10 08:21] LABS: ALBUMIN 1.7 g/dL (3.4-5.0); BILIRUBIN,TOTAL 0.3 mg/dL (0.2-1.0); CALCIUM, SERUM 7.7 mg/dL (8.5-10.1); CREATININE 1.2 mg/dL (0.6-1.3); MAGNESIUM 1.8 mg/dL (1.8-2.4); PHOSPHORUS 1.8 mg/dL (2.5-4.9); TOTAL PROTEIN, SERUM 5.5 g/dL (6.4-8.2)
[2020-11-10] MEDS: DOCUSATE SODIUM 100 MG CAPSULE PO SCH (08:21)
[2020-11-10] MEDS: ASPIRIN 81 MG TAB.CHEW PO SCH (08:21)
[2020-11-10] MEDS: ZINC SULFATE 220 MG CAPSULE PO SCH (08:21)
[2020-11-10] MEDS: ESCITALOPRAM OXALATE (10 MG) 10 MG TABLET PO SCH (08:22)
[2020-11-10] MEDS: CLOPIDOGREL BISULFATE 75 MG TABLET PO SCH (08:23)
[2020-11-10] MEDS: ASCORBIC ACID 500 MG TABLET PO SCH (08:23)
[2020-11-10] MEDS: FERROUS SULFATE (325 MG) 325 MG/TAB TABLET PO SCH ×2 (08:23→17:05)
[2020-11-10] MEDS: PROSOURCE / PROSTAT (PYXIS) 30 ML UDC PO SCH ×3 (08:42→17:05)
[2020-11-10] MEDS: Z GUARD REMEDY 2 OZ OINT TP SCH (08:43)
[2020-11-10 08:51] LABS: BAND % (MANUAL) 1 % (0.0-5.0); EOSINOPHILS % (MANUAL) 2 % (0-4); LYMPHOCYTES % (MANUAL) 14 % (16-48); METAMYELOCYTES % 1 % (0-0); MONOCYTES % (MANUAL) 6 % (0-11.0); MYELOCYTES % 1 % (0-0); NEUTROPHILS % (MANUAL) 75 (42-76)
[2020-11-10] MEDS: LISINOPRIL (20MG) 20 MG TABLET PO SCH (08:51)
[2020-11-10] MEDS: AMLODIPINE BESYLATE 10 MG TABLET PO SCH (08:51)
[2020-11-10] MEDS ORDERED: K PHOS NEUTRAL 250 MG TABLET PO ONE (12:30)
[2020-11-10] MEDS: CEFTRIAXONE 1 G in IV D5W 50 ML IV SCH (15:30)
[2020-11-10 15:33] LABS: BASOPHILS # (AUTO) 0.1 /CMM (0.0-0.2); EOSINOPHILS % (AUTO) 2.9 % (0.0-6.0); LYMPHOCYTES # (AUTO) 1.1 /CMM (0.8-4.8); MEAN CORPUSCULAR HGB CONC 32 g/dl (31.0-36.0); MEAN CORPUSCULAR VOLUME 86 fL (80-96); MONOCYTES # (AUTO) 0.5 /CMM (0.1-1.30); MONOCYTES % (AUTO) 9.7 % (2.0-12.0); NEUTROPHILS # (AUTO) 3.3 /CMM (1.8-8.9); NEUTROPHILS % (AUTO) 65.4 % (43.0-81.0); PLATELET COUNT (AUTO) 94 /CMM (150-450); RED BLOOD CELL COUNT(AUTO) 2.31 MIL/uL (4.5-6.0); WHITE BLOOD COUNT (AUTO) 5.1 K/uL (4.3-11.0)
[2020-11-10 15:49] LABS: HEMATOCRIT 20 % (39-51); HEMOGLOBIN 6.4 g/dL (13.5-17.5)
[2020-11-10 16:15] LABS: BAND % (MANUAL) 1 % (0.0-5.0); EOSINOPHILS % (MANUAL) 5 % (0-4); LYMPHOCYTES % (MANUAL) 20 % (16-48); MONOCYTES % (MANUAL) 4 % (0-11.0); NEUTROPHILS % (MANUAL) 70 (42-76)
--- NOTE | 2020-11-10 19:33 | NUR ---
MS/RN CLOSING NOTE PATIENT IN BED. AWAKE ALERT AND ORIENTED X1-2, CONFUSED AND SINHALA SPEAKING. PATIENT IS ON ROOM AIR SATURATING WELL. NO APPARENT RESPIRATORY DISTRESS NOTED. CONDOM CATHETER PRESENT. SACRAL WOUND PRESENT. IV ACCESS ON LILIBETH MIDLINE INTACT AND PATENT. SEEN AND EXAMINED BY MD WITH ORDERS MADE CARRIED OUT ALL DUE MEDICATIONS WAS GIVEN. SAFETY MEASURES IN PLACE. SIDE RAILS RAISED. BED LOWERED. CALL LIGHT WITHIN REACH. WILL ENDORSED TO NIGHT NURSE FOR KINZA
[2020-11-10 20:21] VITALS: BP 136/78
[2020-11-10 21:12] VITALS: BP 136/78
[2020-11-10 21:46] VITALS: BP 147/77
[2020-11-10] MEDS: TAMSULOSIN 0.4 MG CAP.SR.24H PO SCH (22:02)
[2020-11-10] MEDS: MAGNESIUM OXIDE 400 MG TABLET PO SCH (22:02)
[2020-11-10] MEDS: risperiDONE 1 MG TABLET PO SCH (22:02)
[2020-11-10 22:06] VITALS: BP 154/82
[2020-11-10 23:00] VITALS: BP 136/77
[2020-11-11 01:00] VITALS: BP 136/78
[2020-11-11] MEDS: VANCOMYCIN 500 MG in IV D5W 100 ML IV SCH (03:26)
--- NOTE | 2020-11-11 05:03 | NUR ---
PT IN BED [facility] CONTACT WHEN HE DOES SPEAKK IT IS CLEAR AND WILL MAKE HIS NEEDS KNOWN GIVEN 1 UNIT prbcS ORDERED W/O PROBLEM INCONTINENT URINE PHOTO OF THE STG2 ON THE BUTTOCK TAKEN AND PLACED IN THE CHART RIGHT ARM CONTRACTED NOT OPENED THE DRESSING ON THE RIGHT LOWER LEG TOLD NOT TO BY THE DAY SHIFT NURSE WOUND VAC IN PLACE TO BE CHANGED THIS AM
[2020-11-11] MEDS: BLOOD SUGAR DIAGNOSTIC 1 EACH STRIP IN SCH (06:25)
[2020-11-11 07:00] LABS: BASOPHILS # (AUTO) 0.1 /CMM (0.0-0.2); BASOPHILS % (AUTO) 1.2 % (0.0-2.0); EOSINOPHILS % (AUTO) 3.3 % (0.0-6.0); HEMATOCRIT 24 % (39-51); HEMOGLOBIN 7.7 g/dL (13.5-17.5); LYMPHOCYTES # (AUTO) 1.3 /CMM (0.8-4.8); LYMPHOCYTES % (AUTO) 18.3 % (20.0-44.0); MEAN CORPUSCULAR HGB CONC 32 g/dl (31.0-36.0); MEAN CORPUSCULAR VOLUME 86 fL (80-96); MONOCYTES # (AUTO) 0.6 /CMM (0.1-1.30); MONOCYTES % (AUTO) 8.5 % (2.0-12.0); NEUTROPHILS # (AUTO) 4.8 /CMM (1.8-8.9); NEUTROPHILS % (AUTO) 68.7 % (43.0-81.0); PLATELET COUNT (AUTO) 115 /CMM (150-450); RED BLOOD CELL COUNT(AUTO) 2.76 MIL/uL (4.5-6.0)
[2020-11-11 07:37] LABS: CALCIUM, SERUM 7.8 mg/dL (8.5-10.1); CREATININE 1.2 mg/dL (0.6-1.3); MAGNESIUM 1.7 mg/dL (1.8-2.4); PHOSPHORUS 2.6 mg/dL (2.5-4.9); POTASSIUM 3.8 mmol/L (3.5-5.1)
[2020-11-11 08:00] VITALS: BP 137/78
[2020-11-11] MEDS: Z GUARD REMEDY 2 OZ OINT TP SCH (09:00)
[2020-11-11] MEDS: PROSOURCE / PROSTAT (PYXIS) 30 ML UDC PO SCH ×3 (09:00→17:00)
[2020-11-11] MEDS: ASPIRIN 81 MG TAB.CHEW PO SCH (09:09)
[2020-11-11] MEDS: ASCORBIC ACID 500 MG TABLET PO SCH (09:09)
[2020-11-11] MEDS: DOCUSATE SODIUM 100 MG CAPSULE PO SCH (09:09)
[2020-11-11] MEDS: LISINOPRIL (20MG) 20 MG TABLET PO SCH (09:11)
[2020-11-11] MEDS: CLOPIDOGREL BISULFATE 75 MG TABLET PO SCH (09:11)
[2020-11-11] MEDS: AMLODIPINE BESYLATE 10 MG TABLET PO SCH (09:12)
[2020-11-11] MEDS: ESCITALOPRAM OXALATE (10 MG) 10 MG TABLET PO SCH (09:12)
[2020-11-11] MEDS: ZINC SULFATE 220 MG CAPSULE PO SCH (09:12)
[2020-11-11] MEDS: FERROUS SULFATE (325 MG) 325 MG/TAB TABLET PO SCH ×2 (09:18→17:00)
[2020-11-11] MEDS: HYDROGEL DRESSING 90 GM TUBE TP SCH (10:30)
[2020-11-11] MEDS: Magnesium 1GM/D5W 100ML PREMIX 100 ML IV SCH ×2 (10:35→11:27)
[2020-11-11] MEDS: HYDROCODONE/APAP 5/325MG TABLET PO PRN ×2 (10:35→14:55)
--- NOTE | 2020-11-11 10:37 | NUR ---
WOUND CARE CONSULT: PT SEEN FOR WOUND VAC DRESSING CHANGE TO LEFT HEEL. SKIN PREP AND VAC DRAPE APPLIED TO PERIWOUND AREAS, GRANUFOAM APPLIED USING BRIDGING TECHNIQUE. WOUND MEASURES 7CM X 7CM X 0.5CM WITH RED GRANULATION TISSUE AND SLIGHTLY MACERATED PERIWOUND AREA. 125cc RED DRAINAGE IN CANISTER. CANISTER WAS CHANGED. THERE WAS DRIED BLOOD ON KERLIX WHEN PREVIOUS DRESSING WAS REMOVED. DR LAWSON AWARE. VAC AT 125mmHg CONTINUOUS SETTING. PT TOLERATED WELL. HEELS FLOATED. ORDERS RECEIVED FOR DRESSING CHANGE WHEN PT IS DISCHARGED FROM HOSPITAL. DISCUSSED WITH NURSING STAFF. Addendum: 11/11/20 at 1041 by JONO ESCAMILLA WNDNU Amended: Links added.
--- NOTE | 2020-11-11 11:29 | NUR ---
Received notification from [facility]: pt's wound culture from 11/08/[address] for MRSA[address] Notfied Dr Hermosillo via phone, no new orders. Pt is already receiving the appropriate antibiotics via IV. Notified tapper hand (wound vac dressing change done this am by tapper hand).
[2020-11-11] MEDS: CEFTRIAXONE 1 G in IV D5W 50 ML IV SCH (15:44)
[2020-11-11 16:00] VITALS: BP 131/78
--- NOTE | 2020-11-11 19:30 | NUR ---
MS RN OPENING PATIENT IN BED WATCHING TELEVISION. A/OX2. NO S/S OF DISTRESS. NO C/O PAIN AT THIS TIME. IV NS RUNNING TKO. WOUND VAC NOTED IN PLACE. SAFETY IN PLACE: BED IN LOWEST, LOCKED POSITION; CALL LIGHT WITHIN REACH, CONTACT PRECAUTION IN PLACE. WILL CONTINUE TO MONITOR.
[2020-11-11 20:00] VITALS: BP 140/77
[2020-11-11] MEDS: risperiDONE 1 MG TABLET PO SCH (21:03)
[2020-11-11] MEDS: TAMSULOSIN 0.4 MG CAP.SR.24H PO SCH (21:04)
[2020-11-11] MEDS: MAGNESIUM OXIDE 400 MG TABLET PO SCH (21:04)
--- NOTE | 2020-11-11 21:15 | NUR ---
MS RN NOTES PATIENT ASKED FOR AMBIEN FOR SLEEP. GIVEN AMBIEN 5MG PRN. WILL REASSESS.
[2020-11-12] MEDS: VANCOMYCIN 500 MG in IV D5W 100 ML IV SCH (02:30)
[2020-11-12] MEDS: BLOOD SUGAR DIAGNOSTIC 1 EACH STRIP IN SCH (06:27)
--- NOTE | 2020-11-12 06:27 | NUR ---
ms rn notes AC BLOOD SUGAR 107. NO INSULIN.
--- NOTE | 2020-11-12 06:53 | NUR ---
MS RN CLOSING NOTE PATIENT IN BED. A/OX4. WOUND VAC IN PLACE RUNNING CONTINUOUSLY @ 125 MM/HG. NO S/S OF APPARENT DISTRESS. NO C/O OF PAIN. AC ACCUCHECK DONE. DRESSING CLEAN, DRY, AND INTACT. ALL NEEDS ATTENDED. SAFETY KEPT IN PLACE THE WHOLE SHIIFT: BED IN LOWEST, LOCKED POSITION; CALL LIGHT WITHIN REACH, CONTACT PRECAUTION IN PLACE. NO SIGNIFICANT CHANGE SINCE LAST SHIFT. WILL ENDORSE CARE TO AM SHIFT RN.
--- NOTE | 2020-11-12 07:10 | NUR ---
WOUND CARE FOLLOW UP: PT HAS KCI VAC TO LEFT HEEL WOUND. VAC FUNCTIONING WELL AT 125mmHg CONTINUOUS SETTING, NO DRAINAGE NOTED IN CANISTER. DISCUSSED SKIN PROTECTION WITH NURSING STAFF. ORDERS RECEIVED FOR WOUND CARE UPON PT DISCHARGE FROM HOSPITAL AND DISCUSSED WITH NURSING STAFF. Addendum: 11/12/20 at 0747 by JONO ESCAMILLA WNDNU PT ALSO SEEN FOR RE-EVALUATION OF SACRUM AND BUTTOCKS. PT NOTED TO HAVE INCONTINENCE ASSOCIATED SKIN DAMAGE OVER PREVIOUS SACRAL SCARRING, PRESENT ON ADMISSION. SOME RASH WITH PEELING SKIN NOTED TO PERINEUM AND LOWER BUTTOCKS. RECOMMENDATIONS MADE FOR SKIN PROTECTION. DISCUSSED WITH NURSING STAFF. IN AGREEMENT WITH PLAN OF CARE.
[2020-11-12 07:14] LABS: CALCIUM, SERUM 7.9 mg/dL (8.5-10.1); CREATININE 1.2 mg/dL (0.6-1.3); MAGNESIUM 2.3 mg/dL (1.8-2.4); POTASSIUM 4.2 mmol/L (3.5-5.1)
[2020-11-12 08:00] VITALS: BP 130/73
[2020-11-12] MEDS: HYDROGEL DRESSING 90 GM TUBE TP SCH ×2 (09:00→16:34)
[2020-11-12] MEDS ORDERED: CLOTRIMAZOLE 1% 15 GM TUBE TP SCH (09:00)
[2020-11-12] MEDS: ESCITALOPRAM OXALATE (10 MG) 10 MG TABLET PO SCH (09:03)
[2020-11-12] MEDS: ASPIRIN 81 MG TAB.CHEW PO SCH (09:03)
[2020-11-12] MEDS: LISINOPRIL (20MG) 20 MG TABLET PO SCH (09:03)
[2020-11-12] MEDS: CLOPIDOGREL BISULFATE 75 MG TABLET PO SCH (09:04)
[2020-11-12] MEDS: DOCUSATE SODIUM 100 MG CAPSULE PO SCH (09:04)
[2020-11-12] MEDS: ZINC SULFATE 220 MG CAPSULE PO SCH (09:04)
[2020-11-12] MEDS: ASCORBIC ACID 500 MG TABLET PO SCH (09:04)
[2020-11-12] MEDS: AMLODIPINE BESYLATE 10 MG TABLET PO SCH (09:04)
[2020-11-12] MEDS: FERROUS SULFATE (325 MG) 325 MG/TAB TABLET PO SCH (09:04)
--- NOTE | 2020-11-12 09:05 | NUR ---
Hydrogel Not given due to Wound Vac remains on L foot, no leakage, pt will need hydrogel only when being discharged and wound vac removed per orders.
[2020-11-12] MEDS: PROSOURCE / PROSTAT (PYXIS) 30 ML UDC PO SCH ×2 (09:06→12:39)
[2020-11-12] MEDS: Z GUARD REMEDY 2 OZ OINT TP SCH (09:06)
[2020-11-12] MEDS ORDERED: Hydrogel Dressing TP (10:27)
[2020-11-12] MEDS ORDERED: ESCI10TA PO (10:27)
[2020-11-12] MEDS ORDERED: CLOP75TA15 PO (10:27)
[2020-11-12] MEDS ORDERED: VANC1VIA34 IV (10:27)
[2020-11-12] MEDS: CEFTRIAXONE 1 G in IV D5W 50 ML IV SCH (14:25)
[2020-11-12] MEDS: HYDROCODONE/APAP 5/325MG TABLET PO PRN (15:46)
[2020-11-12 16:00] VITALS: BP 144/91
--- NOTE | 2020-11-12 17:02 | NUR ---
Pt discharged back to SNF via ambulance. L foot wound vac removed and dressed per orders with hydrogel, NS gauze, mepelex, abd pad and wrapped in kerlex. Midline IV removed. Discharge paperwork reviewed with pt and report given to ambulance service personnel. Pt departed unit via gurney at 1650.
== END 2020-11-12 17:00 | DRG 853 ==
LOC: ER 10:50 → MEDSG1 13:37 → ICU 11-06 09:25 → MED 11-07 18:22
PROVIDERS: ADMIT Legal Medicine; ATTEND Legal Medicine
PROC: 05HA33Z Insertion of Infusion Device into Left Brachial Vein, Percutaneous Approach (ICD-10-PCS; 2020-10-23)
PROC: 0QBM0ZZ Excision of Left Tarsal, Open Approach (ICD-10-PCS; principal; 2020-10-24)
PROC: 0QBM0ZZ Excision of Left Tarsal, Open Approach (ICD-10-PCS; 2020-10-25)
PROC: 0QBM0ZZ Excision of Left Tarsal, Open Approach (ICD-10-PCS; 2020-10-30)
PROC: 047Q3ZZ Dilation of Left Anterior Tibial Artery, Percutaneous Approach (ICD-10-PCS; 2020-11-06)
PROC: 047U3ZZ Dilation of Left Peroneal Artery, Percutaneous Approach (ICD-10-PCS; 2020-11-06)
PROC: B41FYZZ Fluoroscopy of Right Lower Extremity Arteries using Other Contrast (ICD-10-PCS; 2020-11-06)
PROC: B410YZZ Fluoroscopy of Abdominal Aorta using Other Contrast (ICD-10-PCS; 2020-11-06)
PROC: B41GYZZ Fluoroscopy of Left Lower Extremity Arteries using Other Contrast (ICD-10-PCS; 2020-11-06)
PROC: 0QBM0ZZ Excision of Left Tarsal, Open Approach (ICD-10-PCS; 2020-11-08)
PROC: 05HC33Z Insertion of Infusion Device into Left Basilic Vein, Percutaneous Approach (ICD-10-PCS; 2020-11-10)
DX: A41.9 Sepsis, unspecified organism (principal); G93.41 Metabolic encephalopathy; R53.2 Functional quadriplegia; N17.0 Acute kidney failure with tubular necrosis; M86.8X7 Other osteomyelitis, ankle and foot; L97.429 Non-pressure chronic ulcer of left heel and midfoot with unspecified severity; L03.116 Cellulitis of left lower limb; I69.351 Hemiplegia and hemiparesis following cerebral infarction affecting right dominant side; E11.69 Type 2 diabetes mellitus with other specified complication; R65.20 Severe sepsis without septic shock; E11.22 Type 2 diabetes mellitus with diabetic chronic kidney disease; E11.621 Type 2 diabetes mellitus with foot ulcer; I25.10 Atherosclerotic heart disease of native coronary artery without angina pectoris; I12.9 Hypertensive chronic kidney disease with stage 1 through stage 4 chronic kidney disease, or unspecified chronic kidney disease; E11.51 Type 2 diabetes mellitus with diabetic peripheral angiopathy without gangrene; N18.9 Chronic kidney disease, unspecified; E78.5 Hyperlipidemia, unspecified; E55.9 Vitamin D deficiency, unspecified; F41.9 Anxiety disorder, unspecified; D50.9 Iron deficiency anemia, unspecified; G89.29 Other chronic pain; H26.9 Unspecified cataract; Z79.82 Long term (current) use of aspirin; Z79.899 Other long term (current) drug therapy; Z79.84 Long term (current) use of oral hypoglycemic drugs; E11.40 Type 2 diabetes mellitus with diabetic neuropathy, unspecified; F03.90 Unspecified dementia, unspecified severity, without behavioral disturbance, psychotic disturbance, mood disturbance, and anxiety; M85.80 Other specified disorders of bone density and structure, unspecified site; I70.202 Unspecified atherosclerosis of native arteries of extremities, left leg; T44.5X5A Adverse effect of predominantly beta-adrenoreceptor agonists, initial encounter; Y92.129 Unspecified place in nursing home as the place of occurrence of the external cause; N14.1 Nephropathy induced by other drugs, medicaments and biological substances; T50.8X5A Adverse effect of diagnostic agents, initial encounter; N28.89 Other specified disorders of kidney and ureter; R19.09 Other intra-abdominal and pelvic swelling, mass and lump; F25.0 Schizoaffective disorder, bipolar type; N13.9 Obstructive and reflux uropathy, unspecified; Z20.822 Contact with and (suspected) exposure to COVID-19
CPT/HCPCS: 36410; 36415; 71045-TC; 73630-TC; 73718-TC; 75630-TC; 76770-TC; 80048-TC; 80053-TC; 80202-TC; 81001; 82272-TC; 82570-TC; 82728-TC; 82962-TC; 83540-TC; 83605-TC; 83735-TC; 84100-TC; 84155-TC; 84300-TC; 85025-TC; 85027-TC; 85652-TC; 85730-TC; 86140-TC; 86850-TC; 87040-TC; 87070-TC; 87081-TC; 87086-TC; 87186-TC; 88305-TC; 88311-TC; A4349; A6248; A6253; A6402; A6403; A6407; A9563; C1725; C1769; C1887; C1894; C9803; G0378; G0500; J0290; J0696; J1644; J1650; J2250; J2405; J2543; J2704; J3010; J3370; J3475; J3480; J3490; J7030; J7050; J7060; J7070; P9016; Q0162; Q0163; Q9967; U0003

== ENCOUNTER 2021-05-28 11:19 | Inpatient (IN) | payer MEDICARE, OTHER ==
[~2021-05-28] VITALS: Ht 167.6 cm; Wt 69.4 kg
[~2021-05-28 11:19] MED LIST changes: -AMIN887L PO; +ATOR20TA PO; -BLOO-668 IN; +CRAN425C6 PO; +CYCL30DR OP; +ESCI5TAB PO; -FERR325T23 PO; -INSU100V11 SQ; +KRIL1CAP PO; +MELA3TAB41 PO; -NA P133E RC; +RISP0.5T5 PO; -TRAZ-182 PO
--- NOTE | 2021-05-28 12:06 | NUR ---
BIBPA C/O COUGH, WEAKNESS, AND HEAD PRESSURE STARTED YESTERDAY, TESTED COVID POSITIVE YESTERDAY. VITALS ARE WITHIN NORMAL LIMITS.
[2021-05-28] MEDS ORDERED: ACET-2605 PO (12:17)
--- NOTE | 2021-05-28 12:46 | NUR ---
PT TOLERATING R/A WELL AT 100%.VSS PT SIGNED DC PAPER WORK AND VERBALIZED UNDERSTANDING.
--- NOTE | 2021-05-28 12:49 | NUR ---
CALLED [facility] FOR TRANSPORT ETA 60 MINS.
--- NOTE | 2021-05-28 12:55 | NUR ---
SPOKE TO JOSE CARLOS FROM [facility] ADMITTING . FACILITY DOES NOT HAVE COVID UNIT AND IS NOT ACCEPTING PATIENT BACK. NOTIFIED CHARGE NURSE
--- NOTE | 2021-05-28 13:39 | NUR ---
CASE MANAGEMENT NOTES: SARINA FARMER WILL NOTIFY ED SOON SNF ROOM IS AVAILABLE RE: [facility] ROOM FOR COVID. ED CHG RN GENER AWARE.
--- NOTE | 2021-05-28 13:53 | NUR ---
COVID ANTIGEN AND PCR SWAB COLLECTED AND GIVEN TO LAB NARDA
--- NOTE | 2021-05-28 13:57 | NUR ---
CALLED DR. RODGERS
--- NOTE | 2021-05-28 14:16 | NUR ---
PT LAYIGN IN BED COMFORTABLY, VS SSTABLE, AAOX4, NEEDS MET
--- NOTE | 2021-05-28 15:48 | NUR ---
RECEIVED TEL ORDERS FROM DR. RODGERS. THE ORDERS ARE READ BACK, VERIFIED. NOTED AND CARRIED OUT.
[2021-05-28] MEDS ORDERED: DEXTROSE 50%-WATER 50 ML DISP.SYRIN IV PRN (16:00)
[2021-05-28] MEDS: CEFTRIAXONE 1 G in IV D5W 50 ML IV SCH (16:00)
[2021-05-28] MEDS ORDERED: ONDANSETRON HCL/PF 4 MG/2 ML VIAL IV PRN (16:00)
[2021-05-28] MEDS ORDERED: ACETAMINOPHEN 325 MG TABLET PO PRN ×2 (16:00→20:30)
--- NOTE | 2021-05-28 16:11 | NUR ---
PT SITTING IN BED, VS STABLE, NO PRESENT COMPLAINTS
[2021-05-28] MEDS: BLOOD SUGAR DIAGNOSTIC 1 EACH STRIP IN SCH ×2 (17:07→22:54)
[2021-05-28] MEDS: IV D5/ 0.9% NACL 1,000 ML IV PRN (17:07)
[2021-05-28] MEDS: INSULIN REGULAR, HUMAN 100 UNIT/ML 3 ML VIAL SQ PRN ×2 (17:08→22:59)
--- NOTE | 2021-05-28 17:17 | NUR ---
NURSING SUP CALLED BED 109. WAIT 30 MINUTES BEFORE BRINGING UP
[2021-05-28] MEDS ORDERED: FLUD0.1T3 PO (17:27)
[2021-05-28] MEDS ORDERED: EPOE1VIA12 IJ (17:27)
[2021-05-28] MEDS ORDERED: FERR325T23 PO (17:27)
[2021-05-28] MEDS ORDERED: RISP1TAB97 PO (17:27)
[2021-05-28] MEDS ORDERED: DORZ10DR10 OP (17:27)
[2021-05-28] MEDS ORDERED: FOLI0.8T3 PO (17:27)
[2021-05-28] MEDS ORDERED: CLOP75TA15 PO (17:27)
[2021-05-28] MEDS ORDERED: PANT40TA49 PO (17:27)
--- NOTE | 2021-05-28 17:45 | NUR ---
REPORT GIVEN TO BAHMAN HARRY
--- NOTE | 2021-05-28 18:09 | NUR ---
PATIENT TRANSPORTED TO FLOOR USING ACLS PROTOCOL BY EMT AND RN
--- NOTE | 2021-05-28 18:17 | NUR ---
RN NOTE RECEIVE REPORT FROM ED NURSE. PATIENT IN STABLE CONDITION AT TIME OF ARRIVAL. VITAL SIGNS: TEMP; 98.0, HR; 73, RESP 18, O2 98%, BP 117/58. WILL ENDORSE TO NIGHT SHIT NURSE
--- NOTE | 2021-05-28 19:10 | NUR ---
RN NOTES RECEIVED REPORT FROM MORNING RN. PATIENT IN BED A/O X2-3. NOT ON DISTRESS NO SOB NOTED AST THIS TIME. WITH IV ACCESS AT l HAND # 22. WITH ONGOING IVF OF D5NS@75CC/HR TOLERATING WELL. PATIENT IS COVID RAPID POSITIVE. ALL SAFETY MEASURES IN PLACE HOB ELEVATED, CALL LIGHT WITHIN REACH. BED ON LOWEST POSITION AND LOCKED. BODY ASSESSMENT DONE PICTURE TAKEN. WILL CONTINUE TO MONITOR.
[2021-05-28 20:00] VITALS: BP 120/64
[2021-05-28] MEDS ORDERED: hydrALAZINE HCL 25 MG TABLET PO PRN (20:30)
[2021-05-28] MEDS ORDERED: MAGNESIUM HYDROXIDE 30 ML UDC PO PRN (20:30)
[2021-05-28] MEDS ORDERED: HYDROCODONE/APAP 5/325MG TABLET PO PRN (20:30)
[2021-05-28] MEDS ORDERED: BISACODYL SUPP (10 MG) 10 MG/SUPP.RECT SUPP.RECT RC PRN (20:30)
[2021-05-28] MEDS ORDERED: Medication Not On Formulary EA (Melatonin 6 MG) PO SCH (22:00)
--- NOTE | 2021-05-28 22:00 | NUR ---
RN NOTES BS 164MG/DL 3 UNITS REGULAR INSULIN PER SLIDING SCALE GIVEN.
[2021-05-28] MEDS: ENOXAPARIN SODIUM 40 MG/0.4 ML DISP.SYRIN SQ SCH (22:43)
[2021-05-28] MEDS: TAMSULOSIN 0.4 MG CAP.SR.24H PO SCH (22:43)
[2021-05-28] MEDS: risperiDONE 1 MG TABLET PO SCH (22:43)
[2021-05-29 04:00] VITALS: BP 123/74
[2021-05-29 06:37] LABS: CARBON DIOXIDE 22 mmol/L (21-32); CHLORIDE 109 mmol/L (98-107); CREATININE 1.8 mg/dL (0.6-1.3); GLUCOSE 116 mg/dL (74-106); POTASSIUM 3.8 mmol/L (3.5-5.1); SODIUM SERUM 138 mmol/L (136-145); UREA NITROGEN, BLOOD 48 mg/dL (7-18)
[2021-05-29 06:38] LABS: BASOPHILS % (AUTO) 0.4 % (0.0-2.0); EOSINOPHILS % (AUTO) 8.7 % (0.0-6.0); HEMATOCRIT 32 % (39-51); HEMOGLOBIN 10.1 g/dL (13.5-17.5); LYMPHOCYTES # (AUTO) 1.4 K/uL (0.8-4.8); LYMPHOCYTES % (AUTO) 25.1 % (20.0-44.0); MEAN CORPUSCULAR HGB CONC 32 g/dl (31.0-36.0); MEAN CORPUSCULAR VOLUME 82 fL (80-96); MONOCYTES # (AUTO) 0.4 K/uL (0.1-1.30); MONOCYTES % (AUTO) 7.9 % (2.0-12.0); NEUTROPHILS # (AUTO) 3.3 K/uL (1.8-8.9); NEUTROPHILS % (AUTO) 57.9 % (43.0-81.0); PLATELET COUNT (AUTO) 119 K/uL (150-450); RED BLOOD CELL COUNT(AUTO) 3.89 MIL/uL (4.5-6.0); WHITE BLOOD COUNT (AUTO) 5.7 K/uL (4.3-11.0)
--- NOTE | 2021-05-29 06:43 | NUR ---
RN NOTES PATIENT REMAINS IN STABLE CONDITION NO SIGNIFICANT CHANGES IN HEALTH CONDITION. ALL DUE MEDS GIVEN ORDERED. STILL WITH ONGOING IVF @ 75CC/HR TOLERATING WELL. NO SOB NO DISTRESS NO PAIN NOTED THIS SHIFT. ALL NEEDS ATTENDED PROMPTLY. ALL SAFETY MEASURES IN PLACE AT ALL TIMES. HOB ELEVATED. CALL LIGHT WITHIN REACH. BED ON LOWEST POSITION AND LOCKED. ENDORSED.
[2021-05-29] MEDS: IV D5/ 0.9% NACL 1,000 ML IV PRN ×2 (06:48→19:11)
--- NOTE | 2021-05-29 07:51 | NUR ---
RN NOTE PT RECEIVED ASLEEP IN BED, NOT IN RESPIRATORY DISTRESS. RESPONSIVE TO STIMULI. L HAND MED LOCK G22 IN PLACE, WITH IVF D5NS @75CC/HR. ALL SAFETY MEASURES FOLLOWED. WILL CONTINUE TO MONITOR.
[2021-05-29] MEDS: DORZOLAMIDE OPTH 2% 10 ML BOTTLE OP SCH ×2 (08:25→16:38)
[2021-05-29] MEDS: FOLIC ACID 1 MG TABLET PO SCH (08:26)
[2021-05-29] MEDS: PANTOPRAZOLE 40 MG TABLET.DR PO SCH (08:26)
[2021-05-29] MEDS: CLOPIDOGREL BISULFATE 75 MG TABLET PO SCH (08:26)
[2021-05-29] MEDS: ASPIRIN 81 MG TAB.CHEW PO SCH (08:26)
[2021-05-29] MEDS: FERROUS SULFATE (325 MG) 325 MG/TAB TABLET PO SCH ×3 (08:26→16:28)
[2021-05-29] MEDS: FLUDROCORTISONE 0.1 MG TABLET PO SCH (08:26)
[2021-05-29] MEDS: ESCITALOPRAM OXALATE (10 MG) 10 MG TABLET PO SCH (08:26)
[2021-05-29] MEDS: DOCUSATE SODIUM 100 MG CAPSULE PO SCH (08:26)
[2021-05-29] MEDS: AMLODIPINE BESYLATE 10 MG TABLET PO SCH (08:29)
[2021-05-29] MEDS: BLOOD SUGAR DIAGNOSTIC 1 EACH STRIP IN SCH ×4 (08:59→22:29)
[2021-05-29 12:00] VITALS: BP 125/70
[2021-05-29] MEDS: CEFTRIAXONE 1 G in IV D5W 50 ML IV SCH (16:28)
--- NOTE | 2021-05-29 19:32 | NUR ---
RN NOTE PT RESTING IN BED, ALERT AND VERBALLY RESPONSIVE. NO COMPLAINTS OF PAIN AND DISCOMFORT. ALL DUE MEDICATIONS GIVEN. MORNING CARE DONE. L HAND MED LOCK G22 IN PLACE, WITH IVF D5NS @75CC/HR. ALL SAFETY MEASURES FOLLOWED. WILL CONTINUE TO MONITOR.
--- NOTE | 2021-05-29 19:50 | NUR ---
RN NOTE RECEIVED PATIENT RESTING IN BED, ALERT AND VERBALLY RESPONSIVE. NO DISCOMFORT STATED BY PATIENT, HE IS A/O X3. IV SITE NOTED D5NS @75CC/HR.PATIENT WEARING DIAPER. ALL COVID 19 ISOLATION PRECAUTIONS FOLLOWED, AND ALL ENVIRONMENTAL SAFETY METHODS FOLLOWED. PATIENT ON ROOM AIR, SATURATING 995. WILL CONTINUE PLAN OF CARE FOR PATIENT.
[2021-05-29 20:00] VITALS: BP 133/78
[2021-05-29] MEDS: risperiDONE 1 MG TABLET PO SCH (22:28)
[2021-05-29] MEDS: TAMSULOSIN 0.4 MG CAP.SR.24H PO SCH (22:28)
[2021-05-29] MEDS: ENOXAPARIN SODIUM 40 MG/0.4 ML DISP.SYRIN SQ SCH (22:28)
[2021-05-29] MEDS: THERAHONEY GEL 1.5 OZ TUBE TP SCH (22:29)
[2021-05-29] MEDS: INSULIN REGULAR, HUMAN 100 UNIT/ML 3 ML VIAL SQ PRN (23:18)
[2021-05-30 04:00] VITALS: BP 139/70
--- NOTE | 2021-05-30 07:30 | NUR ---
RN NOTE NO CHANGES DURING SHIFT, PATIENT REMAINED STABLE THROUGHOUT NIGHT. AM NURSE IS AWARE OF THE WOUND TREATMENT PLAN ON BL HEELS, AND THAT ONLY RIGHT HEEL WAS CHANGED BECAUSE PATIENT WAS IN PAIN AT THE TIME.WILL ENDORSE PLAN OF CARE TO ONCOMING NURSE.
--- NOTE | 2021-05-30 07:49 | NUR ---
RN OPENING NOTE RECEIVED PATIENT RESTING IN BED, ALERT AND VERBALLY RESPONSIVE. NO DISCOMFORT STATED BY PATIENT OR SOB ,A/O X3. IV SITE NOTED D5NS @75CC/HR. PATIENT IS ON ROOM AIR O2 SAT 99%.SAFETY PROTOCOL IN PLACE BED IN LOWEST POSITION, LOCKED AND 2 SIDE RAILS UP. .
[2021-05-30 08:00] VITALS: BP 145/77
[2021-05-30] MEDS: BLOOD SUGAR DIAGNOSTIC 1 EACH STRIP IN SCH ×4 (08:30→22:12)
[2021-05-30] MEDS: FOLIC ACID 1 MG TABLET PO SCH (09:08)
[2021-05-30] MEDS: DOCUSATE SODIUM 100 MG CAPSULE PO SCH (09:09)
[2021-05-30] MEDS: ESCITALOPRAM OXALATE (10 MG) 10 MG TABLET PO SCH (09:09)
[2021-05-30] MEDS: FERROUS SULFATE (325 MG) 325 MG/TAB TABLET PO SCH ×3 (09:09→17:06)
[2021-05-30] MEDS: PANTOPRAZOLE 40 MG TABLET.DR PO SCH (09:09)
[2021-05-30] MEDS: FLUDROCORTISONE 0.1 MG TABLET PO SCH (09:09)
[2021-05-30] MEDS: ASPIRIN 81 MG TAB.CHEW PO SCH (09:09)
[2021-05-30] MEDS: AMLODIPINE BESYLATE 10 MG TABLET PO SCH (09:09)
[2021-05-30] MEDS: CLOPIDOGREL BISULFATE 75 MG TABLET PO SCH (09:09)
[2021-05-30 09:31] LABS: BASOPHILS % (AUTO) 0.9 % (0.0-2.0); EOSINOPHILS % (AUTO) 7.9 % (0.0-6.0); HEMATOCRIT 33 % (39-51); HEMOGLOBIN 10.5 g/dL (13.5-17.5); LYMPHOCYTES # (AUTO) 1.3 K/uL (0.8-4.8); LYMPHOCYTES % (AUTO) 24.9 % (20.0-44.0); MEAN CORPUSCULAR HGB CONC 32 g/dl (31.0-36.0); MEAN CORPUSCULAR VOLUME 81 fL (80-96); MONOCYTES # (AUTO) 0.5 K/uL (0.1-1.30); MONOCYTES % (AUTO) 8.8 % (2.0-12.0); NEUTROPHILS % (AUTO) 57.5 % (43.0-81.0); PLATELET COUNT (AUTO) 120 K/uL (150-450); RED BLOOD CELL COUNT(AUTO) 4.11 MIL/uL (4.5-6.0); WHITE BLOOD COUNT (AUTO) 5.3 K/uL (4.3-11.0)
[2021-05-30] MEDS: IV D5/ 0.9% NACL 1,000 ML IV PRN (09:31)
[2021-05-30] MEDS: DORZOLAMIDE OPTH 2% 10 ML BOTTLE OP SCH ×2 (09:33→17:09)
[2021-05-30 09:55] LABS: CALCIUM, SERUM 7.6 mg/dL (8.5-10.1); CARBON DIOXIDE 21 mmol/L (21-32); CHLORIDE 110 mmol/L (98-107); CREATININE 1.6 mg/dL (0.6-1.3); GLUCOSE 102 mg/dL (74-106); POTASSIUM 3.9 mmol/L (3.5-5.1); SODIUM SERUM 139 mmol/L (136-145); UREA NITROGEN, BLOOD 37 mg/dL (7-18)
[2021-05-30 12:00] VITALS: BP 140/75
[2021-05-30] MEDS: CEFTRIAXONE 1 G in IV D5W 50 ML IV SCH (15:34)
[2021-05-30] MEDS: INSULIN REGULAR, HUMAN 100 UNIT/ML 3 ML VIAL SQ PRN ×2 (17:16→22:13)
[2021-05-30 18:21] VITALS: BP 129/75
--- NOTE | 2021-05-30 18:56 | NUR ---
RN CLOSING NOTE PATIENT RESTING IN BED, ALERT AND VERBALLY RESPONSIVE. NO DISCOMFORT STATED BY PATIENT OR SOB ,A/O X3. PATIENT IS ON ROOM AIR O2 SAT 99%. ALL MEDICATIONS WERE GIVE S SCHEDULED. SAFETY PROTOCOL IN PLACE BED IN LOWEST POSITION, LOCKED AND 2 SIDE RAILS UP. WILL ENDORSE TO NIGHT NURSE FOR KINZA.
--- NOTE | 2021-05-30 19:40 | NUR ---
RN OPENING NOTE RECEIVED PATIENT RESTING IN BED, ALERT AND VERBALLY RESPONSIVE. A/O X 3. EVEN BREATHING WITH NO DISTRESS, ON ROOM AIR SATURATING 100%. PATIENT ON COVID ISOLATION PRECAUTIONS, AND ALL ENVIRONMENTAL MEASURES TAKEN. SAFETY PROTOCOL IN PLACE BED IN LOWEST POSITION, LOCKED AND 2 SIDE RAILS UP. WILL CONTINUE PLAN OF CARE FOR PATIENT.
[2021-05-30 20:00] VITALS: BP 137/77
[2021-05-30] MEDS: risperiDONE 1 MG TABLET PO SCH (21:44)
[2021-05-30] MEDS: TAMSULOSIN 0.4 MG CAP.SR.24H PO SCH (21:44)
[2021-05-30] MEDS: ENOXAPARIN SODIUM 40 MG/0.4 ML DISP.SYRIN SQ SCH (21:45)
--- NOTE | 2021-05-30 22:05 | NUR ---
BS WAS 72- NO INSULIN GIVEN Addendum: 05/30/21 at 2353 by Pauline Brock RN BLOOD GLUCOSE* 72
[2021-05-31 04:00] VITALS: BP 136/80
--- NOTE | 2021-05-31 06:09 | NUR ---
RN CLOSING NOTES PATIENT REMAINED STABLE THROUGHOUT THE NIGHT, WITH NO CHANGES. PATIENT KEPT DRY AND CLEANED AND REPOSITIONED ACCORDINGLY. ALL PATIENTS NEED MET THROUGHOUT THE SHIFT, WILL ENDORSE TO AM NURSE FOR PLAN OF CARE.
--- NOTE | 2021-05-31 07:10 | NUR ---
RN NOTE REPORT REC'D FR NOC RN. PT IS AWAKE,ALERT,OX3. NO SOB. DENIES ANY NEED AT THIS TIME. ON RA. IV LH PATENT AND INTACT. SAFETY AND ISOLATION PRECAUTIONS OBSERVED. CALL LIGHT WITHIN REACH. WILL CONT. TO MONITOR FOR ANY CHANGE IN CONDITION.
[2021-05-31] MEDS: BLOOD SUGAR DIAGNOSTIC 1 EACH STRIP IN SCH ×4 (08:09→22:00)
[2021-05-31] MEDS: INSULIN REGULAR, HUMAN 100 UNIT/ML 3 ML VIAL SQ PRN ×3 (08:10→17:18)
[2021-05-31] MEDS: ESCITALOPRAM OXALATE (10 MG) 10 MG TABLET PO SCH (08:47)
[2021-05-31] MEDS: DOCUSATE SODIUM 100 MG CAPSULE PO SCH (08:47)
[2021-05-31] MEDS: DORZOLAMIDE OPTH 2% 10 ML BOTTLE OP SCH ×2 (08:47→17:01)
[2021-05-31] MEDS: FLUDROCORTISONE 0.1 MG TABLET PO SCH (08:47)
[2021-05-31] MEDS: AMLODIPINE BESYLATE 10 MG TABLET PO SCH (08:47)
[2021-05-31] MEDS: PANTOPRAZOLE 40 MG TABLET.DR PO SCH (08:47)
[2021-05-31] MEDS: FOLIC ACID 1 MG TABLET PO SCH (08:48)
[2021-05-31] MEDS: ASPIRIN 81 MG TAB.CHEW PO SCH (08:48)
[2021-05-31] MEDS: CLOPIDOGREL BISULFATE 75 MG TABLET PO SCH (08:48)
[2021-05-31] MEDS: FERROUS SULFATE (325 MG) 325 MG/TAB TABLET PO SCH ×3 (08:48→16:18)
[2021-05-31] MEDS: THERAHONEY GEL 1.5 OZ TUBE TP SCH (09:23)
[2021-05-31 12:00] VITALS: BP 150/74
[2021-05-31] MEDS: CEFTRIAXONE 1 G in IV D5W 50 ML IV SCH (16:18)
--- NOTE | 2021-05-31 18:38 | NUR ---
RN NOTE PTS CONDITION REMAINS THE SAME. NO ACUTE CHANGES NOTED. NO C/O PAIN OR DISCOMFORT. REPOSITIONED PT Q2HR. DUE MEDS GIVEN. SAFETY AND RESP. ISOLATION PRECAUTIONS OBSERVED. CALL LIGHT WITHIN REACH. WILL ENDORSE TO WALDEMAR RN FOR KINZA.
[2021-05-31 20:00] VITALS: BP 133/88
--- NOTE | 2021-05-31 20:31 | NUR ---
RN OPENING NOTES: RECEIVED PATIENT AWAKE IN BED, BED IN LOW POSITION, CALL LIGHTS WITHIN REACH, NO COMPLAIN OF PAIN AND DISCOMFORT AT THIS TIME, PATIENTIS ON ROOM AIR SATURATING WELL, WITH IV LINE AT LEFT HAND#22 SALINE LOCK, PATIENT KEPT CLEAN AND DRY ALL NEEDS MET, WILL CONTINUE TO MONITOR.
[2021-05-31] MEDS: risperiDONE 1 MG TABLET PO SCH (21:46)
[2021-05-31] MEDS: TAMSULOSIN 0.4 MG CAP.SR.24H PO SCH (21:46)
[2021-05-31] MEDS: ENOXAPARIN SODIUM 40 MG/0.4 ML DISP.SYRIN SQ SCH (21:47)
--- NOTE | 2021-05-31 22:15 | NUR ---
RN NOTES; BLOOD SUGAR-92- NO INSULIN GIVEN PER SLIDING SCALE
[2021-06-01 04:00] VITALS: BP 153/77
--- NOTE | 2021-06-01 06:12 | NUR ---
RN CLOSING NOTES: PATIENT SLEEP IN BED COMFORTABLY, AROSABLE TO VERBAL STIMULI. BED IN LOW POSITION, CALL LIGHTS WITHIN REACH, NO COMPLAIN OF PAIN AND DISCOMFORT AT THIS TIME, PATIENT IS A/O X2-3 ABLE TO EXPRESS NEEDS, WIITH RIGHT SIDED WEAKNESS, WITH IV LINE AT LEFT HAND #22 ON ROOM AIR SATURATING WELL, PATIENT KEPT CLEAN AND DRY, ALL NEEDS MET, ENDORSE TO INCOMING SHIFT.
--- NOTE | 2021-06-01 07:40 | NUR ---
RN OPENING NOTES RECEIVED PATIENT AWAKE IN BED, BED IN LOW POSITION, CALL LIGHTS WITHIN REACH, NO COMPLAIN OF PAIN AND DISCOMFORT AT THIS TIME, PATIENT IS ON ROOM AIR SATURATING WELL, WITH IV LINE AT LEFT HAND#22 SALINE LOCK, PATIENT KEPT CLEAN AND DRY ALL NEEDS MET, ALL SAFETY MEASURES IN PLACE, WILL CONTINUE TO MONITOR.
[2021-06-01] MEDS: BLOOD SUGAR DIAGNOSTIC 1 EACH STRIP IN SCH ×2 (07:55→11:48)
[2021-06-01] MEDS: INSULIN REGULAR, HUMAN 100 UNIT/ML 3 ML VIAL SQ PRN (07:56)
[2021-06-01] MEDS: DOCUSATE SODIUM 100 MG CAPSULE PO SCH (09:54)
[2021-06-01] MEDS: FOLIC ACID 1 MG TABLET PO SCH (09:54)
[2021-06-01] MEDS: PANTOPRAZOLE 40 MG TABLET.DR PO SCH (09:54)
[2021-06-01] MEDS: ASPIRIN 81 MG TAB.CHEW PO SCH (09:54)
[2021-06-01] MEDS: ESCITALOPRAM OXALATE (10 MG) 10 MG TABLET PO SCH (09:54)
[2021-06-01] MEDS: FERROUS SULFATE (325 MG) 325 MG/TAB TABLET PO SCH ×2 (09:54→12:50)
[2021-06-01] MEDS: FLUDROCORTISONE 0.1 MG TABLET PO SCH (09:54)
[2021-06-01] MEDS: CLOPIDOGREL BISULFATE 75 MG TABLET PO SCH (09:54)
[2021-06-01] MEDS: AMLODIPINE BESYLATE 10 MG TABLET PO SCH (09:55)
[2021-06-01] MEDS: THERAHONEY GEL 1.5 OZ TUBE TP SCH (09:56)
[2021-06-01] MEDS: DORZOLAMIDE OPTH 2% 10 ML BOTTLE OP SCH (09:57)
[2021-06-01 12:00] VITALS: BP 156/81
--- NOTE | 2021-06-01 14:02 | NUR ---
PATIENT REFUSED DISCHARGE PHOTO TAKEN.
--- NOTE | 2021-06-01 15:02 | NUR ---
DC NOTES PT DC'S TO [facility] IN STABLE CONDITION. DC INSTRUCTIONS GIVEN AND EXPLAINED TO PT. VERBALIZED UNDERSTANDING. ALL PAPERWORK SIGNED AND COMPLETED. ALL BELONGINGS SENT WITH PT. NO COMPLICATIONS NOTED. IV ACCESS REMOVED. PT LEFT UNIT IN STABLE CONDITION VIA GURNEY. PT ENDORSED TO AMBULANCE CREW ACCORDINGLY.
== END 2021-06-01 14:38 | DRG 178 ==
LOC: ER 11:30 → MEDSG1 18:03
PROVIDERS: ADMIT Legal Medicine
DX: U07.1 COVID-19 (principal); I69.351 Hemiplegia and hemiparesis following cerebral infarction affecting right dominant side; L97.429 Non-pressure chronic ulcer of left heel and midfoot with unspecified severity; L97.419 Non-pressure chronic ulcer of right heel and midfoot with unspecified severity; I87.313 Chronic venous hypertension (idiopathic) with ulcer of bilateral lower extremity; E78.5 Hyperlipidemia, unspecified; N18.30 Chronic kidney disease, stage 3 unspecified; F41.9 Anxiety disorder, unspecified; I25.10 Atherosclerotic heart disease of native coronary artery without angina pectoris; I12.9 Hypertensive chronic kidney disease with stage 1 through stage 4 chronic kidney disease, or unspecified chronic kidney disease; E11.40 Type 2 diabetes mellitus with diabetic neuropathy, unspecified; E11.22 Type 2 diabetes mellitus with diabetic chronic kidney disease; E55.9 Vitamin D deficiency, unspecified; G89.29 Other chronic pain; L89.619 Pressure ulcer of right heel, unspecified stage; D64.9 Anemia, unspecified; H26.9 Unspecified cataract; Z79.82 Long term (current) use of aspirin; Z79.899 Other long term (current) drug therapy; E86.0 Dehydration; E11.622 Type 2 diabetes mellitus with other skin ulcer; F03.90 Unspecified dementia, unspecified severity, without behavioral disturbance, psychotic disturbance, mood disturbance, and anxiety
CPT/HCPCS: 36415; 71045-TC; 80048-TC; 82962-TC; 85025-TC; 85378-TC; 86140-TC; 87081-TC; A6253; A6403; C9803; G0378; J0696; J1650; J1815; J7042; J7050; J7060; J7120; U0003

== ENCOUNTER 2021-10-02 13:33 | Inpatient (IN) | payer MEDICARE, OTHER ==
[~2021-10-02] VITALS: Ht 167.6 cm; Wt 72.6 kg
[~2021-10-02 13:33] MED LIST changes: +ACET-2605 PO; -ASCO-352 PO; -ATOR20TA PO; -CHOL20004 PO; +CLOP75TA15 PO; -CYCL30DR OP; +DORZ10DR10 OP; +EPOE1VIA12 IJ; +FERR325T23 PO; +FLUD0.1T3 PO; +FOLI0.8T3 PO; -METF-440 PO; -MULT-447 PO; +PANT40TA49 PO; -RISP0.5T5 PO; +RISP1TAB97 PO; -ZINC220C6 PO; -ZOLP10TA2 PO
[2021-10-02 14:11] LABS: BASOPHILS # (AUTO) 0.1 K/uL (0.0-0.2); BASOPHILS % (AUTO) 1.4 % (0.0-2.0); EOSINOPHILS % (AUTO) 8.5 % (0.0-6.0); HEMATOCRIT 29 % (39-51); HEMOGLOBIN 9.3 g/dL (13.5-17.5); LYMPHOCYTES # (AUTO) 1.1 K/uL (0.8-4.8); MEAN CORPUSCULAR HGB CONC 32 g/dl (31.0-36.0); MEAN CORPUSCULAR VOLUME 84 fL (80-96); MONOCYTES # (AUTO) 0.4 K/uL (0.1-1.30); MONOCYTES % (AUTO) 7.5 % (2.0-12.0); NEUTROPHILS # (AUTO) 3.2 K/uL (1.8-8.9); NEUTROPHILS % (AUTO) 61.6 % (43.0-81.0); PLATELET COUNT (AUTO) 89 K/uL (150-450); RED BLOOD CELL COUNT(AUTO) 3.44 MIL/uL (4.5-6.0); WHITE BLOOD COUNT (AUTO) 5.2 K/uL (4.3-11.0)
[2021-10-02 14:19] LABS: SERUM AMMONIA 31 umol/L (11-32)
[2021-10-02 14:23] LABS: ALANINE AMINOTRANSFERASE 52 U/L (12-78); ALBUMIN 2.6 g/dL (3.4-5.0); ALKALINE PHOSPHATASE 168 U/L (46-116); ASPARTATE AMINOTRANSFERASE 28 U/L (15-37); BILIRUBIN,DIRECT 0.1 mg/dL (0.0-0.2); BILIRUBIN,TOTAL 0.2 mg/dL (0.2-1.0); CALCIUM, SERUM 7.9 mg/dL (8.5-10.1); CARBON DIOXIDE 25 mmol/L (21-32); CHLORIDE 107 mmol/L (98-107); CREATININE 1.7 mg/dL (0.6-1.3); GLUCOSE 141 mg/dL (74-106); POTASSIUM 4.3 mmol/L (3.5-5.1); SODIUM SERUM 140 mmol/L (136-145); TOTAL PROTEIN, SERUM 6.6 g/dL (6.4-8.2); UREA NITROGEN, BLOOD 59 mg/dL (7-18)
[2021-10-02 14:31] LABS: THYROID STIMULATING HORMONE 2.406 uIU/mL (0.358-3.74)
[2021-10-02] MEDS ORDERED: AMIN887L PO (15:02)
[2021-10-02] MEDS ORDERED: ZINC220C6 PO (15:02)
[2021-10-02] MEDS ORDERED: ASCO500C17 PO (15:02)
[2021-10-02] MEDS ORDERED: *INS REG3 IJ (15:02)
[2021-10-02 15:03] LABS: BILIRUBIN,URINE NEGATIVE (NEGATIVE); COLOR,URINE YELLOW (YELLOW); LEUKOCYTE ESTERASE ,URINE MODERATE (NEGATIVE); NITRITE, URINE NEGATIVE (NEGATIVE); PH,URINE 5.5 (5.0-8.0); PROTEIN,URINE TRACE mg/dl (NEGATIVE); UGLUCOSE NEGATIVE (NEGATIVE); UROBILINOGEN,URINE 0.2 EU/dL (0.2)
[2021-10-02 15:19] LABS: BACTERIA,URINE 4+ /HPF (None Seen); RBC,URINE 21-50 /HPF (0-2); SQUAMOUS EPITHELIAL CELL,UR 0-2 /HPF (None Seen); WBC,URINE 21-50 /HPF (0-3)
[2021-10-02] MEDS ORDERED: ONDANSETRON HCL/PF 4 MG/2 ML VIAL IV PRN (15:30)
[2021-10-02] MEDS ORDERED: ENOXAPARIN SODIUM 40 MG/0.4 ML DISP.SYRIN SQ SCH ×2 (17:00→21:00)
[2021-10-02 17:43] LABS: EOSINOPHILS % (MANUAL) 7 % (0-4); LYMPHOCYTES % (MANUAL) 24 % (16-48); MONOCYTES % (MANUAL) 3 % (0-11.0); NEUTROPHILS % (MANUAL) 66 (42-76)
[2021-10-02 17:59] VITALS: BP 148/76
[2021-10-02 18:00] VITALS: BP 142/76
[2021-10-02] MEDS: CEFTRIAXONE 1 G in IV D5W 50 ML IV SCH (18:22)
[2021-10-02 20:00] VITALS: BP 153/79
[2021-10-02] MEDS ORDERED: ACETAMINOPHEN 325 MG TABLET PO PRN (20:30)
[2021-10-02] MEDS ORDERED: INSULIN REGULAR, HUMAN 100 UNIT/ML 3 ML VIAL SQ PRN (20:30)
[2021-10-02] MEDS ORDERED: BISACODYL SUPP (10 MG) 10 MG/SUPP.RECT SUPP.RECT RC PRN (20:30)
[2021-10-02] MEDS ORDERED: *INSULIN REGULAR(HUMULIN R)HUM 100 UNIT/ML VIAL SQ PRN (20:30)
[2021-10-02] MEDS ORDERED: HYDROCODONE/APAP 5/325MG TABLET PO PRN (20:30)
[2021-10-02] MEDS ORDERED: DEXTROSE 50%-WATER 50 ML DISP.SYRIN IV PRN ×2 (20:30→22:00)
[2021-10-02] MEDS: IV D5/ 0.9% NACL 1,000 ML IV PRN (20:43)
[2021-10-02] MEDS: ENOXAPARIN SODIUM 30 MG/0.3 ML DISP.SYRIN SQ SCH (21:36)
[2021-10-02] MEDS ORDERED: Medication Not On Formulary EA (Melatonin 6 MG) PO SCH (22:00)
[2021-10-02] MEDS ORDERED: BLOOD SUGAR DIAGNOSTIC 1 EACH STRIP IN SCH (22:00)
[2021-10-02] MEDS ORDERED: MAGNESIUM HYDROXIDE 30 ML UDC PO PRN (22:00)
[2021-10-02] MEDS: BLOOD SUGAR DIAGNOSTIC 1 EACH STRIP IN SCH (22:12)
[2021-10-02] MEDS: MAGNESIUM OXIDE 400 MG TABLET PO SCH (22:15)
[2021-10-02] MEDS: risperiDONE 1 MG TABLET PO SCH (22:15)
[2021-10-02] MEDS: TAMSULOSIN 0.4 MG CAP.SR.24H PO SCH (22:16)
[2021-10-02] MEDS: INSULIN REGULAR, HUMAN 100 UNIT/ML 3 ML VIAL SQ PRN (22:17)
[2021-10-03 04:00] VITALS: BP 150/65
[2021-10-03] MEDS: IV D5/ 0.9% NACL 1,000 ML IV PRN ×2 (06:19→17:07)
[2021-10-03 07:04] LABS: BASOPHILS # (AUTO) 0.1 K/uL (0.0-0.2); BASOPHILS % (AUTO) 1.1 % (0.0-2.0); EOSINOPHILS % (AUTO) 7.7 % (0.0-6.0); HEMATOCRIT 30 % (39-51); HEMOGLOBIN 9.7 g/dL (13.5-17.5); LYMPHOCYTES % (AUTO) 20.2 % (20.0-44.0); MEAN CORPUSCULAR HGB CONC 32 g/dl (31.0-36.0); MEAN CORPUSCULAR VOLUME 84 fL (80-96); MONOCYTES # (AUTO) 0.5 K/uL (0.1-1.30); MONOCYTES % (AUTO) 10.1 % (2.0-12.0); NEUTROPHILS # (AUTO) 3.2 K/uL (1.8-8.9); NEUTROPHILS % (AUTO) 60.9 % (43.0-81.0); PLATELET COUNT (AUTO) 86 K/uL (150-450); RED BLOOD CELL COUNT(AUTO) 3.62 MIL/uL (4.5-6.0); WHITE BLOOD COUNT (AUTO) 5.2 K/uL (4.3-11.0)
[2021-10-03 07:43] LABS: CALCIUM, SERUM 7.8 mg/dL (8.5-10.1); CARBON DIOXIDE 22 mmol/L (21-32); CHLORIDE 110 mmol/L (98-107); CREATININE 1.8 mg/dL (0.6-1.3); GLUCOSE 88 mg/dL (74-106); POTASSIUM 4.2 mmol/L (3.5-5.1); SODIUM SERUM 141 mmol/L (136-145); UREA NITROGEN, BLOOD 58 mg/dL (7-18)
[2021-10-03 08:00] VITALS: BP 139/74
[2021-10-03] MEDS: BLOOD SUGAR DIAGNOSTIC 1 EACH STRIP IN SCH ×4 (08:04→21:21)
[2021-10-03] MEDS: FERROUS SULFATE (325 MG) 325 MG/TAB TABLET PO SCH ×2 (08:47→17:00)
[2021-10-03] MEDS: CLOPIDOGREL BISULFATE 75 MG TABLET PO SCH (08:47)
[2021-10-03] MEDS: FLUDROCORTISONE 0.1 MG TABLET PO SCH (08:47)
[2021-10-03] MEDS: ASPIRIN 81 MG TAB.CHEW PO SCH (08:47)
[2021-10-03] MEDS: AMLODIPINE BESYLATE 10 MG TABLET PO SCH (08:47)
[2021-10-03] MEDS: DOCUSATE SODIUM 100 MG CAPSULE PO SCH (08:48)
[2021-10-03] MEDS: DORZOLAMIDE OPTH 2% 10 ML BOTTLE OP SCH ×2 (08:48→17:01)
[2021-10-03] MEDS: PANTOPRAZOLE 40 MG TABLET.DR PO SCH (08:52)
[2021-10-03] MEDS: Z GUARD REMEDY 4 OZ OINT TP SCH (08:53)
[2021-10-03] MEDS ORDERED: EPOETIN ALFA (10,000 UNIT) 10,000 UNIT/ML VIAL IJ SCH (09:00)
[2021-10-03] MEDS ORDERED: PANTOPRAZOLE 40 MG TABLET.DR PO SCH (09:00)
[2021-10-03] MEDS ORDERED: Z GUARD REMEDY 4 OZ OINT TP PRN (09:00)
[2021-10-03] MEDS: INSULIN REGULAR, HUMAN 100 UNIT/ML 3 ML VIAL SQ PRN ×2 (13:06→21:29)
[2021-10-03] MEDS: EPOETIN ALFA-EPBX 4,000 UNIT/ML VIAL SQ SCH (14:53)
[2021-10-03 16:00] VITALS: BP 123/71
[2021-10-03] MEDS: CEFTRIAXONE 1 G in IV D5W 50 ML IV SCH (17:00)
[2021-10-03 17:57] LABS: EOSINOPHILS % (MANUAL) 16 % (0-4); LYMPHOCYTES % (MANUAL) 20 % (16-48); MONOCYTES % (MANUAL) 8 % (0-11.0); NEUTROPHILS % (MANUAL) 56 (42-76)
[2021-10-03 20:00] VITALS: BP 146/83
[2021-10-03] MEDS: risperiDONE 1 MG TABLET PO SCH (21:21)
[2021-10-03] MEDS: TAMSULOSIN 0.4 MG CAP.SR.24H PO SCH (21:21)
[2021-10-03] MEDS: MUPIROCIN OINT 2% 22 GM TUBE NS SCH (21:21)
[2021-10-03] MEDS: MAGNESIUM OXIDE 400 MG TABLET PO SCH (21:23)
[2021-10-03] MEDS: ENOXAPARIN SODIUM 30 MG/0.3 ML DISP.SYRIN SQ SCH (21:28)
[2021-10-04 04:00] VITALS: BP 135/77
[2021-10-04] MEDS: IV D5/ 0.9% NACL 1,000 ML IV PRN ×2 (06:14→16:04)
[2021-10-04 08:00] VITALS: BP 147/85
[2021-10-04] MEDS: FERROUS SULFATE (325 MG) 325 MG/TAB TABLET PO SCH ×2 (08:17→16:00)
[2021-10-04] MEDS: AMLODIPINE BESYLATE 10 MG TABLET PO SCH (08:17)
[2021-10-04] MEDS: DOCUSATE SODIUM 100 MG CAPSULE PO SCH (08:17)
[2021-10-04] MEDS: CLOPIDOGREL BISULFATE 75 MG TABLET PO SCH (08:17)
[2021-10-04] MEDS: FLUDROCORTISONE 0.1 MG TABLET PO SCH (08:17)
[2021-10-04] MEDS: PANTOPRAZOLE 40 MG TABLET.DR PO SCH (08:17)
[2021-10-04] MEDS: ASPIRIN 81 MG TAB.CHEW PO SCH (08:17)
[2021-10-04] MEDS: THERAHONEY GEL 1.5 OZ TUBE TP SCH (08:18)
[2021-10-04] MEDS: Z GUARD REMEDY 4 OZ OINT TP SCH (08:18)
[2021-10-04] MEDS: MUPIROCIN OINT 2% 22 GM TUBE NS SCH ×2 (08:19→21:06)
[2021-10-04] MEDS: DORZOLAMIDE OPTH 2% 10 ML BOTTLE OP SCH ×2 (08:19→16:01)
[2021-10-04] MEDS: BLOOD SUGAR DIAGNOSTIC 1 EACH STRIP IN SCH ×4 (08:23→21:31)
[2021-10-04 12:00] VITALS: BP 140/80
[2021-10-04] MEDS: CEFTRIAXONE 1 G in IV D5W 50 ML IV SCH (16:00)
[2021-10-04 20:00] VITALS: BP 145/88
[2021-10-04] MEDS: risperiDONE 1 MG TABLET PO SCH (21:05)
[2021-10-04] MEDS: SULFAMETH/TRIMETH 800/160 MG 1 UDTAB TABLET PO SCH (21:05)
[2021-10-04] MEDS: TAMSULOSIN 0.4 MG CAP.SR.24H PO SCH (21:05)
[2021-10-04] MEDS: MAGNESIUM OXIDE 400 MG TABLET PO SCH (21:05)
[2021-10-04] MEDS: ENOXAPARIN SODIUM 30 MG/0.3 ML DISP.SYRIN SQ SCH (21:07)
[2021-10-04] MEDS: INSULIN REGULAR, HUMAN 100 UNIT/ML 3 ML VIAL SQ PRN (21:32)
[2021-10-05 04:00] VITALS: BP 164/95
[2021-10-05] MEDS: FLUDROCORTISONE 0.1 MG TABLET PO SCH (08:20)
[2021-10-05] MEDS: PANTOPRAZOLE 40 MG TABLET.DR PO SCH (08:20)
[2021-10-05] MEDS: SULFAMETH/TRIMETH 800/160 MG 1 UDTAB TABLET PO SCH ×2 (08:20→20:07)
[2021-10-05] MEDS: DOCUSATE SODIUM 100 MG CAPSULE PO SCH (08:21)
[2021-10-05] MEDS: AMLODIPINE BESYLATE 10 MG TABLET PO SCH (08:21)
[2021-10-05] MEDS: FERROUS SULFATE (325 MG) 325 MG/TAB TABLET PO SCH ×2 (08:21→16:04)
[2021-10-05] MEDS: CLOPIDOGREL BISULFATE 75 MG TABLET PO SCH (08:21)
[2021-10-05] MEDS: ASPIRIN 81 MG TAB.CHEW PO SCH (08:21)
[2021-10-05] MEDS: DORZOLAMIDE OPTH 2% 10 ML BOTTLE OP SCH ×2 (08:22→16:04)
[2021-10-05] MEDS: MUPIROCIN OINT 2% 22 GM TUBE NS SCH ×2 (08:22→20:08)
[2021-10-05] MEDS: Z GUARD REMEDY 4 OZ OINT TP SCH (08:31)
[2021-10-05] MEDS: BLOOD SUGAR DIAGNOSTIC 1 EACH STRIP IN SCH ×4 (08:31→21:42)
[2021-10-05] MEDS: THERAHONEY GEL 1.5 OZ TUBE TP SCH (08:32)
[2021-10-05 12:00] VITALS: BP 137/81
[2021-10-05 16:00] VITALS: BP 157/79
[2021-10-05 20:00] VITALS: BP 172/84
[2021-10-05] MEDS: ENOXAPARIN SODIUM 30 MG/0.3 ML DISP.SYRIN SQ SCH (20:09)
[2021-10-05] MEDS: TAMSULOSIN 0.4 MG CAP.SR.24H PO SCH (21:22)
[2021-10-05] MEDS: MAGNESIUM OXIDE 400 MG TABLET PO SCH (21:22)
[2021-10-05] MEDS: risperiDONE 1 MG TABLET PO SCH (21:22)
[2021-10-05] MEDS ORDERED: CLONIDINE HCL 0.1 MG TABLET PO PRN (22:00)
[2021-10-06 04:00] VITALS: BP 147/71
[2021-10-06 08:00] VITALS: BP 148/79
[2021-10-06] MEDS: BLOOD SUGAR DIAGNOSTIC 1 EACH STRIP IN SCH ×4 (08:01→22:06)
[2021-10-06] MEDS: PANTOPRAZOLE 40 MG TABLET.DR PO SCH (09:17)
[2021-10-06] MEDS: CLOPIDOGREL BISULFATE 75 MG TABLET PO SCH (09:18)
[2021-10-06] MEDS: FERROUS SULFATE (325 MG) 325 MG/TAB TABLET PO SCH ×2 (09:18→17:00)
[2021-10-06] MEDS: FLUDROCORTISONE 0.1 MG TABLET PO SCH (09:18)
[2021-10-06] MEDS: ASPIRIN 81 MG TAB.CHEW PO SCH (09:18)
[2021-10-06] MEDS: DOCUSATE SODIUM 100 MG CAPSULE PO SCH (09:18)
[2021-10-06] MEDS: SULFAMETH/TRIMETH 800/160 MG 1 UDTAB TABLET PO SCH ×2 (09:18→21:23)
[2021-10-06] MEDS: AMLODIPINE BESYLATE 10 MG TABLET PO SCH (09:19)
[2021-10-06] MEDS: MUPIROCIN OINT 2% 22 GM TUBE NS SCH ×2 (09:20→21:22)
[2021-10-06] MEDS: DORZOLAMIDE OPTH 2% 10 ML BOTTLE OP SCH ×2 (09:21→18:05)
[2021-10-06] MEDS: Z GUARD REMEDY 4 OZ OINT TP SCH (09:22)
[2021-10-06] MEDS: THERAHONEY GEL 1.5 OZ TUBE TP SCH (09:22)
[2021-10-06] MEDS: EPOETIN ALFA-EPBX 4,000 UNIT/ML VIAL SQ SCH (15:07)
[2021-10-06 16:00] VITALS: BP 147/85
[2021-10-06 16:34] LABS: BASOPHILS # (AUTO) 0.1 K/uL (0.0-0.2); BASOPHILS % (AUTO) 1.4 % (0.0-2.0); EOSINOPHILS % (AUTO) 6.1 % (0.0-6.0); HEMATOCRIT 31 % (39-51); HEMOGLOBIN 9.7 g/dL (13.5-17.5); LYMPHOCYTES # (AUTO) 0.8 K/uL (0.8-4.8); LYMPHOCYTES % (AUTO) 18.4 % (20.0-44.0); MEAN CORPUSCULAR HGB CONC 32 g/dl (31.0-36.0); MEAN CORPUSCULAR VOLUME 84 fL (80-96); MONOCYTES # (AUTO) 0.4 K/uL (0.1-1.30); MONOCYTES % (AUTO) 9.3 % (2.0-12.0); NEUTROPHILS # (AUTO) 2.6 K/uL (1.8-8.9); NEUTROPHILS % (AUTO) 64.8 % (43.0-81.0); PLATELET COUNT (AUTO) 76 K/uL (150-450); RED BLOOD CELL COUNT(AUTO) 3.64 MIL/uL (4.5-6.0); WHITE BLOOD COUNT (AUTO) 4.1 K/uL (4.3-11.0)
[2021-10-06 16:54] LABS: ALBUMIN 2.5 g/dL (3.4-5.0); BILIRUBIN,DIRECT 0.1 mg/dL (0.0-0.2); BILIRUBIN,TOTAL 0.2 mg/dL (0.2-1.0); TOTAL PROTEIN, SERUM 6.4 g/dL (6.4-8.2)
[2021-10-06 20:00] VITALS: BP 141/80
[2021-10-06] MEDS: ENOXAPARIN SODIUM 30 MG/0.3 ML DISP.SYRIN SQ SCH (21:23)
[2021-10-06] MEDS: TAMSULOSIN 0.4 MG CAP.SR.24H PO SCH (21:24)
[2021-10-06] MEDS: MAGNESIUM OXIDE 400 MG TABLET PO SCH (21:24)
[2021-10-06] MEDS: risperiDONE 1 MG TABLET PO SCH (21:24)
[2021-10-07 04:00] VITALS: BP 155/92
[2021-10-07] MEDS: FERROUS SULFATE (325 MG) 325 MG/TAB TABLET PO SCH ×2 (09:40→16:54)
[2021-10-07] MEDS: AMLODIPINE BESYLATE 10 MG TABLET PO SCH (09:40)
[2021-10-07] MEDS: BLOOD SUGAR DIAGNOSTIC 1 EACH STRIP IN SCH ×4 (09:40→22:22)
[2021-10-07] MEDS: DOCUSATE SODIUM 100 MG CAPSULE PO SCH (09:41)
[2021-10-07] MEDS: SULFAMETH/TRIMETH 800/160 MG 1 UDTAB TABLET PO SCH (09:41)
[2021-10-07] MEDS: Z GUARD REMEDY 4 OZ OINT TP SCH (09:41)
[2021-10-07] MEDS: PANTOPRAZOLE 40 MG TABLET.DR PO SCH (09:41)
[2021-10-07] MEDS: FLUDROCORTISONE 0.1 MG TABLET PO SCH (09:41)
[2021-10-07] MEDS: ASPIRIN 81 MG TAB.CHEW PO SCH (09:41)
[2021-10-07] MEDS: CLOPIDOGREL BISULFATE 75 MG TABLET PO SCH (09:41)
[2021-10-07] MEDS: MUPIROCIN OINT 2% 22 GM TUBE NS SCH ×2 (09:44→22:20)
[2021-10-07] MEDS: THERAHONEY GEL 1.5 OZ TUBE TP SCH (09:44)
[2021-10-07] MEDS: DORZOLAMIDE OPTH 2% 10 ML BOTTLE OP SCH ×2 (09:44→16:55)
[2021-10-07] MEDS: INSULIN REGULAR, HUMAN 100 UNIT/ML 3 ML VIAL SQ PRN ×3 (09:44→16:54)
[2021-10-07 15:20] LABS: CALCIUM, SERUM 8.2 mg/dL (8.5-10.1); CARBON DIOXIDE 23 mmol/L (21-32); CHLORIDE 105 mmol/L (98-107); CREATININE 1.9 mg/dL (0.6-1.3); GLUCOSE 85 mg/dL (74-106); POTASSIUM 4.9 mmol/L (3.5-5.1); SODIUM SERUM 135 mmol/L (136-145); UREA NITROGEN, BLOOD 38 mg/dL (7-18)
[2021-10-07 16:00] VITALS: BP 143/72
[2021-10-07] MEDS: LEVOFLOXACIN 250 MG /D5W 50 ML 250 MG in PREMIX 1 EA IV SCH (19:26)
[2021-10-07] MEDS: ENOXAPARIN SODIUM 30 MG/0.3 ML DISP.SYRIN SQ SCH (22:18)
[2021-10-07] MEDS: TAMSULOSIN 0.4 MG CAP.SR.24H PO SCH (22:19)
[2021-10-07] MEDS: MAGNESIUM OXIDE 400 MG TABLET PO SCH (22:19)
[2021-10-07] MEDS: risperiDONE 1 MG TABLET PO SCH (22:19)
[2021-10-08] VITALS: BP 167/88
[2021-10-08 07:14] LABS: CALCIUM, SERUM 8.6 mg/dL (8.5-10.1); CARBON DIOXIDE 24 mmol/L (21-32); CHLORIDE 105 mmol/L (98-107); GLUCOSE 135 mg/dL (74-106); POTASSIUM 4.5 mmol/L (3.5-5.1); SODIUM SERUM 137 mmol/L (136-145); UREA NITROGEN, BLOOD 34 mg/dL (7-18)
[2021-10-08 07:22] LABS: BASOPHILS # (AUTO) 0.1 K/uL (0.0-0.2); BASOPHILS % (AUTO) 1.4 % (0.0-2.0); HEMATOCRIT 29 % (39-51); HEMOGLOBIN 9.5 g/dL (13.5-17.5); LYMPHOCYTES # (AUTO) 0.7 K/uL (0.8-4.8); LYMPHOCYTES % (AUTO) 15.7 % (20.0-44.0); MEAN CORPUSCULAR HGB CONC 32 g/dl (31.0-36.0); MEAN CORPUSCULAR VOLUME 84 fL (80-96); MONOCYTES # (AUTO) 0.4 K/uL (0.1-1.30); MONOCYTES % (AUTO) 10.4 % (2.0-12.0); NEUTROPHILS # (AUTO) 2.9 K/uL (1.8-8.9); NEUTROPHILS % (AUTO) 68.5 % (43.0-81.0); PLATELET COUNT (AUTO) 76 K/uL (150-450); RED BLOOD CELL COUNT(AUTO) 3.51 MIL/uL (4.5-6.0); WHITE BLOOD COUNT (AUTO) 4.2 K/uL (4.3-11.0)
[2021-10-08 08:00] VITALS: BP 147/77
[2021-10-08] MEDS: FLUDROCORTISONE 0.1 MG TABLET PO SCH (09:53)
[2021-10-08] MEDS: BLOOD SUGAR DIAGNOSTIC 1 EACH STRIP IN SCH ×4 (09:53→21:38)
[2021-10-08] MEDS: FERROUS SULFATE (325 MG) 325 MG/TAB TABLET PO SCH ×2 (09:54→18:10)
[2021-10-08] MEDS: DOCUSATE SODIUM 100 MG CAPSULE PO SCH (09:54)
[2021-10-08] MEDS: ASPIRIN 81 MG TAB.CHEW PO SCH (09:54)
[2021-10-08] MEDS: CLOPIDOGREL BISULFATE 75 MG TABLET PO SCH (09:54)
[2021-10-08] MEDS: AMLODIPINE BESYLATE 10 MG TABLET PO SCH (09:54)
[2021-10-08] MEDS: INSULIN REGULAR, HUMAN 100 UNIT/ML 3 ML VIAL SQ PRN ×3 (09:55→18:07)
[2021-10-08] MEDS: PANTOPRAZOLE 40 MG TABLET.DR PO SCH (09:56)
[2021-10-08] MEDS: Z GUARD REMEDY 4 OZ OINT TP SCH (09:57)
[2021-10-08] MEDS: THERAHONEY GEL 1.5 OZ TUBE TP SCH (09:57)
[2021-10-08] MEDS: DORZOLAMIDE OPTH 2% 10 ML BOTTLE OP SCH ×2 (09:57→17:00)
[2021-10-08] MEDS: MUPIROCIN OINT 2% 22 GM TUBE NS SCH ×2 (09:57→21:33)
[2021-10-08] MEDS: EPOETIN ALFA-EPBX 4,000 UNIT/ML VIAL SQ SCH (15:01)
[2021-10-08 16:00] VITALS: BP 149/79
[2021-10-08] MEDS: LEVOFLOXACIN 250 MG /D5W 50 ML 250 MG in PREMIX 1 EA IV SCH (18:12)
[2021-10-08 20:00] VITALS: BP 157/87
[2021-10-08] MEDS: MAGNESIUM OXIDE 400 MG TABLET PO SCH (21:19)
[2021-10-08] MEDS: risperiDONE 1 MG TABLET PO SCH (21:19)
[2021-10-08] MEDS: TAMSULOSIN 0.4 MG CAP.SR.24H PO SCH (21:19)
[2021-10-09 04:00] VITALS: BP 145/91
[2021-10-09] MEDS: BLOOD SUGAR DIAGNOSTIC 1 EACH STRIP IN SCH ×4 (08:07→22:56)
[2021-10-09] MEDS: CLOPIDOGREL BISULFATE 75 MG TABLET PO SCH (09:38)
[2021-10-09] MEDS: ASPIRIN 81 MG TAB.CHEW PO SCH (09:38)
[2021-10-09] MEDS: FERROUS SULFATE (325 MG) 325 MG/TAB TABLET PO SCH ×2 (09:38→18:49)
[2021-10-09] MEDS: PANTOPRAZOLE 40 MG TABLET.DR PO SCH (09:39)
[2021-10-09] MEDS: AMLODIPINE BESYLATE 10 MG TABLET PO SCH (09:39)
[2021-10-09] MEDS: FLUDROCORTISONE 0.1 MG TABLET PO SCH (09:39)
[2021-10-09] MEDS: DOCUSATE SODIUM 100 MG CAPSULE PO SCH (09:39)
[2021-10-09] MEDS: MUPIROCIN OINT 2% 22 GM TUBE NS SCH ×2 (09:39→22:07)
[2021-10-09] MEDS: THERAHONEY GEL 1.5 OZ TUBE TP SCH (09:40)
[2021-10-09] MEDS: Z GUARD REMEDY 4 OZ OINT TP SCH (09:40)
[2021-10-09] MEDS: DORZOLAMIDE OPTH 2% 10 ML BOTTLE OP SCH ×2 (09:40→17:00)
[2021-10-09 16:02] VITALS: BP 150/88
[2021-10-09] MEDS: INSULIN REGULAR, HUMAN 100 UNIT/ML 3 ML VIAL SQ PRN (18:48)
[2021-10-09] MEDS: LEVOFLOXACIN 250 MG /D5W 50 ML 250 MG in PREMIX 1 EA IV SCH (18:50)
[2021-10-09] MEDS: risperiDONE 1 MG TABLET PO SCH (22:04)
[2021-10-09] MEDS: TAMSULOSIN 0.4 MG CAP.SR.24H PO SCH (22:04)
[2021-10-09] MEDS: MAGNESIUM OXIDE 400 MG TABLET PO SCH (22:04)
[2021-10-10] VITALS: BP 152/84
[2021-10-10 08:00] VITALS: BP 156/90
[2021-10-10] MEDS: DOCUSATE SODIUM 100 MG CAPSULE PO SCH (08:19)
[2021-10-10 08:20] VITALS: BP 156/90
[2021-10-10] MEDS: PANTOPRAZOLE 40 MG TABLET.DR PO SCH (08:20)
[2021-10-10] MEDS: FLUDROCORTISONE 0.1 MG TABLET PO SCH (08:20)
[2021-10-10] MEDS: AMLODIPINE BESYLATE 10 MG TABLET PO SCH (08:20)
[2021-10-10] MEDS: FERROUS SULFATE (325 MG) 325 MG/TAB TABLET PO SCH (08:20)
[2021-10-10] MEDS: ASPIRIN 81 MG TAB.CHEW PO SCH (08:20)
[2021-10-10] MEDS: CLOPIDOGREL BISULFATE 75 MG TABLET PO SCH (08:20)
[2021-10-10] MEDS: BLOOD SUGAR DIAGNOSTIC 1 EACH STRIP IN SCH ×2 (08:27→12:01)
[2021-10-10] MEDS: MUPIROCIN OINT 2% 22 GM TUBE NS SCH (08:33)
[2021-10-10] MEDS: DORZOLAMIDE OPTH 2% 10 ML BOTTLE OP SCH (08:34)
[2021-10-10] MEDS: Z GUARD REMEDY 4 OZ OINT TP SCH (08:35)
[2021-10-10] MEDS: THERAHONEY GEL 1.5 OZ TUBE TP SCH (08:35)
[2021-10-10 08:42] LABS: CALCIUM, SERUM 8.6 mg/dL (8.5-10.1); CARBON DIOXIDE 25 mmol/L (21-32); CHLORIDE 105 mmol/L (98-107); GLUCOSE 83 mg/dL (74-106); SODIUM SERUM 137 mmol/L (136-145); UREA NITROGEN, BLOOD 31 mg/dL (7-18)
[2021-10-10] MEDS ORDERED: LEVOFLOXACIN (250MG) 250 MG TABLET PO ONE (11:00)
== END 2021-10-10 16:20 | DRG 871 ==
LOC: ER 13:35 → TELE1 16:35 → MEDSG1 23:38
PROVIDERS: ADMIT Legal Medicine; ATTEND Legal Medicine
PROC: 05HF33Z Insertion of Infusion Device into Left Cephalic Vein, Percutaneous Approach (ICD-10-PCS; principal; 2021-10-09)
DX: A41.89 Other specified sepsis (principal); U07.1 COVID-19; G92.8 Other toxic encephalopathy; I69.351 Hemiplegia and hemiparesis following cerebral infarction affecting right dominant side; N39.0 Urinary tract infection, site not specified; L97.429 Non-pressure chronic ulcer of left heel and midfoot with unspecified severity; L97.319 Non-pressure chronic ulcer of right ankle with unspecified severity; N17.9 Acute kidney failure, unspecified; I12.9 Hypertensive chronic kidney disease with stage 1 through stage 4 chronic kidney disease, or unspecified chronic kidney disease; N18.30 Chronic kidney disease, stage 3 unspecified; N40.0 Benign prostatic hyperplasia without lower urinary tract symptoms; E11.22 Type 2 diabetes mellitus with diabetic chronic kidney disease; E11.40 Type 2 diabetes mellitus with diabetic neuropathy, unspecified; E11.622 Type 2 diabetes mellitus with other skin ulcer; I25.10 Atherosclerotic heart disease of native coronary artery without angina pectoris; E11.621 Type 2 diabetes mellitus with foot ulcer; D72.10 Eosinophilia, unspecified; E55.9 Vitamin D deficiency, unspecified; F41.9 Anxiety disorder, unspecified; F03.90 Unspecified dementia, unspecified severity, without behavioral disturbance, psychotic disturbance, mood disturbance, and anxiety; F25.9 Schizoaffective disorder, unspecified; L89.619 Pressure ulcer of right heel, unspecified stage; D64.9 Anemia, unspecified; G89.29 Other chronic pain; E11.36 Type 2 diabetes mellitus with diabetic cataract; Z79.4 Long term (current) use of insulin; Z79.02 Long term (current) use of antithrombotics/antiplatelets; Z79.82 Long term (current) use of aspirin; Z79.899 Other long term (current) drug therapy; Z79.52 Long term (current) use of systemic steroids; K21.9 Gastro-esophageal reflux disease without esophagitis; M62.562 Muscle wasting and atrophy, not elsewhere classified, left lower leg; M62.561 Muscle wasting and atrophy, not elsewhere classified, right lower leg; D69.6 Thrombocytopenia, unspecified; F09 Unspecified mental disorder due to known physiological condition; B96.20 Unspecified Escherichia coli [E. coli] as the cause of diseases classified elsewhere; T36.8X5A Adverse effect of other systemic antibiotics, initial encounter; Y92.129 Unspecified place in nursing home as the place of occurrence of the external cause; Z86.16 Personal history of COVID-19
CPT/HCPCS: 36410; 36415; 70450-TC; 71045-TC; 80048-TC; 80076-TC; 81001; 82140-TC; 82962-TC; 84443-TC; 85025-TC; 85378-TC; 85730-TC; 86140-TC; 87081-TC; 87086-TC; 87186-TC; A4216; A6253; G0378; J0696; J0885; J1650; J1815; J1956; J7030; J7042; J7060; U0003

== ENCOUNTER 2023-02-12 12:43 | Inpatient (IN) | payer MEDICARE, OTHER ==
[~2023-02-12] VITALS: Ht 167.6 cm; Wt 65.8 kg
[~2023-02-12 12:43] MED LIST changes: +*INS REG3 IJ; -ACET-2605 PO; +AMIN887L PO; +ASCO500C17 PO; +DORZ10DR10 EACHEYE; -DORZ10DR10 OP; -EPOE1VIA12 IJ; +EPOE1VIA12 SQ; -ESCI5TAB PO; -FOLI0.8T3 PO; -HYDR-4076 PO; -KRIL1CAP PO; -LISI40TA13 PO; -POLY15DR40 EACHEYE; +ZINC220C6 PO
[2023-02-12 15:25] LABS: BASOPHILS # (AUTO) 0.1 K/uL (0.0-0.2); BASOPHILS % (AUTO) 0.7 % (0.0-2.0); EOSINOPHILS # (AUTO) 0.2 K/uL (0.0-0.7); HEMATOCRIT 40 % (39-51); HEMOGLOBIN 12.4 g/dL (13.5-17.5); LYMPHOCYTES # (AUTO) 1.4 K/uL (0.8-4.8); LYMPHOCYTES % (AUTO) 15.7 % (20.0-44.0); MEAN CORPUSCULAR HEMOGLOBIN 26 PG (26.0-33.0); MEAN CORPUSCULAR HGB CONC 31 g/dl (31.0-36.0); MEAN CORPUSCULAR VOLUME 84 fL (80-96); MONOCYTES # (AUTO) 0.6 K/uL (0.1-1.30); MONOCYTES % (AUTO) 7.1 % (2.0-12.0); NEUTROPHILS # (AUTO) 6.6 K/uL (1.8-8.9); NEUTROPHILS % (AUTO) 74.5 % (43.0-81.0); PLATELET COUNT (AUTO) 123 K/uL (150-450); RED BLOOD CELL COUNT(AUTO) 4.76 MIL/uL (4.5-6.0); RED CELL DISTRIBUTION WIDTH 14.6 % (11.5-15.0); WHITE BLOOD COUNT (AUTO) 8.8 K/uL (4.3-11.0)
[2023-02-12 15:36] LABS: SERUM AMMONIA 26 umol/L (11-32)
[2023-02-12 15:46] LABS: LACTIC ACID 0.8 mmol/L (0.4-2.0)
[2023-02-12 15:49] LABS: THYROID STIMULATING HORMONE 2.026 uIU/mL (0.358-3.74)
[2023-02-12 15:52] LABS: CALCIUM, SERUM 8.2 mg/dL (8.5-10.1); CARBON DIOXIDE 18 mmol/L (21-32); CHLORIDE 106 mmol/L (98-107); CREATININE 1.7 mg/dL (0.6-1.3); GLUCOSE 170 mg/dL (74-106); POTASSIUM 3.9 mmol/L (3.5-5.1); SODIUM SERUM 132 mmol/L (136-145); UREA NITROGEN, BLOOD 59 mg/dL (7-18)
[2023-02-12 15:56] LABS: ALANINE AMINOTRANSFERASE 42 U/L (12-78); ALBUMIN 2.2 g/dL (3.4-5.0); ALCOHOL, BLOOD < 3 mg/dL (0-10); ALKALINE PHOSPHATASE 152 U/L (46-116); ASPARTATE AMINOTRANSFERASE 30 U/L (15-37); BILIRUBIN,DIRECT 0.1 mg/dL (0.0-0.2); BILIRUBIN,TOTAL 0.4 mg/dL (0.2-1.0); TOTAL PROTEIN, SERUM 6.4 g/dL (6.4-8.2)
[2023-02-12] MEDS ORDERED: HEPARIN INFUSION/D5W 500 ML IV PRN (17:30)
[2023-02-12 17:54] LABS: INR 1.13 (0.91-1.10); PARTIAL THROMBOPLASTIN TIME 40.8 SEC (24.3-34.3); PROTHROMBIN TIME 11.8 SECS (9.2-11.1)
[2023-02-12] MEDS ORDERED: HEPARIN SODIUM,PORCINE/PF 50 UNIT/5 ML DISP.SYRIN IV ONE (18:00)
[2023-02-12] MEDS ORDERED: *INS REG3 SQ (18:04)
[2023-02-12] MEDS ORDERED: ALLA266C2 TP (18:04)
[2023-02-12] MEDS ORDERED: AMIN30LI2 PO (18:04)
[2023-02-12] MEDS ORDERED: FAMO40TA7 PO (18:04)
[2023-02-12] MEDS ORDERED: PETR113O TP (18:04)
[2023-02-12] MEDS ORDERED: ASCO-340 PO (18:04)
[2023-02-12] MEDS ORDERED: MULT-213 PO (18:04)
[2023-02-12] MEDS ORDERED: NITR0.4T48 SL (18:04)
[2023-02-12] MEDS ORDERED: LATA7.5D EACHEYE (18:04)
[2023-02-12] MEDS ORDERED: APIX5TAB PO (18:04)
[2023-02-12] MEDS ORDERED: POLY15DR31 EACHEYE (18:04)
[2023-02-12] MEDS ORDERED: NA P133E RC (18:04)
[2023-02-12] MEDS ORDERED: GLUC1KIT IM (18:04)
[2023-02-12 18:25] LABS: AMPHETAMINE, URINE NEGATIVE (NEGATIVE); APPEARANCE,URINE SLIGHTLY CLOUDY (CLEAR); BARBITURATE, URINE NEGATIVE (NEGATIVE); BENZODIAZEPINE, URINE NEGATIVE (NEGATIVE); BILIRUBIN,URINE NEGATIVE (NEGATIVE); BLOOD, URINE 2+ Ery/uL (NEGATIVE); CANNABINOID, URINE NEGATIVE (NEGATIVE); COCCAINE, URINE NEGATIVE (NEGATIVE); COLOR,URINE YELLOW (YELLOW); KETONES,URINE NEGATIVE (NEGATIVE); LEUKOCYTE ESTERASE ,URINE 3+ (NEGATIVE); NITRITE, URINE NEGATIVE (NEGATIVE); OPIATE, URINE NEGATIVE (NEGATIVE); PHENCYCLIDINE SCREEN,URINE NEGATIVE (NEGATIVE); PROTEIN,URINE 2+ mg/dl (NEGATIVE); UGLUCOSE NEGATIVE (NEGATIVE); UROBILINOGEN,URINE 0.2 EU/dL (0.2)
[2023-02-12 18:28] LABS: ADD URINE CULTURE YES; BACTERIA,URINE 4+ /HPF (None Seen); RBC,URINE 21-50 /HPF (0-2); SQUAMOUS EPITHELIAL CELL,UR 0-2 /HPF (None Seen); WBC,URINE 51-80 /HPF (0-3)
[2023-02-12 20:15] VITALS: BP 143/76; TEMP 98; O2SAT 99
[2023-02-12] MEDS ORDERED: DEXTROSE 50%-WATER 50 ML DISP.SYRIN IV PRN (20:30)
[2023-02-12] MEDS ORDERED: Z GUARD REMEDY 4 OZ OINT TP PRN (20:30)
[2023-02-12] MEDS ORDERED: NA PHOS,M-B/NA PHOS,DI-BA 1 EA ENEMA RC ONE (20:30)
[2023-02-12] MEDS ORDERED: ACETAMINOPHEN 325 MG TABLET PO PRN (20:30)
[2023-02-12] MEDS ORDERED: ZOLPIDEM TARTRATE 5 MG TABLET PO PRN (20:30)
[2023-02-12] MEDS ORDERED: ONDANSETRON HCL/PF 4 MG/2 ML VIAL IVP PRN (20:30)
[2023-02-12] MEDS ORDERED: HYDROCODONE/APAP 5/325MG TABLET PO PRN (21:00)
[2023-02-12] MEDS ORDERED: BISACODYL SUPP (10 MG) 10 MG/SUPP.RECT SUPP.RECT RC PRN (21:00)
[2023-02-12] MEDS: PANTOPRAZOLE 40 MG TABLET.DR PO SCH (21:28)
[2023-02-12] MEDS: IV NS 0.9% 1,000 ML IV PRN (21:54)
[2023-02-12] MEDS: CEFTRIAXONE 1 G in IV D5W 50 ML IV SCH (21:54)
[2023-02-12 22:00] VITALS: BP 143/76; TEMP 98; O2SAT 99
[2023-02-12] MEDS: BLOOD SUGAR DIAGNOSTIC 1 EACH STRIP IN SCH (22:07)
[2023-02-12] MEDS: INSULIN REGULAR, HUMAN 100 UNIT/ML 3 ML VIAL SQ PRN (22:08)
[2023-02-12] MEDS: TAMSULOSIN 0.4 MG CAP.SR.24H PO SCH (22:11)
[2023-02-12] MEDS: risperiDONE 1 MG TABLET PO SCH (22:11)
[2023-02-12] MEDS: POLYETHYLENE GLYCOL 3350 17 GM POWD.PACK PO SCH (22:12)
[2023-02-13] MEDS: BLOOD SUGAR DIAGNOSTIC 1 EACH STRIP IN SCH ×4 (06:41→21:50)
[2023-02-13] MEDS: INSULIN REGULAR, HUMAN 100 UNIT/ML 3 ML VIAL SQ PRN ×2 (06:41→22:11)
[2023-02-13 08:00] VITALS: BP 132/80; TEMP 97.9; O2SAT 98
[2023-02-13] MEDS: DORZOLAMIDE OPTH 2% 10 ML BOTTLE EACHEYE SCH ×2 (09:00→17:00)
[2023-02-13] MEDS: FLUDROCORTISONE 0.1 MG TABLET PO SCH (09:05)
[2023-02-13] MEDS: PANTOPRAZOLE 40 MG TABLET.DR PO SCH ×2 (09:05→20:03)
[2023-02-13] MEDS: POLYVINYL ALCOHOL 15 ML BOTTLE EACHEYE SCH ×3 (09:06→18:23)
[2023-02-13 09:27] LABS: BASOPHILS # (AUTO) 0.1 K/uL (0.0-0.2); BASOPHILS % (AUTO) 0.7 % (0.0-2.0); EOSINOPHILS # (AUTO) 0.2 K/uL (0.0-0.7); EOSINOPHILS % (AUTO) 2.8 % (0.0-6.0); HEMATOCRIT 43 % (39-51); HEMOGLOBIN 12.9 g/dL (13.5-17.5); LYMPHOCYTES # (AUTO) 1.3 K/uL (0.8-4.8); LYMPHOCYTES % (AUTO) 16.5 % (20.0-44.0); MEAN CORPUSCULAR HEMOGLOBIN 27 PG (26.0-33.0); MEAN CORPUSCULAR HGB CONC 30 g/dl (31.0-36.0); MEAN CORPUSCULAR VOLUME 87 fL (80-96); MONOCYTES # (AUTO) 0.6 K/uL (0.1-1.30); MONOCYTES % (AUTO) 7.7 % (2.0-12.0); NEUTROPHILS # (AUTO) 5.7 K/uL (1.8-8.9); NEUTROPHILS % (AUTO) 72.3 % (43.0-81.0); PLATELET COUNT (AUTO) 117 K/uL (150-450); RED BLOOD CELL COUNT(AUTO) 4.86 MIL/uL (4.5-6.0); RED CELL DISTRIBUTION WIDTH 14.9 % (11.5-15.0); WHITE BLOOD COUNT (AUTO) 7.8 K/uL (4.3-11.0)
[2023-02-13 09:44] LABS: CALCIUM, SERUM 8.2 mg/dL (8.5-10.1); CARBON DIOXIDE 17 mmol/L (21-32); CHLORIDE 108 mmol/L (98-107); CREATININE 1.5 mg/dL (0.6-1.3); GLUCOSE 82 mg/dL (74-106); MAGNESIUM 3.1 mg/dL (1.8-2.4); PHOSPHORUS 3.2 mg/dL (2.5-4.9); POTASSIUM 3.7 mmol/L (3.5-5.1); SODIUM SERUM 134 mmol/L (136-145); UREA NITROGEN, BLOOD 54 mg/dL (7-18)
[2023-02-13] MEDS: PROSTAT (PYXIS) 30 ML UDC PO SCH ×2 (13:30→17:58)
[2023-02-13] MEDS: ASCORBIC ACID 500 MG TABLET PO SCH (17:57)
[2023-02-13] MEDS: MULTIVIT W/MINERALS 1 TAB TABLET PO SCH (17:57)
[2023-02-13] MEDS: DOCUSATE SODIUM 100 MG CAPSULE PO SCH (17:57)
[2023-02-13] MEDS ORDERED: PROSTAT (PYXIS) 30 ML UDC PO SCH (18:00)
[2023-02-13] MEDS ORDERED: Medication Not On Formulary EA (Cranberry Extract (Cranberry) 425 MG) PO SCH (18:00)
[2023-02-13 18:54] VITALS: BP 129/75; TEMP 98.1; O2SAT 99
[2023-02-13 20:00] VITALS: BP 140/81; TEMP 99; O2SAT 98
[2023-02-13] MEDS: CEFTRIAXONE 1 G in IV D5W 50 ML IV SCH (20:22)
[2023-02-13] MEDS: LATANOPROST EYE DROP 0.005% 2.5 ML BOTTLE EACHEYE SCH (21:49)
[2023-02-13] MEDS: TAMSULOSIN 0.4 MG CAP.SR.24H PO SCH (21:52)
[2023-02-13] MEDS: POLYETHYLENE GLYCOL 3350 17 GM POWD.PACK PO SCH (21:53)
[2023-02-13] MEDS: risperiDONE 1 MG TABLET PO SCH (21:53)
[2023-02-13] MEDS: IV NS 0.9% 1,000 ML IV PRN (22:17)
[2023-02-14] MEDS: BLOOD SUGAR DIAGNOSTIC 1 EACH STRIP IN SCH ×4 (05:32→22:10)
[2023-02-14 08:00] VITALS: BP 121/71; TEMP 98.1; O2SAT 98
[2023-02-14] MEDS: PANTOPRAZOLE 40 MG TABLET.DR PO SCH ×2 (08:57→20:10)
[2023-02-14] MEDS: FLUDROCORTISONE 0.1 MG TABLET PO SCH (08:57)
[2023-02-14] MEDS: ZINC SULFATE 220 MG CAPSULE PO SCH (08:57)
[2023-02-14] MEDS: PROSTAT (PYXIS) 30 ML UDC PO SCH ×3 (09:02→17:50)
[2023-02-14] MEDS: DORZOLAMIDE OPTH 2% 10 ML BOTTLE EACHEYE SCH ×2 (09:02→17:49)
[2023-02-14] MEDS: POLYVINYL ALCOHOL 15 ML BOTTLE EACHEYE SCH ×3 (09:02→17:49)
[2023-02-14 11:46] LABS: BASOPHILS % (AUTO) 0.5 % (0.0-2.0); EOSINOPHILS # (AUTO) 0.2 K/uL (0.0-0.7); EOSINOPHILS % (AUTO) 2.7 % (0.0-6.0); HEMATOCRIT 40 % (39-51); LYMPHOCYTES # (AUTO) 1.2 K/uL (0.8-4.8); LYMPHOCYTES % (AUTO) 15.7 % (20.0-44.0); MEAN CORPUSCULAR HEMOGLOBIN 26 PG (26.0-33.0); MEAN CORPUSCULAR HGB CONC 30 g/dl (31.0-36.0); MEAN CORPUSCULAR VOLUME 86 fL (80-96); MONOCYTES # (AUTO) 0.7 K/uL (0.1-1.30); MONOCYTES % (AUTO) 9.1 % (2.0-12.0); NEUTROPHILS # (AUTO) 5.3 K/uL (1.8-8.9); PLATELET COUNT (AUTO) 130 K/uL (150-450); RED BLOOD CELL COUNT(AUTO) 4.61 MIL/uL (4.5-6.0); RED CELL DISTRIBUTION WIDTH 15.1 % (11.5-15.0); WHITE BLOOD COUNT (AUTO) 7.3 K/uL (4.3-11.0)
[2023-02-14 11:58] LABS: CALCIUM, SERUM 7.8 mg/dL (8.5-10.1); CARBON DIOXIDE 19 mmol/L (21-32); CHLORIDE 109 mmol/L (98-107); CREATININE 1.6 mg/dL (0.6-1.3); GLUCOSE 170 mg/dL (74-106); MAGNESIUM 2.2 mg/dL (1.8-2.4); PHOSPHORUS 3.3 mg/dL (2.5-4.9); POTASSIUM 3.6 mmol/L (3.5-5.1); SODIUM SERUM 136 mmol/L (136-145); UREA NITROGEN, BLOOD 46 mg/dL (7-18)
[2023-02-14] MEDS: APIXABAN 5 MG TABLET PO SCH ×2 (12:23→17:51)
[2023-02-14] MEDS: INSULIN REGULAR, HUMAN 100 UNIT/ML 3 ML VIAL SQ PRN (12:25)
[2023-02-14 16:00] VITALS: BP 133/78; TEMP 98.2; O2SAT 98
[2023-02-14] MEDS: MULTIVIT W/MINERALS 1 TAB TABLET PO SCH (17:50)
[2023-02-14] MEDS: DOCUSATE SODIUM 100 MG CAPSULE PO SCH (17:50)
[2023-02-14] MEDS: ASCORBIC ACID 500 MG TABLET PO SCH (17:50)
[2023-02-14] MEDS: CEFTRIAXONE 1 G in IV D5W 50 ML IV SCH (21:27)
[2023-02-14] MEDS: POLYETHYLENE GLYCOL 3350 17 GM POWD.PACK PO SCH (21:28)
[2023-02-14] MEDS: risperiDONE 1 MG TABLET PO SCH (21:28)
[2023-02-14] MEDS: TAMSULOSIN 0.4 MG CAP.SR.24H PO SCH (21:32)
[2023-02-14] MEDS: LATANOPROST EYE DROP 0.005% 2.5 ML BOTTLE EACHEYE SCH (22:10)
[2023-02-14 23:23] VITALS: BP 144/80; TEMP 97.9; O2SAT 99
[2023-02-15] MEDS: IV NS 0.9% 1,000 ML IV PRN (03:47)
[2023-02-15 05:47] LABS: BASOPHILS % (AUTO) 0.7 % (0.0-2.0); EOSINOPHILS # (AUTO) 0.2 K/uL (0.0-0.7); EOSINOPHILS % (AUTO) 3.5 % (0.0-6.0); HEMATOCRIT 38 % (39-51); HEMOGLOBIN 11.7 g/dL (13.5-17.5); LYMPHOCYTES # (AUTO) 1.3 K/uL (0.8-4.8); LYMPHOCYTES % (AUTO) 22.3 % (20.0-44.0); MEAN CORPUSCULAR HEMOGLOBIN 26 PG (26.0-33.0); MEAN CORPUSCULAR HGB CONC 31 g/dl (31.0-36.0); MEAN CORPUSCULAR VOLUME 85 fL (80-96); MONOCYTES # (AUTO) 0.6 K/uL (0.1-1.30); MONOCYTES % (AUTO) 9.3 % (2.0-12.0); NEUTROPHILS # (AUTO) 3.9 K/uL (1.8-8.9); NEUTROPHILS % (AUTO) 64.2 % (43.0-81.0); PLATELET COUNT (AUTO) 141 K/uL (150-450); RED BLOOD CELL COUNT(AUTO) 4.51 MIL/uL (4.5-6.0); RED CELL DISTRIBUTION WIDTH 14.7 % (11.5-15.0)
[2023-02-15 06:14] LABS: CALCIUM, SERUM 7.6 mg/dL (8.5-10.1); CARBON DIOXIDE 18 mmol/L (21-32); CHLORIDE 113 mmol/L (98-107); CREATININE 1.5 mg/dL (0.6-1.3); GLUCOSE 106 mg/dL (74-106); MAGNESIUM 2.3 mg/dL (1.8-2.4); PHOSPHORUS 3.1 mg/dL (2.5-4.9); POTASSIUM 3.4 mmol/L (3.5-5.1); SODIUM SERUM 141 mmol/L (136-145); UREA NITROGEN, BLOOD 44 mg/dL (7-18)
[2023-02-15] MEDS: BLOOD SUGAR DIAGNOSTIC 1 EACH STRIP IN SCH ×3 (06:18→17:53)
[2023-02-15 08:00] VITALS: BP 145/76; TEMP 98.4; O2SAT 97
[2023-02-15] MEDS: FLUDROCORTISONE 0.1 MG TABLET PO SCH (08:15)
[2023-02-15] MEDS: PANTOPRAZOLE 40 MG TABLET.DR PO SCH (08:15)
[2023-02-15] MEDS: ZINC SULFATE 220 MG CAPSULE PO SCH (08:15)
[2023-02-15] MEDS: APIXABAN 5 MG TABLET PO SCH ×2 (08:22→16:24)
[2023-02-15] MEDS: POLYVINYL ALCOHOL 15 ML BOTTLE EACHEYE SCH ×3 (08:23→16:24)
[2023-02-15] MEDS: DORZOLAMIDE OPTH 2% 10 ML BOTTLE EACHEYE SCH ×2 (08:23→16:24)
[2023-02-15] MEDS: PROSOURCE / PROSTAT (PYXIS) 30 ML UDC PO SCH ×3 (08:23→17:49)
[2023-02-15] MEDS ORDERED: POTASSIUM CHLORIDE 20 MEQ POWDER PACKET PO SCH (10:00)
[2023-02-15] MEDS: INSULIN REGULAR, HUMAN 100 UNIT/ML 3 ML VIAL SQ PRN ×2 (11:22→17:53)
[2023-02-15] MEDS ORDERED: IV NS 0.9% 1,000 ML IV PRN (13:49)
[2023-02-15] MEDS ORDERED: CEFT1VIA15 IV (15:56)
[2023-02-15 16:00] VITALS: BP 155/84; TEMP 97.6; O2SAT 98
[2023-02-15] MEDS: ASCORBIC ACID 500 MG TABLET PO SCH (17:49)
[2023-02-15] MEDS: MULTIVIT W/MINERALS 1 TAB TABLET PO SCH (17:49)
[2023-02-15] MEDS: DOCUSATE SODIUM 100 MG CAPSULE PO SCH (17:49)
[2023-02-15] MEDS: CEFTRIAXONE 1 G in IV D5W 50 ML IV SCH (17:52)
== END 2023-02-15 18:50 | DRG 682 ==
LOC: ER 12:55 → MED 19:33
PROVIDERS: ADMIT Nurse Practitioner Family; ATTEND Nurse Practitioner Family
PROC: 0DB68ZX Excision of Stomach, Via Natural or Artificial Opening Endoscopic, Diagnostic (ICD-10-PCS; principal; 2023-02-13)
DX: N17.9 Acute kidney failure, unspecified (principal); G93.41 Metabolic encephalopathy; N39.0 Urinary tract infection, site not specified; I82.411 Acute embolism and thrombosis of right femoral vein; I69.351 Hemiplegia and hemiparesis following cerebral infarction affecting right dominant side; F03.94 Unspecified dementia, unspecified severity, with anxiety; E87.29 Other acidosis; E44.0 Moderate protein-calorie malnutrition; E87.1 Hypo-osmolality and hyponatremia; R62.7 Adult failure to thrive; K29.70 Gastritis, unspecified, without bleeding; Z86.718 Personal history of other venous thrombosis and embolism; E11.22 Type 2 diabetes mellitus with diabetic chronic kidney disease; I12.9 Hypertensive chronic kidney disease with stage 1 through stage 4 chronic kidney disease, or unspecified chronic kidney disease; N18.9 Chronic kidney disease, unspecified; Z86.16 Personal history of COVID-19; G89.29 Other chronic pain; F25.9 Schizoaffective disorder, unspecified; E78.5 Hyperlipidemia, unspecified; Z79.84 Long term (current) use of oral hypoglycemic drugs; Z79.52 Long term (current) use of systemic steroids; Z86.19 Personal history of other infectious and parasitic diseases; E11.36 Type 2 diabetes mellitus with diabetic cataract; M89.8X9 Other specified disorders of bone, unspecified site; K21.9 Gastro-esophageal reflux disease without esophagitis; I25.10 Atherosclerotic heart disease of native coronary artery without angina pectoris; F41.9 Anxiety disorder, unspecified; E88.09 Other disorders of plasma-protein metabolism, not elsewhere classified; E87.6 Hypokalemia; N40.0 Benign prostatic hyperplasia without lower urinary tract symptoms; Z79.01 Long term (current) use of anticoagulants; E87.8 Other disorders of electrolyte and fluid balance, not elsewhere classified; Z79.02 Long term (current) use of antithrombotics/antiplatelets; Z86.14 Personal history of Methicillin resistant Staphylococcus aureus infection; L89.619 Pressure ulcer of right heel, unspecified stage; Z79.4 Long term (current) use of insulin; Z79.899 Other long term (current) drug therapy; D64.9 Anemia, unspecified; D69.6 Thrombocytopenia, unspecified; E83.41 Hypermagnesemia; B96.89 Other specified bacterial agents as the cause of diseases classified elsewhere
CPT/HCPCS: 36415; 70450-TC; 71045-TC; 80048-TC; 80076-TC; 81001; 82140-TC; 82962-TC; 83605-TC; 83735-TC; 84100-TC; 84443-TC; 84484-TC; 85025-TC; 85730-TC; 87040-TC; 87081-TC; 87086-TC; 88305-TC; 88313-TC; 88342; 92526; 92611-TC; 93971-TC; A4223; G0378; G0480; J0696; J1642; J1815; J2704; J3490; J7030; J7060

== ENCOUNTER 2023-02-26 18:21 | Inpatient (IN) | payer MEDICARE, OTHER ==
[~2023-02-26] VITALS: Ht 167.6 cm; Wt 64.9 kg
[~2023-02-26 18:21] MED LIST changes: -*INS REG3 IJ; +*INS REG3 SQ; +ALLA266C2 TP; +AMIN30LI2 PO; -AMIN887L PO; +APIX5TAB PO; +ASCO-340 PO; -ASCO500C17 PO; -ASPI-1169 PO; +CEFT1VIA15 IV; +FAMO40TA7 PO; +GLUC1KIT IM; +LATA7.5D EACHEYE; +MULT-213 PO; +NA P133E RC; +NITR0.4T48 SL; +PETR113O TP; +POLY15DR31 EACHEYE; -ZINC220C6 PO
[2023-02-26] MEDS ORDERED: AMOX-427 PO (19:07)
[2023-02-26] MEDS ORDERED: ASCO500T21 PO (19:07)
[2023-02-26] MEDS ORDERED: SULF1TAB48 PO (19:07)
[2023-02-26] MEDS ORDERED: CRAN200C PO (19:07)
[2023-02-26 19:30] LABS: BASOPHILS # (AUTO) 0.1 K/uL (0.0-0.2); BASOPHILS % (AUTO) 1.3 % (0.0-2.0); EOSINOPHILS # (AUTO) 0.1 K/uL (0.0-0.7); EOSINOPHILS % (AUTO) 2.2 % (0.0-6.0); HEMATOCRIT 42 % (39-51); LYMPHOCYTES # (AUTO) 1.2 K/uL (0.8-4.8); LYMPHOCYTES % (AUTO) 23.9 % (20.0-44.0); MEAN CORPUSCULAR HEMOGLOBIN 26 PG (26.0-33.0); MEAN CORPUSCULAR HGB CONC 31 g/dl (31.0-36.0); MEAN CORPUSCULAR VOLUME 84 fL (80-96); MONOCYTES # (AUTO) 0.4 K/uL (0.1-1.30); MONOCYTES % (AUTO) 6.8 % (2.0-12.0); NEUTROPHILS # (AUTO) 3.4 K/uL (1.8-8.9); NEUTROPHILS % (AUTO) 65.8 % (43.0-81.0); PLATELET COUNT (AUTO) 114 K/uL (150-450); RED BLOOD CELL COUNT(AUTO) 4.98 MIL/uL (4.5-6.0); RED CELL DISTRIBUTION WIDTH 15.5 % (11.5-15.0); WHITE BLOOD COUNT (AUTO) 5.2 K/uL (4.3-11.0)
[2023-02-26 19:56] LABS: CARBON DIOXIDE 24 mmol/L (21-32); CHLORIDE 105 mmol/L (98-107); CREATININE 2.5 mg/dL (0.6-1.3); GLUCOSE 117 mg/dL (74-106); POTASSIUM 4.9 mmol/L (3.5-5.1); SODIUM SERUM 135 mmol/L (136-145); UREA NITROGEN, BLOOD 49 mg/dL (7-18)
[2023-02-26 20:01] LABS: ALANINE AMINOTRANSFERASE 29 U/L (12-78); ALBUMIN 3.2 g/dL (3.4-5.0); ALKALINE PHOSPHATASE 103 U/L (46-116); ASPARTATE AMINOTRANSFERASE 16 U/L (15-37); BILIRUBIN,DIRECT 0.1 mg/dL (0.0-0.2); BILIRUBIN,TOTAL 0.3 mg/dL (0.2-1.0); TOTAL PROTEIN, SERUM 7.2 g/dL (6.4-8.2)
[2023-02-26 20:39] LABS: APPEARANCE,URINE SLIGHTLY CLOUDY (CLEAR); BILIRUBIN,URINE NEGATIVE (NEGATIVE); BLOOD, URINE 1+ Ery/uL (NEGATIVE); COLOR,URINE YELLOW (YELLOW); KETONES,URINE NEGATIVE (NEGATIVE); LEUKOCYTE ESTERASE ,URINE 3+ (NEGATIVE); NITRITE, URINE NEGATIVE (NEGATIVE); PROTEIN,URINE TRACE mg/dl (NEGATIVE); UGLUCOSE NEGATIVE (NEGATIVE); UROBILINOGEN,URINE 0.2 EU/dL (0.2)
[2023-02-26 20:49] LABS: ADD URINE CULTURE YES; BACTERIA,URINE 2+ /HPF (None Seen); SQUAMOUS EPITHELIAL CELL,UR 0-2 /HPF (None Seen); WBC,URINE 51-80 /HPF (0-3)
[2023-02-26 21:47] VITALS: BP 140/80; TEMP 98.6; O2SAT 95
[2023-02-26] MEDS ORDERED: ONDANSETRON HCL/PF 4 MG/2 ML VIAL IVP PRN (22:30)
[2023-02-26] MEDS ORDERED: ACETAMINOPHEN 325 MG TABLET PO PRN (22:30)
[2023-02-26] MEDS ORDERED: DEXTROSE 50%-WATER 50 ML DISP.SYRIN IV PRN (22:30)
[2023-02-26] MEDS ORDERED: Z GUARD REMEDY 4 OZ OINT TP PRN (22:30)
[2023-02-26] MEDS ORDERED: IV NS 0.9% 1,000 ML IV PRN (22:30)
[2023-02-26] MEDS ORDERED: CEFTRIAXONE 1GM BAG (ER ONLY) 50 ML IV ONE (23:02)
[2023-02-26] MEDS: CEFTRIAXONE 1 G in IV D5W 50 ML IV SCH (23:14)
[2023-02-27] VITALS: BP 120/72; TEMP 97.3; O2SAT 96
[2023-02-27 04:00] VITALS: BP_SYST 120; BP_SYST 136; BP_DIAS 67; BP_DIAS 72; TEMP 207.1; TEMP 97.3; TEMP 97.5; O2SAT 96; O2SAT 99
[2023-02-27 06:20] LABS: BASOPHILS # (AUTO) 0.1 K/uL (0.0-0.2); BASOPHILS % (AUTO) 1.4 % (0.0-2.0); EOSINOPHILS # (AUTO) 0.1 K/uL (0.0-0.7); EOSINOPHILS % (AUTO) 2.1 % (0.0-6.0); HEMATOCRIT 37 % (39-51); HEMOGLOBIN 11.5 g/dL (13.5-17.5); LYMPHOCYTES # (AUTO) 1.2 K/uL (0.8-4.8); LYMPHOCYTES % (AUTO) 22.8 % (20.0-44.0); MEAN CORPUSCULAR HEMOGLOBIN 26 PG (26.0-33.0); MEAN CORPUSCULAR HGB CONC 32 g/dl (31.0-36.0); MEAN CORPUSCULAR VOLUME 83 fL (80-96); MONOCYTES # (AUTO) 0.4 K/uL (0.1-1.30); MONOCYTES % (AUTO) 8.5 % (2.0-12.0); NEUTROPHILS # (AUTO) 3.4 K/uL (1.8-8.9); NEUTROPHILS % (AUTO) 65.2 % (43.0-81.0); PLATELET COUNT (AUTO) 108 K/uL (150-450); WHITE BLOOD COUNT (AUTO) 5.2 K/uL (4.3-11.0)
[2023-02-27] MEDS: BLOOD SUGAR DIAGNOSTIC 1 EACH STRIP IN SCH ×4 (06:27→22:11)
[2023-02-27] MEDS: INSULIN REGULAR, HUMAN 100 UNIT/ML 3 ML VIAL SQ PRN ×2 (06:27→22:12)
[2023-02-27 06:47] LABS: IRON, SERUM 48 ug/dl (50-175); TOTAL IRON BINDING CAPACITY 156 ug/dl (250-450)
[2023-02-27 07:29] LABS: CARBON DIOXIDE 22 mmol/L (21-32); CHLORIDE 107 mmol/L (98-107); CREATININE 2.2 mg/dL (0.6-1.3); GLUCOSE 78 mg/dL (74-106); MAGNESIUM 2.6 mg/dL (1.8-2.4); PHOSPHORUS 3.6 mg/dL (2.5-4.9); POTASSIUM 4.4 mmol/L (3.5-5.1); SODIUM SERUM 135 mmol/L (136-145); UREA NITROGEN, BLOOD 47 mg/dL (7-18)
[2023-02-27 07:49] LABS: CHOLESTEROL 122 mg/dL (<200); HDL CHOLESTEROL 52 mg/dL (40-60); LDL 66 mg/dL (0-99); THYROID STIMULATING HORMONE 2.217 uIU/mL (0.358-3.74); TRIGLYCERIDES 14 mg/dL (30-150)
[2023-02-27 08:00] VITALS: BP 119/69; TEMP 98.6; O2SAT 98
[2023-02-27] MEDS: FLUDROCORTISONE 0.1 MG TABLET PO SCH (09:25)
[2023-02-27] MEDS: FERROUS SULFATE (325 MG) 325 MG/TAB TABLET PO SCH (09:25)
[2023-02-27] MEDS: AMLODIPINE BESYLATE 10 MG TABLET PO SCH (09:25)
[2023-02-27] MEDS: CLOPIDOGREL BISULFATE 75 MG TABLET PO SCH (09:25)
[2023-02-27] MEDS: DORZOLAMIDE OPTH 2% 10 ML BOTTLE EACHEYE SCH ×2 (09:25→17:45)
[2023-02-27] MEDS: DOCUSATE SODIUM 100 MG CAPSULE PO SCH (09:25)
[2023-02-27] MEDS: APIXABAN 5 MG TABLET PO SCH ×2 (09:26→17:45)
[2023-02-27 12:00] VITALS: BP 134/72; TEMP 98.1; O2SAT 98
[2023-02-27] MEDS ORDERED: EPOETIN ALFA (10,000 UNIT) 10,000 UNIT/ML VIAL SQ SCH (15:00)
[2023-02-27 16:00] VITALS: BP 139/78; TEMP 98.6; O2SAT 98
[2023-02-27] MEDS: MAGNESIUM OXIDE 400 MG TABLET PO SCH (17:44)
[2023-02-27] MEDS: IV NS 0.9% 1,000 ML IV PRN (18:34)
[2023-02-27 20:00] VITALS: BP 145/71; TEMP 98.4; O2SAT 97
[2023-02-27 20:37] LABS: APPEARANCE,URINE CLEAR (CLEAR); BILIRUBIN,URINE NEGATIVE (NEGATIVE); BLOOD, URINE 2+ Ery/uL (NEGATIVE); COLOR,URINE YELLOW (YELLOW); KETONES,URINE NEGATIVE (NEGATIVE); LEUKOCYTE ESTERASE ,URINE 2+ (NEGATIVE); NITRITE, URINE NEGATIVE (NEGATIVE); PROTEIN,URINE 1+ mg/dl (NEGATIVE); UGLUCOSE NEGATIVE (NEGATIVE); UROBILINOGEN,URINE 0.2 EU/dL (0.2)
[2023-02-27 20:50] LABS: ADD URINE CULTURE YES; BACTERIA,URINE 1+ /HPF (None Seen); EOSINOPHIL,URINE None Seen; SQUAMOUS EPITHELIAL CELL,UR Few /HPF (None Seen)
[2023-02-27 21:25] LABS: CREATININE, URINE 60.2 MG/DL (30.0-125.0); URINE TOTAL PROTEIN 46.4 mg/dL (0-11.9)
[2023-02-27] MEDS ORDERED: FAMOTIDINE 10 MG TABLET PO SCH (22:00)
[2023-02-27] MEDS: LATANOPROST EYE DROP 0.005% 2.5 ML BOTTLE EACHEYE SCH (22:12)
[2023-02-27] MEDS: TAMSULOSIN 0.4 MG CAP.SR.24H PO SCH (22:12)
[2023-02-27] MEDS: FAMOTIDINE (20 MG) 20 MG TABLET PO SCH (22:13)
[2023-02-27] MEDS: risperiDONE 0.25 MG TABLET PO SCH (22:13)
[2023-02-27] MEDS: CEFTRIAXONE 1 G in IV D5W 50 ML IV SCH (22:14)
[2023-02-28] VITALS: BP 137/68; TEMP 99; O2SAT 97
[2023-02-28 00:02] VITALS: BP 137/68; TEMP 99; O2SAT 97
[2023-02-28 05:00] VITALS: BP 152/71; TEMP 97.7; O2SAT 97
[2023-02-28] MEDS: IV NS 0.9% 1,000 ML IV PRN ×2 (05:07→18:05)
[2023-02-28] MEDS: INSULIN REGULAR, HUMAN 100 UNIT/ML 3 ML VIAL SQ PRN ×2 (06:55→22:24)
[2023-02-28] MEDS: BLOOD SUGAR DIAGNOSTIC 1 EACH STRIP IN SCH ×4 (06:55→22:23)
[2023-02-28 07:18] LABS: BASOPHILS # (AUTO) 0.1 K/uL (0.0-0.2); BASOPHILS % (AUTO) 1.2 % (0.0-2.0); EOSINOPHILS # (AUTO) 0.1 K/uL (0.0-0.7); EOSINOPHILS % (AUTO) 2.9 % (0.0-6.0); HEMATOCRIT 39 % (39-51); LYMPHOCYTES # (AUTO) 1.3 K/uL (0.8-4.8); LYMPHOCYTES % (AUTO) 27.1 % (20.0-44.0); MEAN CORPUSCULAR HEMOGLOBIN 26 PG (26.0-33.0); MEAN CORPUSCULAR HGB CONC 31 g/dl (31.0-36.0); MEAN CORPUSCULAR VOLUME 85 fL (80-96); MONOCYTES # (AUTO) 0.4 K/uL (0.1-1.30); MONOCYTES % (AUTO) 8.3 % (2.0-12.0); NEUTROPHILS # (AUTO) 2.9 K/uL (1.8-8.9); NEUTROPHILS % (AUTO) 60.5 % (43.0-81.0); PLATELET COUNT (AUTO) 100 K/uL (150-450); RED BLOOD CELL COUNT(AUTO) 4.59 MIL/uL (4.5-6.0); RED CELL DISTRIBUTION WIDTH 15.4 % (11.5-15.0); WHITE BLOOD COUNT (AUTO) 4.7 K/uL (4.3-11.0)
[2023-02-28 08:10] LABS: ALANINE AMINOTRANSFERASE 20 U/L (12-78); ALBUMIN 2.7 g/dL (3.4-5.0); ALKALINE PHOSPHATASE 85 U/L (46-116); ASPARTATE AMINOTRANSFERASE 13 U/L (15-37); BILIRUBIN,TOTAL 0.3 mg/dL (0.2-1.0); CALCIUM, SERUM 8.1 mg/dL (8.5-10.1); CARBON DIOXIDE 20 mmol/L (21-32); CHLORIDE 107 mmol/L (98-107); GLUCOSE 68 mg/dL (74-106); MAGNESIUM 2.9 mg/dL (1.8-2.4); PHOSPHORUS 3.2 mg/dL (2.5-4.9); POTASSIUM 3.9 mmol/L (3.5-5.1); SODIUM SERUM 136 mmol/L (136-145); TOTAL PROTEIN, SERUM 6.3 g/dL (6.4-8.2); UREA NITROGEN, BLOOD 38 mg/dL (7-18)
[2023-02-28] MEDS: DORZOLAMIDE OPTH 2% 10 ML BOTTLE EACHEYE SCH ×2 (08:35→17:53)
[2023-02-28] MEDS: CLOPIDOGREL BISULFATE 75 MG TABLET PO SCH (08:36)
[2023-02-28] MEDS: FLUDROCORTISONE 0.1 MG TABLET PO SCH (08:36)
[2023-02-28] MEDS: AMLODIPINE BESYLATE 10 MG TABLET PO SCH (08:36)
[2023-02-28] MEDS: FERROUS SULFATE (325 MG) 325 MG/TAB TABLET PO SCH (08:36)
[2023-02-28] MEDS: DOCUSATE SODIUM 100 MG CAPSULE PO SCH (08:36)
[2023-02-28] MEDS: APIXABAN 5 MG TABLET PO SCH ×2 (08:38→17:55)
[2023-02-28 09:08] VITALS: BP 146/85; TEMP 97.9; O2SAT 97
[2023-02-28 10:13] LABS: CREATINE KINASE, TOTAL 31 U/L (39-308)
[2023-02-28 11:17] LABS: OCCULT BLOOD STOOL NEGATIVE (NEGATIVE)
[2023-02-28 16:19] VITALS: BP 142/72; TEMP 97.5; O2SAT 97
[2023-02-28] MEDS: MAGNESIUM OXIDE 400 MG TABLET PO SCH (17:53)
[2023-02-28 20:00] VITALS: BP 147/73; TEMP 98.6; O2SAT 99
[2023-02-28] MEDS: LATANOPROST EYE DROP 0.005% 2.5 ML BOTTLE EACHEYE SCH (22:21)
[2023-02-28] MEDS: FAMOTIDINE (20 MG) 20 MG TABLET PO SCH (22:21)
[2023-02-28] MEDS: TAMSULOSIN 0.4 MG CAP.SR.24H PO SCH (22:22)
[2023-02-28] MEDS: risperiDONE 0.25 MG TABLET PO SCH (22:22)
[2023-02-28] MEDS: CEFTRIAXONE 1 G in IV D5W 50 ML IV SCH (22:27)
[2023-03-01] MEDS: IV NS 0.9% 1,000 ML IV PRN (04:46)
[2023-03-01] MEDS: BLOOD SUGAR DIAGNOSTIC 1 EACH STRIP IN SCH ×3 (07:02→17:42)
[2023-03-01] MEDS: INSULIN REGULAR, HUMAN 100 UNIT/ML 3 ML VIAL SQ PRN ×3 (07:02→17:43)
[2023-03-01 07:33] LABS: CALCIUM, SERUM 7.9 mg/dL (8.5-10.1); CARBON DIOXIDE 19 mmol/L (21-32); CHLORIDE 111 mmol/L (98-107); CREATININE 1.6 mg/dL (0.6-1.3); GLUCOSE 68 mg/dL (74-106); SODIUM SERUM 138 mmol/L (136-145); UREA NITROGEN, BLOOD 27 mg/dL (7-18)
[2023-03-01 08:00] VITALS: BP 138/78; TEMP 98.6; O2SAT 97
[2023-03-01 08:06] LABS: PTH, INTACT 59 pg/mL (15-65)
[2023-03-01] MEDS: FLUDROCORTISONE 0.1 MG TABLET PO SCH (08:56)
[2023-03-01] MEDS: FERROUS SULFATE (325 MG) 325 MG/TAB TABLET PO SCH (08:59)
[2023-03-01] MEDS: DOCUSATE SODIUM 100 MG CAPSULE PO SCH (08:59)
[2023-03-01] MEDS: CLOPIDOGREL BISULFATE 75 MG TABLET PO SCH (08:59)
[2023-03-01] MEDS: AMLODIPINE BESYLATE 10 MG TABLET PO SCH (08:59)
[2023-03-01] MEDS: DORZOLAMIDE OPTH 2% 10 ML BOTTLE EACHEYE SCH ×2 (09:00→17:41)
[2023-03-01] MEDS: APIXABAN 5 MG TABLET PO SCH ×2 (09:13→17:00)
[2023-03-01 09:24] LABS: BASOPHILS # (AUTO) 0.1 K/uL (0.0-0.2); BASOPHILS % (AUTO) 1.5 % (0.0-2.0); EOSINOPHILS # (AUTO) 0.2 K/uL (0.0-0.7); EOSINOPHILS % (AUTO) 3.8 % (0.0-6.0); HEMATOCRIT 39 % (39-51); HEMOGLOBIN 12.2 g/dL (13.5-17.5); LYMPHOCYTES % (AUTO) 21.7 % (20.0-44.0); MEAN CORPUSCULAR HEMOGLOBIN 26 PG (26.0-33.0); MEAN CORPUSCULAR HGB CONC 31 g/dl (31.0-36.0); MEAN CORPUSCULAR VOLUME 85 fL (80-96); MONOCYTES # (AUTO) 0.3 K/uL (0.1-1.30); MONOCYTES % (AUTO) 6.4 % (2.0-12.0); NEUTROPHILS % (AUTO) 66.6 % (43.0-81.0); PLATELET COUNT (AUTO) 103 K/uL (150-450); RED BLOOD CELL COUNT(AUTO) 4.64 MIL/uL (4.5-6.0); RED CELL DISTRIBUTION WIDTH 15.9 % (11.5-15.0); WHITE BLOOD COUNT (AUTO) 4.5 K/uL (4.3-11.0)
[2023-03-01] MEDS ORDERED: FAMO20TA80 PO (13:40)
[2023-03-01] MEDS ORDERED: CEFT1FRO2 IV (13:40)
[2023-03-01] MEDS ORDERED: APIX2.5T PO (13:40)
[2023-03-01] MEDS ORDERED: EPOETIN ALFA-EPBX 4,000 UNIT/ML VIAL SQ SCH (15:00)
[2023-03-01 16:00] VITALS: BP 147/80; TEMP 98.2; O2SAT 97
[2023-03-01 16:07] LABS: *SPE A/G RATIO 0.9 (0.7-1.7); *SPE ALBUMIN 2.8 g/dL (2.9-4.4); *SPE ALPHA-1-GLOBULIN 0.2 g/dL (0.0-0.4); *SPE ALPHA-2-GLOBULIN 0.6 g/dL (0.4-1.0); *SPE BETA GLOBULIN 0.8 g/dL (0.7-1.3); *SPE GLOBULIN, TOTAL 3.1 g/dL (2.2-3.9); *SPE M-SPIKE Not Observed g/dL (Not Observed); *SPE PROTEIN TOTAL 5.9 g/dL (6.0-8.5); *SPEGAMMA GLOBULIN 1.4 g/dL (0.4-1.8)
== END 2023-03-01 18:30 | DRG 73 ==
LOC: ER 18:39 → TELE 21:04 → MED 02-28 10:12
PROVIDERS: ADMIT Nurse Practitioner Acute Care; ATTEND Nurse Practitioner Acute Care
DX: G90.8 Other disorders of autonomic nervous system (principal); N17.0 Acute kidney failure with tubular necrosis; N39.0 Urinary tract infection, site not specified; E87.1 Hypo-osmolality and hyponatremia; I69.351 Hemiplegia and hemiparesis following cerebral infarction affecting right dominant side; M86.60 Other chronic osteomyelitis, unspecified site; L97.419 Non-pressure chronic ulcer of right heel and midfoot with unspecified severity; Z20.822 Contact with and (suspected) exposure to COVID-19; N18.9 Chronic kidney disease, unspecified; I12.9 Hypertensive chronic kidney disease with stage 1 through stage 4 chronic kidney disease, or unspecified chronic kidney disease; E11.22 Type 2 diabetes mellitus with diabetic chronic kidney disease; E11.69 Type 2 diabetes mellitus with other specified complication; E11.621 Type 2 diabetes mellitus with foot ulcer; Z86.16 Personal history of COVID-19; N40.0 Benign prostatic hyperplasia without lower urinary tract symptoms; G89.29 Other chronic pain; Z86.19 Personal history of other infectious and parasitic diseases; E11.36 Type 2 diabetes mellitus with diabetic cataract; L89.156 Pressure-induced deep tissue damage of sacral region; Z79.01 Long term (current) use of anticoagulants; M89.8X9 Other specified disorders of bone, unspecified site; F25.9 Schizoaffective disorder, unspecified; Z79.4 Long term (current) use of insulin; Z79.02 Long term (current) use of antithrombotics/antiplatelets; Z79.52 Long term (current) use of systemic steroids; Z79.899 Other long term (current) drug therapy; D63.8 Anemia in other chronic diseases classified elsewhere; E86.1 Hypovolemia; I25.10 Atherosclerotic heart disease of native coronary artery without angina pectoris; F03.90 Unspecified dementia, unspecified severity, without behavioral disturbance, psychotic disturbance, mood disturbance, and anxiety; Z86.718 Personal history of other venous thrombosis and embolism; K80.20 Calculus of gallbladder without cholecystitis without obstruction; K29.70 Gastritis, unspecified, without bleeding; B96.89 Other specified bacterial agents as the cause of diseases classified elsewhere
CPT/HCPCS: 36415; 70450-TC; 71045-TC; 76770-TC; 80048-TC; 80053-TC; 80061-TC; 80076-TC; 81001; 82272-TC; 82550-TC; 82570-TC; 82962-TC; 83540-TC; 83735-TC; 83880; 83970; 84100-TC; 84155; 84165; 84300-TC; 84443-TC; 84484-TC; 85025-TC; 87081-TC; 87086-TC; 93307-TC; 97112-TC; 97530-TC; A4223; C9803; G0378; J0696; J0885; J1815; J7030; J7060

== ENCOUNTER 2024-07-01 22:23 | Emergency (ER) | payer MEDICARE, OTHER ==
[~2024-07-01] VITALS: Ht 172.7 cm; Wt 43.1 kg
[~2024-07-01 22:23] MED LIST changes: -AMIN30LI2 PO; +APIX2.5T PO; -APIX5TAB PO; -ASCO-340 PO; +ASCO500T21 PO; +CEFT1FRO2 IV; -CEFT1VIA15 IV; +CRAN200C PO; -CRAN425C6 PO; +FAMO20TA80 PO; -HYDR-4384 PO; -PANT40TA49 PO; -PETR113O TP; -POLY15DR31 EACHEYE; -RISP1TAB97 PO
[2024-07-01 23:26] LABS: BASOPHILS % (AUTO) 0.6 % (0.0-2.0); EOSINOPHILS # (AUTO) 0.4 K/uL (0.0-0.7); EOSINOPHILS % (AUTO) 5.5 % (0.0-6.0); HEMATOCRIT 30 % (39-51); HEMOGLOBIN 9.7 g/dL (13.5-17.5); LYMPHOCYTES # (AUTO) 1.3 K/uL (0.8-4.8); LYMPHOCYTES % (AUTO) 16.7 % (20.0-44.0); MEAN CORPUSCULAR HEMOGLOBIN 28 PG (26.0-33.0); MEAN CORPUSCULAR HGB CONC 33 g/dl (31.0-36.0); MEAN CORPUSCULAR VOLUME 86 fL (80-96); MONOCYTES # (AUTO) 0.7 K/uL (0.1-1.30); MONOCYTES % (AUTO) 8.9 % (2.0-12.0); NEUTROPHILS # (AUTO) 5.2 K/uL (1.8-8.9); NEUTROPHILS % (AUTO) 68.3 % (43.0-81.0); PLATELET COUNT (AUTO) 99 K/uL (150-450); RED BLOOD CELL COUNT(AUTO) 3.45 MIL/uL (4.5-6.0); RED CELL DISTRIBUTION WIDTH 13.8 % (11.5-15.0); WHITE BLOOD COUNT (AUTO) 7.7 K/uL (4.3-11.0)
[2024-07-01 23:43] LABS: ACETAMINOPHEN < 10 ug/ml (10-30); ALANINE AMINOTRANSFERASE 17 U/L (12-78); ALBUMIN 2.9 g/dL (3.4-5.0); ALCOHOL, BLOOD < 3 mg/dL (0-10); ALKALINE PHOSPHATASE 73 U/L (46-116); ASPARTATE AMINOTRANSFERASE 16 U/L (15-37); BILIRUBIN,TOTAL 0.4 mg/dL (0.2-1.0); CARBON DIOXIDE 24 mmol/L (21-32); CHLORIDE 107 mmol/L (98-107); CREATININE 1.8 mg/dL (0.6-1.3); GLUCOSE 105 mg/dL (74-106); POTASSIUM 3.8 mmol/L (3.5-5.1); SODIUM SERUM 138 mmol/L (136-145); TOTAL PROTEIN, SERUM 6.7 g/dL (6.4-8.2); UREA NITROGEN, BLOOD 50 mg/dL (7-18)
[2024-07-01 23:45] LABS: SALICYLATE 0.5 mg/dL (2.8-20.0)
[2024-07-01 23:50] LABS: CALCIUM, SERUM 8.2 mg/dL (8.5-10.1)
[2024-07-02 00:53] LABS: AMPHETAMINE, URINE NEGATIVE (NEGATIVE); BARBITURATE, URINE NEGATIVE (NEGATIVE); BENZODIAZEPINE, URINE NEGATIVE (NEGATIVE); CANNABINOID, URINE NEGATIVE (NEGATIVE); COCCAINE, URINE NEGATIVE (NEGATIVE); OPIATE, URINE NEGATIVE (NEGATIVE); PHENCYCLIDINE SCREEN,URINE NEGATIVE (NEGATIVE)
[2024-07-02 01:28] LABS: APPEARANCE,URINE SLIGHTLY CLOUDY (CLEAR); BILIRUBIN,URINE NEGATIVE (NEGATIVE); BLOOD, URINE 1+ Ery/uL (NEGATIVE); COLOR,URINE YELLOW (YELLOW); KETONES,URINE NEGATIVE (NEGATIVE); LEUKOCYTE ESTERASE ,URINE 3+ (NEGATIVE); NITRITE, URINE NEGATIVE (NEGATIVE); PROTEIN,URINE 2+ mg/dl (NEGATIVE); UGLUCOSE NEGATIVE (NEGATIVE); UROBILINOGEN,URINE 0.2 EU/dL (0.2)
[2024-07-02 01:39] LABS: WBC,URINE 51-80 /HPF (0-3)
[2024-07-02 01:40] LABS: ADD URINE CULTURE YES; BACTERIA,URINE Many /HPF (None Seen); FINE GRANULAR CASTS,URINE Few /LPF (None Seen); SQUAMOUS EPITHELIAL CELL,UR Rare /HPF (None Seen)
[2024-07-02] MEDS ORDERED: CEFTRIAXONE 1GM BAG (ER ONLY) 50 ML IV ONE (02:30)
[2024-07-02] MEDS: IV NS 0.9% 1,000 ML IV ONE (02:49)
[2024-07-02] MEDS: CEFTRIAXONE 1 G in IV D5W 50 ML IV ONE (02:49)
[2024-07-02] MEDS ORDERED: AMIN30LI66 PO (09:05)
[2024-07-02] MEDS ORDERED: BRIN10DR EACHEYE (09:05)
[2024-07-02] MEDS ORDERED: CRAN300T PO (09:05)
[2024-07-02] MEDS ORDERED: BUSP5TAB3 PO (09:05)
[2024-07-02] MEDS ORDERED: APIX5TAB PO (09:05)
[2024-07-02] MEDS ORDERED: NITROGLYCERIN 0.4 MG/TAB BOTTLE SL SCH (11:30)
[2024-07-02] MEDS ORDERED: EPOETIN ALFA (10,000 UNIT) 10,000 UNIT/ML VIAL SQ SCH (11:30)
[2024-07-02] MEDS ORDERED: ACETAMINOPHEN 325 MG TABLET PO PRN (11:30)
[2024-07-02 15:00] VITALS: BP 153/82; TEMP 98.4; O2SAT 96
[2024-07-02] MEDS ORDERED: BRINZOLAMIDE 1 % OPHTH SOLN 10 ML BOTTLE EACHEYE SCH (17:00)
[2024-07-02] MEDS ORDERED: APIXABAN 5 MG TABLET PO SCH (17:00)
[2024-07-02] MEDS ORDERED: MAGNESIUM OXIDE 400 MG TABLET PO SCH (18:00)
[2024-07-02] MEDS ORDERED: Medication Not On Formulary EA (Amino AC/Protein Hydr/Whey Pro (Liquacel Liquid Protein PO SCH (18:00)
[2024-07-02] MEDS ORDERED: TAMSULOSIN 0.4 MG CAP.SR.24H PO SCH (22:00)
[2024-07-03] MEDS ORDERED: FAMOTIDINE (20 MG) 20 MG TABLET PO SCH (07:30)
[2024-07-03] MEDS ORDERED: FLUDROCORTISONE 0.1 MG TABLET PO SCH (09:00)
[2024-07-03] MEDS ORDERED: MULTIVIT W/MINERALS 1 TAB TABLET PO SCH (09:00)
[2024-07-03] MEDS ORDERED: Medication Not On Formulary EA (Cranberry Extract (Cranberry) 450 MG) PO SCH (09:00)
[2024-07-03] MEDS ORDERED: AMLODIPINE BESYLATE 10 MG TABLET PO SCH (09:00)
[2024-07-03] MEDS ORDERED: FERROUS SULFATE (325 MG) 325 MG/TAB TABLET PO SCH (09:00)
[2024-07-03] MEDS ORDERED: CLOPIDOGREL BISULFATE 75 MG TABLET PO SCH (09:00)
[2024-07-08] MEDS ORDERED: CEPHALEXIN MONOHYDRATE 500 MG CAPSULE PO SCH (17:00)
== END 2024-07-02 15:10 ==
LOC: ER 22:28
DX: F03.911 Unspecified dementia, unspecified severity, with agitation (principal); E11.9 Type 2 diabetes mellitus without complications; N39.0 Urinary tract infection, site not specified; E86.0 Dehydration; F03.92 Unspecified dementia, unspecified severity, with psychotic disturbance; H40.9 Unspecified glaucoma; I10 Essential (primary) hypertension; I25.10 Atherosclerotic heart disease of native coronary artery without angina pectoris; I69.351 Hemiplegia and hemiparesis following cerebral infarction affecting right dominant side; K21.9 Gastro-esophageal reflux disease without esophagitis; N40.0 Benign prostatic hyperplasia without lower urinary tract symptoms; Z79.01 Long term (current) use of anticoagulants; Z79.02 Long term (current) use of antithrombotics/antiplatelets; Z79.899 Other long term (current) drug therapy; Z86.718 Personal history of other venous thrombosis and embolism; Z20.822 Contact with and (suspected) exposure to COVID-19
CPT/HCPCS: 99285; 70450; 82140; 85025; 36415; 80053; 87426; 80143; 80320; 80307; 96365; 87040; 81001; J0696 ×2; J7060; J7030; G0480

== ENCOUNTER 2025-01-24 13:35 | Inpatient (IN) | payer MEDICARE, OTHER ==
[~2025-01-24] VITALS: Ht 167.6 cm; Wt 84.1 kg
[~2025-01-24 13:35] MED LIST changes: -*INS REG3 SQ; -ALLA266C2 TP; +AMIN30LI66 PO; -APIX2.5T PO; +APIX5TAB PO; -ASCO500T21 PO; -BISA10SU61 RC; +BRIN10DR EACHEYE; +BUSP5TAB3 PO; -CEFT1FRO2 IV; -CRAN200C PO; +CRAN300T PO; -DOCU-141 PO; -DORZ10DR10 EACHEYE; -FAMO20TA80 PO; -GLUC1KIT IM; -MAGN400O6 PO; -NA P133E RC
[2025-01-24] MEDS ORDERED: ASCO-352 PO (14:13)
[2025-01-24] MEDS ORDERED: DOCU100C36 PO (14:13)
[2025-01-24] MEDS ORDERED: DORZ10DR18 EACHEYE (14:13)
[2025-01-24] MEDS ORDERED: ACET325T53 PO (14:13)
[2025-01-24] MEDS ORDERED: MAGN400O6 PO (14:13)
[2025-01-24] MEDS ORDERED: MIRT7.5T10 PO (14:13)
[2025-01-24] MEDS ORDERED: BISA10SU11 RC (14:13)
[2025-01-24] MEDS ORDERED: OLAN5TAB3 PO (14:13)
[2025-01-24] MEDS ORDERED: POVI1MED TP (14:13)
[2025-01-24] MEDS ORDERED: NA P133E RC (14:13)
[2025-01-24] MEDS ORDERED: ATOR10TA PO (14:13)
[2025-01-24 14:22] LABS: PLATELET COUNT (AUTO) 169 K/uL (150-450); RED BLOOD CELL COUNT(AUTO) 2.86 MIL/uL (4.5-6.0); RED CELL DISTRIBUTION WIDTH 15.2 % (11.5-15.0); WHITE BLOOD COUNT (AUTO) 9.9 K/uL (4.3-11.0)
[2025-01-24 14:33] LABS: CALCIUM, SERUM 7.8 mg/dL (8.5-10.1); CREATININE 2.1 mg/dL (0.6-1.3); SODIUM SERUM 138.0 mmol/L (136-145); UREA NITROGEN, BLOOD 51.0 mg/dL (7-18)
[2025-01-24 15:44] LABS: ASPARTATE AMINOTRANSFERASE 26.0 U/L (15-37); TOTAL PROTEIN, SERUM 6.4 g/dL (6.4-8.2)
[2025-01-24 15:46] LABS: LACTIC ACID 1.7 mmol/L (0.4-2.0)
[2025-01-24] MEDS: VANCOMYCIN 1 GM in IV D5W 250 ML IV ONE (16:20)
[2025-01-24] MEDS ORDERED: DOSING PER PHARMACY-CEFEPIME IVPB XX PRN (17:30)
[2025-01-24] MEDS ORDERED: ONDANSETRON HCL/PF 4 MG/2 ML VIAL IVP PRN (17:30)
[2025-01-24] MEDS ORDERED: ACETAMINOPHEN 325 MG TABLET PO PRN (17:30)
[2025-01-24] MEDS ORDERED: DOSING PER PHARMACY-VANCOMYCIN IV XX PRN (17:30)
[2025-01-24] MEDS ORDERED: Z GUARD REMEDY 4 OZ OINT TP PRN (17:30)
[2025-01-24] MEDS ORDERED: DEXTROSE 50%-WATER 50 ML DISP.SYRIN IV PRN (17:30)
[2025-01-24] MEDS: IV NS 0.9% 1,000 ML IV PRN (17:31)
[2025-01-24] MEDS: EPOETIN ALFA (10,000 UNIT) 10,000 UNIT/ML VIAL SQ SCH (17:45)
[2025-01-24] MEDS: BLOOD SUGAR DIAGNOSTIC 1 EACH STRIP IN SCH (17:45)
[2025-01-24] MEDS: INSULIN REGULAR, HUMAN 100 UNIT/ML 3 ML VIAL SQ PRN (17:50)
[2025-01-24] MEDS: CEFEPIME 1 GM in IV D5W 50 ML IV SCH (17:51)
[2025-01-24 20:00] VITALS: BP 123/75; TEMP 97.3; O2SAT 98
[2025-01-24] MEDS: MIRTAZAPINE 15 MG TABLET PO SCH (21:39)
[2025-01-24] MEDS: ATORVASTATIN 10 MG TABLET PO SCH (21:39)
[2025-01-24] MEDS: TAMSULOSIN 0.4 MG CAP.SR.24H PO SCH (21:39)
[2025-01-24] MEDS: LATANOPROST EYE DROP 0.005% 2.5 ML BOTTLE EACHEYE SCH (21:43)
[2025-01-24] MEDS: TEMAZEPAM 7.5 MG CAPSULE PO PRN (22:24)
[2025-01-25 08:00] VITALS: BP 124/69; TEMP 98.4; O2SAT 98
[2025-01-25] MEDS: PANTOPRAZOLE 40 MG TABLET.DR PO SCH (08:05)
[2025-01-25] MEDS: MULTIVIT W/MINERALS 1 TAB TABLET PO SCH (09:37)
[2025-01-25] MEDS: ASCORBIC ACID 500 MG TABLET PO SCH (09:37)
[2025-01-25] MEDS: FERROUS SULFATE (325 MG) 325 MG/TAB TABLET PO SCH (09:37)
[2025-01-25] MEDS: OLANZAPINE 5 MG TABLET PO SCH (09:37)
[2025-01-25] MEDS: FLUDROCORTISONE 0.1 MG TABLET PO SCH (09:37)
[2025-01-25] MEDS: CLOPIDOGREL BISULFATE 75 MG TABLET PO SCH (09:37)
[2025-01-25] MEDS: APIXABAN 5 MG TABLET PO SCH (09:39)
[2025-01-25] MEDS: AMLODIPINE BESYLATE 10 MG TABLET PO SCH (09:40)
[2025-01-25] MEDS: DOCUSATE SODIUM 100 MG CAPSULE PO SCH (09:42)
[2025-01-25] MEDS: DORZOLAMIDE OPTH 2% 10 ML BOTTLE EACHEYE SCH (09:43)
[2025-01-25] MEDS: METRONIDAZOLE 500 MG TABLET PO SCH (13:54)
[2025-01-25 16:00] VITALS: BP 133/76; TEMP 98.8; O2SAT 98
[2025-01-25] MEDS: VANCOMYCIN 750 MG in IV D5W 250 ML IV SCH (17:00)
[2025-01-25] MEDS: CEFEPIME 2 GM in IV D5W 50 ML IV SCH (17:48)
[2025-01-25 18:24] LABS: PLATELET COUNT (AUTO) 148 K/uL (150-450); RED BLOOD CELL COUNT(AUTO) 2.70 MIL/uL (4.5-6.0); RED CELL DISTRIBUTION WIDTH 15.5 % (11.5-15.0); WHITE BLOOD COUNT (AUTO) 10.6 K/uL (4.3-11.0)
[2025-01-25 18:43] LABS: CALCIUM, SERUM 7.4 mg/dL (8.5-10.1); CREATININE 1.9 mg/dL (0.6-1.3); PHOSPHORUS 2.5 mg/dL (2.5-4.9); SODIUM SERUM 138.0 mmol/L (136-145); UREA NITROGEN, BLOOD 48.0 mg/dL (7-18)
[2025-01-25 18:45] LABS: LDL 40.0 mg/dL (0-99)
[2025-01-25 19:20] LABS: EOSINOPHILS % (MANUAL) 2 % (0-4); LYMPHOCYTES % (MANUAL) 9 % (16-48); MONOCYTES % (MANUAL) 6 % (0-11.0); NEUTROPHILS % (MANUAL) 83 (42-76); PLATELET ESTIMATE DECREASED
[2025-01-25 20:00] VITALS: BP 128/69; TEMP 98.8; O2SAT 99
[2025-01-26] VITALS (8 sets, daily range): BP systolic 115–130; BP diastolic 58–73; TEMP 97.5–99; O2SAT 95–98
[2025-01-26 10:25] LABS: PLATELET COUNT (AUTO) 138 K/uL (150-450); RED BLOOD CELL COUNT(AUTO) 2.88 MIL/uL (4.5-6.0); RED CELL DISTRIBUTION WIDTH 15.9 % (11.5-15.0); WHITE BLOOD COUNT (AUTO) 8.8 K/uL (4.3-11.0)
[2025-01-26 10:40] LABS: ASPARTATE AMINOTRANSFERASE 24.0 U/L (15-37); CALCIUM, SERUM 7.2 mg/dL (8.5-10.1); CREATININE 1.9 mg/dL (0.6-1.3); PHOSPHORUS 1.8 mg/dL (2.5-4.9); SODIUM SERUM 137.0 mmol/L (136-145); TOTAL PROTEIN, SERUM 6.3 g/dL (6.4-8.2); UREA NITROGEN, BLOOD 49.0 mg/dL (7-18)
[2025-01-26 10:42] LABS: CREATINE KINASE, TOTAL 96.0 U/L (39-308)
[2025-01-26] MEDS: K PHOS NEUTRAL 250 MG TABLET PO ONE (12:00)
[2025-01-27 08:00] VITALS: BP 137/70; TEMP 98.1; O2SAT 100
[2025-01-27 09:07] LABS: PTH, INTACT 107 pg/mL (15-65)
[2025-01-27 16:00] VITALS: BP 127/69; TEMP 98.6; O2SAT 99
[2025-01-27 18:31] LABS: HIV-1/2 ANTIBODY NON REACTIVE (NONREACTIVE)
[2025-01-27 20:00] VITALS: BP 130/59; TEMP 98.2; O2SAT 98
[2025-01-28] VITALS (9 sets, daily range): BP systolic 105–125; BP diastolic 63–70; TEMP 97.2–98.4; O2SAT 98–99
[2025-01-28 07:44] LABS: PLATELET COUNT (AUTO) 131 K/uL (150-450); RED BLOOD CELL COUNT(AUTO) 2.84 MIL/uL (4.5-6.0); RED CELL DISTRIBUTION WIDTH 16.5 % (11.5-15.0); WHITE BLOOD COUNT (AUTO) 8.3 K/uL (4.3-11.0)
[2025-01-28 08:01] LABS: CALCIUM, SERUM 7.1 mg/dL (8.5-10.1); CREATININE 1.9 mg/dL (0.6-1.3); PHOSPHORUS 2.6 mg/dL (2.5-4.9); SODIUM SERUM 140.0 mmol/L (136-145); UREA NITROGEN, BLOOD 49.0 mg/dL (7-18)
[2025-01-28 08:03] LABS: INR 1.36 (0.91-1.10)
[2025-01-28] MEDS: HEPARIN SODIUM, PORCINE 5000 UNITS/1 ML VIAL SQ SCH (09:00)
[2025-01-29] VITALS (10 sets, daily range): BP systolic 90–124; BP diastolic 44–67; TEMP 97.3–98.6; O2SAT 100
[2025-01-29] MEDS ORDERED: ANESTHESIA TRAY IN PYXIS 1 EA TRAY MC ONE (06:49)
[2025-01-29] MEDS ORDERED: BUPIVACAINE 0.5 % PF 150 MG/30 ML VIAL ONE (06:50)
[2025-01-29] MEDS ORDERED: LIDOCAINE HCL/MPF 1% 30 ML VIAL IJ ONE (06:50)
[2025-01-29] MEDS ORDERED: ROCURONIUM BROMIDE 50 MG/5 ML ONE (07:18)
[2025-01-29] MEDS ORDERED: FENTANYL PF 100MCG/2ML AMPUL ONE (07:18)
[2025-01-29] MEDS ORDERED: SUGAMMADEX SODIUM 200 MG/2 ML VIAL IV ONE (07:18)
[2025-01-29] MEDS ORDERED: CELLULOSE,OXIDIZED 1 PKT EACH MC ONE (07:57)
[2025-01-29] MEDS ORDERED: CELLULOSE,OXIDIZED 1 EA PACK MC ONE ×2 (10:00→12:23)
[2025-01-29 10:16] LABS: PLATELET COUNT (AUTO) 133 K/uL (150-450); RED BLOOD CELL COUNT(AUTO) 2.95 MIL/uL (4.5-6.0); RED CELL DISTRIBUTION WIDTH 16.7 % (11.5-15.0); WHITE BLOOD COUNT (AUTO) 9.2 K/uL (4.3-11.0)
[2025-01-29 10:26] LABS: INR 1.6 (0.91-1.10); IRON, SERUM 49 ug/dl (50-175)
[2025-01-29 10:33] LABS: CALCIUM, SERUM 7.0 mg/dL (8.5-10.1); CREATININE 1.7 mg/dL (0.6-1.3); PHOSPHORUS 2.7 mg/dL (2.5-4.9); SODIUM SERUM 141.0 mmol/L (136-145); UREA NITROGEN, BLOOD 43.0 mg/dL (7-18)
[2025-01-29] MEDS: VANCOMYCIN 1 GM in IV D5W 250ml IV SCH (11:15)
[2025-01-29] MEDS: ALBUMIN 25% 25 GM in PREMIX 1 EA IV SCH (12:43)
[2025-01-29] MEDS: SOD FERRIC GLUC 125 MG in IV NS 0.9% 100 ML IV SCH (15:25)
[2025-01-29] MEDS: CEFEPIME 2 GM in IV D5W 100 ML IV SCH (18:02)
[2025-01-30] VITALS (12 sets, daily range): BP systolic 120–145; BP diastolic 48–73; TEMP 98–99.9; O2SAT 98–100
[2025-01-30 10:28] LABS: PLATELET COUNT (AUTO) 123 K/uL (150-450); RED BLOOD CELL COUNT(AUTO) 2.87 MIL/uL (4.5-6.0); RED CELL DISTRIBUTION WIDTH 17.4 % (11.5-15.0); WHITE BLOOD COUNT (AUTO) 9.3 K/uL (4.3-11.0)
[2025-01-30 10:43] LABS: ASPARTATE AMINOTRANSFERASE 18.0 U/L (15-37); CALCIUM, SERUM 7.5 mg/dL (8.5-10.1); CREATININE 1.7 mg/dL (0.6-1.3); PHOSPHORUS 2.5 mg/dL (2.5-4.9); SODIUM SERUM 142.0 mmol/L (136-145); TOTAL PROTEIN, SERUM 5.7 g/dL (6.4-8.2); UREA NITROGEN, BLOOD 36.0 mg/dL (7-18)
[2025-01-31] VITALS: BP 146/67; TEMP 97.3; O2SAT 100
[2025-01-31 06:37] LABS: PLATELET COUNT (AUTO) 127 K/uL (150-450); RED BLOOD CELL COUNT(AUTO) 2.77 MIL/uL (4.5-6.0); RED CELL DISTRIBUTION WIDTH 17.8 % (11.5-15.0); WHITE BLOOD COUNT (AUTO) 9.0 K/uL (4.3-11.0)
[2025-01-31 06:48] LABS: CALCIUM, SERUM 7.3 mg/dL (8.5-10.1); CREATININE 1.6 mg/dL (0.6-1.3); PHOSPHORUS 2.5 mg/dL (2.5-4.9); SODIUM SERUM 143.0 mmol/L (136-145); UREA NITROGEN, BLOOD 36.0 mg/dL (7-18)
[2025-01-31 07:30] VITALS: BP 138/58; TEMP 98.2; O2SAT 98
[2025-01-31 20:00] VITALS: BP 128/65; TEMP 97.5; O2SAT 98
[2025-02-01] MEDS ORDERED: LIDOCAINE 1% INJ 50 ML MDV IJ ONE (07:21)
[2025-02-01] MEDS ORDERED: BUPIVACAINE 0.5 % PF 150 MG/30 ML VIAL ONE (07:21)
[2025-02-01] MEDS ORDERED: FENTANYL PF 100MCG/2ML AMPUL ONE (07:21)
[2025-02-01 07:30] LABS: PLATELET COUNT (AUTO) 120 K/uL (150-450); RED BLOOD CELL COUNT(AUTO) 2.80 MIL/uL (4.5-6.0); RED CELL DISTRIBUTION WIDTH 18.7 % (11.5-15.0); WHITE BLOOD COUNT (AUTO) 9.2 K/uL (4.3-11.0)
[2025-02-01 07:56] LABS: INR 1.46 (0.91-1.10)
[2025-02-01] MEDS ORDERED: GELATIN SPONGE,ABSORBABLE 1 SPONGE SPONGE TP ONE (07:59)
[2025-02-01] MEDS ORDERED: GELATIN SPONGE,ABSORBABLE 1 EA SPONGE TP ONE (07:59)
[2025-02-01 08:23] LABS: ASPARTATE AMINOTRANSFERASE 22.0 U/L (15-37); CALCIUM, SERUM 7.9 mg/dL (8.5-10.1); CREATININE 1.7 mg/dL (0.6-1.3); PHOSPHORUS 2.2 mg/dL (2.5-4.9); SODIUM SERUM 139.0 mmol/L (136-145); TOTAL PROTEIN, SERUM 5.7 g/dL (6.4-8.2); UREA NITROGEN, BLOOD 36.0 mg/dL (7-18)
[2025-02-01] MEDS ORDERED: ALBUMIN 25% 50 ML IV ONE (08:40)
[2025-02-01 14:47] VITALS: BP 112/62; TEMP 97.7
[2025-02-01 15:02] VITALS: BP 128/64; TEMP 97.7
[2025-02-01 15:32] VITALS: BP 117/74; TEMP 98.4
[2025-02-01 16:00] VITALS: BP 117/74; TEMP 98.4; O2SAT 100
[2025-02-01] MEDS: K PHOS NEUTRAL 250 MG TABLET PO ONE (17:29)
[2025-02-01 20:00] VITALS: BP 120/68; TEMP 98.8; O2SAT 100
[2025-02-01 20:00] LABS: PLATELET COUNT (AUTO) 104 K/uL (150-450); RED BLOOD CELL COUNT(AUTO) 2.64 MIL/uL (4.5-6.0); RED CELL DISTRIBUTION WIDTH 18.6 % (11.5-15.0); WHITE BLOOD COUNT (AUTO) 9.2 K/uL (4.3-11.0)
[2025-02-01] MEDS: VANCOMYCIN 1 GM in IV D5W 250ml IV SCH (21:14)
[2025-02-02 06:56] LABS: PLATELET COUNT (AUTO) 112 K/uL (150-450); RED BLOOD CELL COUNT(AUTO) 2.78 MIL/uL (4.5-6.0); RED CELL DISTRIBUTION WIDTH 18.5 % (11.5-15.0); WHITE BLOOD COUNT (AUTO) 10.9 K/uL (4.3-11.0)
[2025-02-02 07:13] LABS: CALCIUM, SERUM 7.9 mg/dL (8.5-10.1); CREATININE 1.6 mg/dL (0.6-1.3); PHOSPHORUS 2.1 mg/dL (2.5-4.9); SODIUM SERUM 142.0 mmol/L (136-145); UREA NITROGEN, BLOOD 37.0 mg/dL (7-18)
[2025-02-02 09:12] VITALS: BP 130/110; TEMP 97.5; O2SAT 97
[2025-02-02] MEDS: K PHOS NEUTRAL 250 MG TABLET PO ONE (15:28)
[2025-02-02 16:21] VITALS: BP 136/70; TEMP 98.3; O2SAT 99
[2025-02-02 20:00] VITALS: BP 125/67; TEMP 98.6; O2SAT 100
[2025-02-03 08:00] VITALS: BP 128/67; TEMP 98.8; O2SAT 98
[2025-02-03 13:15] LABS: PLATELET COUNT (AUTO) 128 K/uL (150-450); RED BLOOD CELL COUNT(AUTO) 2.76 MIL/uL (4.5-6.0); RED CELL DISTRIBUTION WIDTH 21.0 % (11.5-15.0); WHITE BLOOD COUNT (AUTO) 10.9 K/uL (4.3-11.0)
[2025-02-03 13:26] LABS: CALCIUM, SERUM 7.5 mg/dL (8.5-10.1); CREATININE 1.9 mg/dL (0.6-1.3); PHOSPHORUS 2.9 mg/dL (2.5-4.9); SODIUM SERUM 140.0 mmol/L (136-145); UREA NITROGEN, BLOOD 37.0 mg/dL (7-18)
[2025-02-03 16:00] VITALS: BP 104/67; TEMP 98.4; O2SAT 100
[2025-02-03 20:00] VITALS: BP 120/66; TEMP 98.4; O2SAT 99
[2025-02-04 08:00] VITALS: BP 119/72; TEMP 98.3; O2SAT 98
[2025-02-04 10:19] LABS: CALCIUM, SERUM 7.8 mg/dL (8.5-10.1); CREATININE 2.0 mg/dL (0.6-1.3); SODIUM SERUM 142.0 mmol/L (136-145); UREA NITROGEN, BLOOD 36.0 mg/dL (7-18)
[2025-02-04 10:49] LABS: PLATELET COUNT (AUTO) 122 K/uL (150-450); RED BLOOD CELL COUNT(AUTO) 2.66 MIL/uL (4.5-6.0); RED CELL DISTRIBUTION WIDTH 23.0 % (11.5-15.0); WHITE BLOOD COUNT (AUTO) 10.9 K/uL (4.3-11.0)
[2025-02-04] MEDS: CITRIC ACID/SODIUM CITRATE (BICITRA)15 ML UDC PO SCH (12:04)
[2025-02-04] MEDS: VANCOMYCIN 750 MG in IV D5W 250 ML IV SCH (12:05)
[2025-02-04 16:00] VITALS: BP 102/79; TEMP 97.9; O2SAT 99
[2025-02-04 20:00] VITALS: BP 131/89; TEMP 98.2; O2SAT 92
[2025-02-04 20:27] VITALS: BP 134/62; TEMP 98.2; O2SAT 98
[2025-02-05 08:00] VITALS: BP 125/66; TEMP 97.9; O2SAT 98
[2025-02-05] MEDS: HYDROCODONE/APAP 5/325MG TABLET PO PRN (09:19)
[2025-02-05 12:56] VITALS: BP 110/52; TEMP 97.9; O2SAT 98
[2025-02-05 16:00] VITALS: BP 126/65; TEMP 98.1; O2SAT 97
[2025-02-05] MEDS ORDERED: CEFTRIAXONE 2 G in IV D5W 100 ML IV SCH (16:00)
[2025-02-05] MEDS: CEFEPIME 2 GM in IV D5W 100 ML IV SCH (16:40)
[2025-02-05 16:51] LABS: PLATELET COUNT (AUTO) 110 K/uL (150-450); RED BLOOD CELL COUNT(AUTO) 2.58 MIL/uL (4.5-6.0); RED CELL DISTRIBUTION WIDTH 21.8 % (11.5-15.0); WHITE BLOOD COUNT (AUTO) 7.7 K/uL (4.3-11.0)
[2025-02-05 17:07] LABS: CALCIUM, SERUM 7.8 mg/dL (8.5-10.1); CREATININE 1.8 mg/dL (0.6-1.3); PHOSPHORUS 3.6 mg/dL (2.5-4.9); SODIUM SERUM 142.0 mmol/L (136-145); UREA NITROGEN, BLOOD 36.0 mg/dL (7-18)
[2025-02-05 18:07] LABS: *SPE A/G RATIO 0.7 (0.7-1.7); *SPE ALBUMIN 2.3 g/dL (2.9-4.4); *SPE ALPHA-1-GLOBULIN 0.3 g/dL (0.0-0.4); *SPE ALPHA-2-GLOBULIN 0.7 g/dL (0.4-1.0); *SPE BETA GLOBULIN 0.9 g/dL (0.7-1.3); *SPE GLOBULIN, TOTAL 3.4 g/dL (2.2-3.9); *SPE M-SPIKE Not Observed g/dL (Not Observed); *SPE PROTEIN TOTAL 5.7 g/dL (6.0-8.5); *SPEGAMMA GLOBULIN 1.5 g/dL (0.4-1.8)
[2025-02-05 21:10] VITALS: BP 122/56; TEMP 98.4; O2SAT 97
[2025-02-06 08:00] VITALS: BP 132/61; TEMP 98.1; O2SAT 98
[2025-02-06 08:37] LABS: CALCIUM, SERUM 7.8 mg/dL (8.5-10.1); CREATININE 1.8 mg/dL (0.6-1.3); SODIUM SERUM 142.0 mmol/L (136-145); UREA NITROGEN, BLOOD 34.0 mg/dL (7-18)
[2025-02-06 16:00] VITALS: BP 134/75; TEMP 97.5; O2SAT 98
[2025-02-06 19:00] VITALS: BP 133/69; TEMP 97.9
[2025-02-06 20:00] VITALS: BP 133/69; TEMP 97.9; O2SAT 97
== END 2025-02-06 20:00 | DRG 617 ==
LOC: ER 14:45 → MED 16:41 → TELE 01-29 09:50 → MED 01-31 06:22
PROVIDERS: ADMIT Nurse Practitioner Family
PROC: 30233N1 Transfusion of Nonautologous Red Blood Cells into Peripheral Vein, Percutaneous Approach (ICD-10-PCS; 2025-01-25)
PROC: 0J9R0ZZ Drainage of Left Foot Subcutaneous Tissue and Fascia, Open Approach (ICD-10-PCS; principal; 2025-01-26)
PROC: 0Y6Q0Z0 Detachment at Left 1st Toe, Complete, Open Approach (ICD-10-PCS; 2025-01-29)
PROC: 0Y6U0Z0 Detachment at Left 3rd Toe, Complete, Open Approach (ICD-10-PCS; 2025-01-29)
PROC: 0Y6S0Z0 Detachment at Left 2nd Toe, Complete, Open Approach (ICD-10-PCS; 2025-01-29)
PROC: 0Y6N0Z0 Detachment at Left Foot, Complete, Open Approach (ICD-10-PCS; 2025-02-01)
PROC: 0HRNXK3 Replacement of Left Foot Skin with Nonautologous Tissue Substitute, Full Thickness, External Approach (ICD-10-PCS; 2025-02-01)
DX: E11.69 Type 2 diabetes mellitus with other specified complication (principal); E44.0 Moderate protein-calorie malnutrition; M86.172 Other acute osteomyelitis, left ankle and foot; I69.351 Hemiplegia and hemiparesis following cerebral infarction affecting right dominant side; L02.612 Cutaneous abscess of left foot; L97.526 Non-pressure chronic ulcer of other part of left foot with bone involvement without evidence of necrosis; L03.116 Cellulitis of left lower limb; E11.22 Type 2 diabetes mellitus with diabetic chronic kidney disease; I12.9 Hypertensive chronic kidney disease with stage 1 through stage 4 chronic kidney disease, or unspecified chronic kidney disease; K21.9 Gastro-esophageal reflux disease without esophagitis; N18.9 Chronic kidney disease, unspecified; E11.621 Type 2 diabetes mellitus with foot ulcer; F03.90 Unspecified dementia, unspecified severity, without behavioral disturbance, psychotic disturbance, mood disturbance, and anxiety; E11.51 Type 2 diabetes mellitus with diabetic peripheral angiopathy without gangrene; E11.40 Type 2 diabetes mellitus with diabetic neuropathy, unspecified; E88.09 Other disorders of plasma-protein metabolism, not elsewhere classified; D64.9 Anemia, unspecified; E78.5 Hyperlipidemia, unspecified; N18.4 Chronic kidney disease, stage 4 (severe); N17.9 Acute kidney failure, unspecified; Z98.62 Peripheral vascular angioplasty status; Z86.16 Personal history of COVID-19; Z86.19 Personal history of other infectious and parasitic diseases; L89.619 Pressure ulcer of right heel, unspecified stage; M54.50 Low back pain, unspecified; H26.9 Unspecified cataract; Z79.01 Long term (current) use of anticoagulants; Z79.899 Other long term (current) drug therapy; Z79.02 Long term (current) use of antithrombotics/antiplatelets; N40.0 Benign prostatic hyperplasia without lower urinary tract symptoms; Z79.52 Long term (current) use of systemic steroids; I25.10 Atherosclerotic heart disease of native coronary artery without angina pectoris; H40.9 Unspecified glaucoma; L89.626 Pressure-induced deep tissue damage of left heel; F25.9 Schizoaffective disorder, unspecified; M20.12 Hallux valgus (acquired), left foot
CPT/HCPCS: 36415; 71045-TC; 73630-TC; 73718-TC; 80048-TC; 80053-TC; 80061-TC; 80076-TC; 80202-TC; 82040-TC; 82550-TC; 82728-TC; 82962-TC; 83540-TC; 83605-TC; 83735-TC; 83970; 84100-TC; 84155; 84165; 85025-TC; 85027-TC; 85610-TC; 85652-TC; 85730-TC; 86140-TC; 86803; 86850-TC; 87040-TC; 87070-TC; 87075-TC; 87081-TC; 87186-TC; 87806; 88305-TC; 88311-TC; 93926-TC; A4216; A4217; A4223; A6223; A6253; A6403; G0378; J0692; J0885; J1644; J1815; J2405; J2704; J2916; J3010; J3373; J3374; J3490; J7030; J7040; J7050; J7060; P9016; P9047; Q4104